=== PATIENT | female | born 1955 | race Caucasian/White ===

== ENCOUNTER 2023-09-13 17:35 | Inpatient (IN) | payer MEDICARE, OTHER, SELFPAY ==
[2023-09-13 12:55] VITALS: BP 180/111
[2023-09-13 13:43] LABS: % Basophils 0.3 % (0-2); % Eosinophils 2.2 % (0-6); % Immature Granulocytes 0.8 % (0-0.5); % Lymphocytes 21.7 % (20.5-51.1); % Monocytes 14.1 % (1.7-9.3); % Neutrophils 60.9 % (42.2-75.2); Absolute Eosinophils 0.1 10^3/uL (0-0.7); Absolute Immature Granulocytes 0.1 10^3/uL (0-0.05); Absolute Lymphocytes 1.3 10^3/uL (1.2-3.4); Absolute Monocytes 0.9 10^3/uL (0.1-0.6); Absolute Neutrophils 3.7 10^3/uL (1.4-6.5); Hematocrit 37.8 % (37.0-47.0); Hemoglobin 13.1 g/dL (12.0-16.0); Mean Corp Hgb Conc. 34.7 g/dL (33.0-37.0); Mean Corpuscular Hgb 31.1 pg (27.0-31.0); Mean Corpuscular Volume 89.8 fL (81.0-99.0); Mean Platelet Volume 9.6 fL (7.4-10.4); Nucleated Red Blood Cells % 0 %; Platelet Count 386 10^3/uL (130-400); Red Blood Cell Count 4.21 10^6/uL (4.20-5.40); Red Cell Dist. Width 13.6 % (11.5-14.5)
[2023-09-13 13:56] LABS: ALT (SGPT) 312 U/L (0-35); AST (SGOT) 131 U/L (14-36); Albumin 4.2 g/dl (3.5-5.0); Alkaline Phosphatase 184 U/L (38-126); Blood Urea Nitrogen 9 mg/dl (7-17); Calcium 9.6 mg/dl (8.4-10.2); Carbon Dioxide 23 mmol/L (22-30); Chloride 108 mmol/L (98-107); Glucose 109 mg/dl (70-99); Lipase 235 U/L (23-300); Potassium 3.7 mmol/L (3.5-5.1); Sodium 138 mmol/L (135-145); Total Bilirubin 6.2 mg/dl (0.2-1.3); Total Protein 7.6 g/dl (6.3-8.2); eGFR > 60.00
[2023-09-13 14:08] LABS: Troponin I < 0.012 ng/ml
[2023-09-13 15:20] VITALS: BP 166/92
[2023-09-13] MEDS: MORPHINE SULFATE 4 MG IV (15:47)
[2023-09-13] MEDS: ZOFRAN 4 MG IV (15:47)
--- NOTE | 2023-09-13 16:38 | ED.GENMED ---
History of Present Illness
General
Chief Complaint: Chest Pain
Source: patient and spouse
Exam Limitations: none
Time Seen by Provider: 09/13/23 13:06
Nursing documentation reviewed up to this point in time: agreed with
Travel History
Have you had any contact with someone who has COVID-19?: No
Do you have any symptoms of coronavirus? Fever > 100 degrees, chills, cough, shortness of breath, sore throat, loss of taste or smell, muscle aches, or headache?: No
History of Present Illness
History of Present Illness:
68-year-old female with a past medical history of hypertension, GERD who presents to the emergency room for evaluation of epigastric pain with nausea. Patient reports onset of symptoms about a week ago and they have been intermittent although
constant over the past few days. She reports a pressure sensation in the epigastric region. No clear triggering or relieving factors noted. She reports that she has had associated nausea. Had 1 episode of vomiting on Thursday. She reports very
poor appetite. She noticed that her stools have been very light color and her urine is getting darker. She says she is having generalized pruritus. She is concerned that she is having an issue with her gallbladder or liver and so she came to the
emergency room for assessment. She denies any chest pain or shortness of breath. She denies any fever or chills. She denies any history of liver issues or gallstones.
Past History
Social History
Tobacco: Non-smoker
Personal:
Review of Systems
Review of Systems
All Other Systems: ROS reviewed and negative except as documented in HPI and ROS
Constitutional: Denies fever or chills
EENT: Denies sore throat or runny nose
Respiratory: Denies cough or trouble breathing
Cardiac: Denies chest pain or palpitations
ABD/GI: Reports abdominal pain, nausea, vomiting, anorexia and other (Light stools); Denies diarrhea, constipated, bloody stools or black stools
: Reports dark urine; Denies dysuria or flank pain
Musculoskeletal: Denies neck pain or back pain
Neurological: Denies headache, weakness or numbness
Phy Exam
Physical Exam
Physical Exam:
General: Awake, alert, oriented x3; no acute distress
Head: Normocephalic, atraumatic
Eyes: Conjunctiva normal, sclera anicteric
Throat: Airway intact, handling secretions
Neck: Trachea midline, supple without meningismus
Lungs: Clear to auscultation bilaterally, no wheezing, rales, rhonchi
Heart: Regular rate and rhythm, no murmurs, gallops, or rubs
Abd: Soft, non distended, tender to palpation across the upper abdomen worst in the epigastric region
Neuro: Cranial nerves grossly intact, speech fluid
Skin: no rash
Extremities: No edema in extremities, equal pulses in all extremities
Scores
Heart Failure Risk
Heart Failure Risk Score: Not Applicable
Heart Score for Chest Pain Patients
STEMI patient?: Not applicable
Withdrawal Assessment of Alcohol
Withdrawal Assessment Completed?: Not applicable
Course
Orders/Labs/Results
Orders:
Orders
09/13/23 12:58
EKG [Electrocardiogram (*1)] Urgent
Reason for Study: Chest Pain
EKG- Treatment ONCE
09/13/23 13:29
Complete Blood Count/With Diff Urgent
Comprehensive Metabolic Panel Urgent
Lipase Urgent
Troponin I Urgent
09/13/23 14:27
US Abdomen Complete/Upper Urgent
Comment:
Reason For Exam: upper abd pain, tenderness
09/13/23 15:35
Morphine Sulfate 4 mg IV NOW STA
Ondansetron Injectable [Zofran] 4 mg IV NOW STA
09/13/23 17:14
Admit/Transfer Patient As Directed
Co-Sign Provider:
Level of Care: Inpatient admission
Assign to:: Medical/Surgical
Physician / Group: Simone
Diagnosis: CBD dilation
Reason for Hospitalization: CBD dilation
Expected length of stay greater than two midnights?: Yes
ELOS- Estimated Length of Stay in days: 5
I certify the patient meets the requirements for IP care: Yes
Abnormal Lab Results
09/13/23
13:29
MCH 31.1 H pg
(27.0-31.0)
Abs Immat Gran (auto) 0.1 H 10^3/uL
(0-0.05)
Absolute Monos (auto) 0.9 H 10^3/uL
(0.1-0.6)
Immature Gran % 0.8 H %
(0-0.5)
Monocytes % 14.1 H %
(1.7-9.3)
Chloride 108 H mmol/L
(98-107)
Glucose 109 H mg/dl
(70-99)
Total Bilirubin 6.2 H mg/dl
(0.2-1.3)
AST 131 H U/L
(14-36)
ALT 312 H U/L
(0-35)
Alkaline Phosphatase 184 H U/L
(38-126)
09/13/23 13:29
09/13/23 13:29
Vital Signs
Initial and Last Documented VS:
Initial Vital Signs
Temp Pulse Resp BP Pulse Ox
36.8 C 73 18 180/111 98
09/13/23 12:55 09/13/23 12:55 09/13/23 12:55 09/13/23 12:55 09/13/23 12:55
Last Documented Vital Signs
Temp Pulse Resp BP Pulse Ox
36.8 C 70 16 166/92 97
09/13/23 12:55 09/13/23 15:20 09/13/23 15:20 09/13/23 15:20 04/07/24 15:20
MDM/Problems Addressed
Differential Diagnosis Includes:
Cholelithiasis, cholecystitis, choledocholithiasis, gastritis, anginal equivalent
MDM/Problems Addressed:
68-year-old female presents for evaluation of epigastric discomfort associated with nausea, some vomiting, light stools, dark urine, generalized pruritus. Hypertensive but otherwise normal vitals. Physical exam as above. Plan placed IV check labs
including CBC and CMP, lipase. Will check an EKG and troponin. Will check an upper abdominal ultrasound. Will treat symptomatically. Reassess after the above.
Labs reviewed: CBC unremarkable, CMP shows elevated T. bili at 6.2 with elevated transaminases; lipase normal. Troponin undetectable. Her upper abdominal ultrasound reviewed by me shows dilated CBD but no clear signs of acute cholecystitis and
without any fever or leukocytosis low suspicion for this diagnosis. Clinical concern is for choledocholithiasis. Will plan to admit for GI consultation and further care. Case discussed with hospitalist for admission.
Ultrasound report reviewed�signs concerning for biliary ductal dilation by mass which is suspicious for pancreatic adenocarcinoma. I had a long discussion with the patient and her to explain likely diagnosis. Updated hospitalist.
Acute Exacerbation and/or Progression of Chronic Illness:
Acutely hypertensive
Acute Exacerbation and/or Progression of Chronic Illness: HTN
*Radiology
Radiology exam reviewed: preliminary read by ED provider and radiology read reviewed
*Pulse Oximetry
Patient hypoxic: no
*EKG
Interpreted by ED Provider?: Yes
Comparison EKG: no changes
Heart Rate: 51
Rate: bradycardiac
Rhythm: sinus
[place]: left axis deviation
Interval: normal interval
QRS Pattern: left vent hypertrophy
Ischemia: T-wave inversion
*Critical Care Note
Total Time (30-74mins, 75-104mins- exclusive of procedures): Not Applicable
Data Reviewed
Review of Other/Old Records Reveals: Labs and Records
Source: patient, records and spouse
Patient Management
Discussion with other providers: Hospitalist (Discussed with hospitalist)
Escalation/DeEscalation of care consider admission/obs:
Admission indicated
ED Attending Note
-
Portions of this chart may have been created with voice recognition software.� Occasional wrong word or��sound alike� substitutions may have occurred due to the inherent limitations of voice recognition software.
Discharge Plan
Departure
Patient Disposition: Admit
Date of Disposition: 09/13/23
Time of Disposition: 16:37
Admit to doctor: Beba
Presentation/result/management discussed w/ accepting MD/DO: Hospitalist
Discharge Problem:
Choledocholithiasis, Pancreatic cancer
Prescriptions:
No Action
diltiazem HCl 180 mg capsule,extended release 24hr
180 mg PO DAILY
omeprazole 40 mg capsule,delayed release(DR/EC)
40 mg PO DAILY
aspirin 81 mg Tablet,Delayed Release (Dr/Ec)
81 mg PO DAILY
fluticasone propionate [Flonase] 50 mcg/actuation [place],Suspension
1 spray INTRANASAL DAILY PRN (Reason: allergies)
Referrals:
Aramis George DO [Family Provider] -
Interventions
Interventions:
*Risk Screen - Suicide Last Done: 09/13/23 13:55
*General Assessment Last Done: 09/13/23 12:55
*Neglect/Abuse Screening Last Done: 09/13/23 13:55
ED- Fall Risk Assessment Last Done: 09/13/23 13:55
*ED COVID-19 Vaccine History Last Done: 09/13/23 12:55
ED- Cardiac Assessment Last Done: 09/13/23 13:55
Discharge Date and Time
Print Language: DOMINICAN
--- NOTE | 2023-09-13 17:08 | HPS.HSE ---
Family Physician
-
Family Physician: Aramis George
Chief Complaint
-
Epigastric pain and pressure with nausea and vomiting
History of Present Illness
68-year-old female with history of hypertension, presented to the hospital with the was complaining of epigastric pain and pressure over the last few days, has been intermittent, associated with recurrent nausea and nonbloody vomitus, so
primary care physician review restarted back on her PPI as was concerned about any GI or gastric related, also the meantime she noticed she has been losing weight with poor appetite also jaundice, admit. 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
Admitted pain is moderate in nature radiating to her back, no relieving aggravating factor, denies any fever or chill or cough or congestion, no chest pain or shortness of breath, nasal urinary symptoms.
Ultrasound of the abdomen showed pancreatic head mass and dilated biliary system.
Patient accompanied by the with they were told by the ER and had a long conversation with them they were kind a little surprised and shocked by the nose understandably so.
Medical History
Past Medical History
Past Medical History: Reports Other
Additional Past Medical History:
Past medical history:
Hypertension
GERD and gastritis
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
Family history: Father had esophageal cancers, also there is history of coronary artery disease and hypertension.
Past Surgical History: Reports Other
Social History
Alcohol: Other
Family History
Family History: Other
Allergies / Home Medications
Allergies reflects when Allergies were last updated in [employer].
Home Medications with original date entered in [employer]
Allergy/Medication List:
Allergies
Allergy/AdvReac Type Severity Reaction Status Date / Time
casein Allergy MILK Verified 09/13/23 12:57
PROTEIN-SINUS
INFECTIONS
AND
MIGRAINES
gluten [Gluten] Allergy sinus Verified 09/13/23 12:57
infection;headache
oxycodone Allergy hallucinati Verified 09/13/23 12:57
ons
Sulfa (Sulfonamide Allergy itchy Verified 09/13/23 12:57
Antibiotics) rash,jaundice
[Sulfa (Sulfonamides)]
Home Medications
aspirin 81 mg tablet,delayed release 81 mg PO DAILY 09/13/23
diltiazem HCl 180 mg capsule,extended release 24 hr 180 mg PO DAILY 09/13/23
fluticasone propionate 50 mcg/actuation nasal spray,suspension 1 spray intranasal DAILY PRN allergies 09/13/23
omeprazole 40 mg capsule,delayed release 40 mg PO DAILY 09/13/23
Review of Systems
-
A 12 point ROS was completed and negative except as noted: Yes
Physical Exam
Vital Signs
Vital Signs
Temp Pulse Resp BP Pulse Ox
98.3 F 70 16 166/92 97
09/13/23 12:55 09/13/23 15:20 09/13/23 15:20 09/13/23 15:20 09/13/23 15:20
Physical exam:
General: Anxious, sounds upset, awake, alert and oriented x3, not in distress and holds appropriate conversation.
HEENT: No active discharge, ecchymosis or bruising, moist lips, tongue and mucous membrane.
Eyes: Jaundiced, no discharge or red conjunctiva, no nystagmus, pupils are reactive and equal
Neck:Supple, no JVD no bruit no goiter.
Respiratory: Normal AP contour and diameter, normal chest wall movement, normal respiratory effort, no respiratory distress,
Lungs: Good air entry bilaterally, no wheezing or rhonchi, no rales or crackles
Heart: S1, S2 regular, normal rate, no added sound.
Gastrointestinal: Positive bowel sounds, soft, nontender, no guarding or rigidity or organomegaly
Musculoskeletal: , no chest wall abnormality or tenderness. All joints and extremities have good range of motion, no muscle tenderness or any joint swelling or tenderness.
Extremities: No pitting edema, good peripheral pulses, good range of motion
Skin: Warm and dry, no ulceration, normal color. Pale looking and jaundice,
Neurological: Awake, alert and oriented x3, no facial droop, moves extremities for, speech clear and comprehensive, good muscle tone,
Psychiatric: Anxious, normal thought and judgment, normal affect,
Physical Exam
General: Other
Laboratory Results
-
09/13/23 13:29
09/13/23 13:29
Laboratory Results
Total Bilirubin 6.2 mg/dl (0.2-1.3) H 09/13/23 13:29
AST 131 U/L (14-36) H 09/13/23 13:29
ALT 312 U/L (0-35) H 09/13/23 13:29
Alkaline Phosphatase 184 U/L (38-126) H 09/13/23 13:29
Troponin I < 0.012 ng/ml 09/13/23 13:29
Lipase Cancelled 09/13/23 14:27
US of abdomen:
1. 2.8 cm hypoechoic mass in the head of the pancreas obstructing the common bile duct and pancreatic duct consistent with PANCREATIC ADENOCARCINOMA.
2. SEVERE BILIARY DILATATION secondary to common bile duct obstruction.
3. Severe pancreatic ductal dilatation.
4. Mild diffuse hepatic steatosis.
EKG: Showed normal sinus bradycardia rate around 51, CT 150, QTc 405, normal axis otherwise nonspecific T wave abnormalities
Data Reviewed
-
Medical Tests (Nuc Med, Echo, EKG etc): Image Personally Visualized and interpreted, Discussed with Physician, Discussed with Nurse, Discussed with Patient and Discussed with Family
Lab Data: Labs Reviewed by me, Discussed with Patient and Discussed with Family
Old Records: Reviewed
Impression/Plan
-
IMPRESSION:
68-year-old female with history of hypertension, presented to the hospital with a few day history of epigastric pain and pressure with nausea and vomiting, workup showed biliary obstruction and pancreatic head mass, concerning for pancreatic head
malignancy while other causes may need to be considered.
Obstructive jaundice, likely secondary to common bile duct obstruction necrotic head mass
Pancreatic head mass
Severe pancreatic duct dilation
Mild fatty liver
Hypertension
Nausea and vomiting
PLAN:
The long conversation with the patient and the Offered support to patient and her family
For now we will do a full liquid diet
N.p.o. after midnight
MRCP
Recheck lab
IV fluid
Pain and nausea medication
GI consult
Is anxious with his new finding I will add Xanax as needed as discussed with the patient and the
Continue diltiazem and omeprazole.
CODE STATUS full code
DVT prophylaxis is heparin subcu for now
[2023-09-13] MEDS: MORPHINE SULFATE 2 MG IV (18:15)
[2023-09-13 18:30] VITALS: BP 165/78
[2023-09-13] MEDS: NSS 1000 IV (20:16)
[2023-09-13] MEDS: TYLENOL 650 MG PO (20:17)
[2023-09-13 21:20] VITALS: BP 138/53
[2023-09-13] MEDS: HEPARIN 5000 UNITS SC (23:10)
[2023-09-13] MEDS: BENADRYL 25 MG PO (23:11)
[2023-09-13 23:24] VITALS: BP 148/67
[2023-09-14] VITALS (11 sets, daily range): BP systolic 150–198; BP diastolic 70–86
[2023-09-14] MEDS: TYLENOL 650 MG PO ×2 (05:35→22:35)
--- NOTE | 2023-09-14 07:05 | CON.GI ---
Consultation
-
Date/Time Consultation Performed: 09/14/23
Performing Provider: Alberto Pena MD
Reason for Consultation: juandice, abdominal pain
Medical History
Chief Complaint / HPI
Chief Complaint: abdominal pain, juandice
History of Present Illness:
The patient is a 68-year-old female with past medical history as noted who presents with abdominal pain and jaundice. For the past several weeks, starting around Easter she is noticing some epigastric discomfort rating to her back, with occasional
nausea. She is lost some weight around this time with decreased appetite. About the past week she has been noticing light-colored stools and dark urine as well as pruritus. She does have some chills and no documented fevers. She denies any chest
pain or shortness of breath.
Past Medical History
Past Medical History: Other (Hypertension GERD and gastritis, Non-celiac gluten sensitivity. Dyspepsia. Erosive esophagitis. Colon polyps. Lymes disease.)
Past Surgical History: Other (Caesarean Section x 2() 1977 & 1984 oophorectomy left 2008 Procedure: Surgery for Ectopic (), right oophorectomy, [id number] Procedure: Lumpectomy() right breast-benign 1992
[facility]-12/02/11-[facility] Revision [facility] DOS: 07/04/2019)
Social History
Tobacco: Non-Smoker
Alcohol: Occasional
Family History
Family History: Other (1 grandparent with pancreatic cancer, father with esophageal cancer)
Allergies / Home Medications
Allergy/AdvReac Type Severity Reaction Status Date / Time
casein Allergy MILK Verified 09/13/23 12:57
PROTEIN-SINUS
INFECTIONS
AND
MIGRAINES
gluten [Gluten] Allergy sinus Verified 09/13/23 12:57
infection;headache
oxycodone Allergy hallucinati Verified 09/13/23 12:57
ons
Sulfa (Sulfonamide Allergy itchy Verified 09/13/23 12:57
Antibiotics) rash,jaundice
[Sulfa (Sulfonamides)]
�Medication �Instructions �Recorded
aspirin 81 mg tablet,delayed 81 mg PO DAILY 09/13/23
release
diltiazem HCl 180 mg 180 mg PO DAILY 09/13/23
capsule,extended release 24 hr
fluticasone propionate 50 1 spray intranasal DAILY PRN 09/13/23
mcg/actuation nasal allergies
spray,suspension
omeprazole 40 mg capsule,delayed 40 mg PO DAILY 09/13/23
release
Review of Systems
-
All other systems: A 12 pt ROS was Negative except as stated above in HPI
Vital Signs
Temp Pulse Resp BP Pulse Ox
97.9 F 55 18 148/67 95
09/13/23 23:24 09/13/23 23:24 09/13/23 23:24 09/13/23 23:24 09/13/23 23:24
Physical Exam
Exam
General: NAD, jaundice
HEENT: MMM, icteric, no lymphadenopathy
Heart: Regular, no murmurs
Lungs: CTA bilaterally
Abdomen: normal bowel sounds, soft, no tenderness, no rebound or guarding, no masses, bruits or ascites
Extremeties: no edema
Skin: no rashes
Results
WBC 6.0 10^3/uL (4.8-10.8) 09/13/23 13:29
Hgb 13.1 g/dL (12.0-16.0) 09/13/23 13:29
Hct 37.8 % (37.0-47.0) 09/13/23 13:29
MCV 89.8 fL (81.0-99.0) 09/13/23 13:29
Plt Count 386 10^3/uL (130-400) 09/13/23 13:29
Absolute Neuts (auto) 3.7 10^3/uL (1.4-6.5) 09/13/23 13:29
Sodium 138 mmol/L (135-145) 09/13/23 13:
Potassium 3.7 mmol/L (3.5-5.1) 09/13/23 13:
Chloride 108 mmol/L (98-107) H 09/13/23 13:29
Carbon Dioxide 23 mmol/L (22-30) 09/13/23 13:29
BUN 9 mg/dl (7-17) 09/13/23 13:
Creatinine 0.6 mg/dL (0.6-1.0) 09/13/23 13:
Calcium 9.6 mg/dl (8.4-10.2) 09/13/23 13:
Total Bilirubin 6.2 mg/dl (0.2-1.3) H 09/13/23 13:
AST 131 U/L (14-36) H 09/13/23 13:
ALT 312 U/L (0-35) H 09/13/23 13:
Alkaline Phosphatase 184 U/L (38-126) H 09/13/23 13:29
Lipase Cancelled 09/13/23 14:27
Diagnostic Image Results:
US:
IMPRESSION:
1. 2.8 cm hypoechoic mass in the head of the pancreas obstructing the common bile duct and pancreatic duct consistent with PANCREATIC ADENOCARCINOMA.
2. SEVERE BILIARY DILATATION secondary to common bile duct obstruction.
3. Severe pancreatic ductal dilatation.
4. Mild diffuse hepatic steatosis.
Prior GI Procedures:
EGD:
05/29:
Impression: - Normal esophagus.
- 2 cm hiatal hernia.
- Erythematous mucosa in the antrum. Biopsied.
- Normal gastric body. Biopsied.
- Normal examined duodenum.
- Biopsies were taken with a cold forceps for
evaluation of eosinophilic esophagitis.
Colonoscopy:
05/29:
Impression: - The examined portion of the ileum was normal.
- Diverticulosis in the sigmoid colon, in the
descending colon and in the transverse colon.
- Six 1 to 2 mm polyps in the sigmoid colon, in the
transverse colon and in the ascending colon, removed
with a jumbo cold forceps. Resected and retrieved.
- Internal hemorrhoids.
Assessment / Plan
-
1. Obstructive jaundice: With mass seen on ultrasound and duct dilation, highly suspicious for pancreatic cancer, though other etiologies including neuroendocrine tumor, autoimmune pancreatitis etc are not completely excluded. At this point we
will await MRI results, plan EUS/ERCP possibly today. I discussed with the patient at length.
-
-
Thank you for consultation and allowing me to participate in the patient's care. Please call the superintendent radio communications GI physician during the after hours with any questions or concerns.
[2023-09-14 07:06] LABS: % Basophils 0.4 % (0-2); % Eosinophils 2.1 % (0-6); % Immature Granulocytes 0.6 % (0-0.5); % Lymphocytes 29.4 % (20.5-51.1); % Monocytes 13.4 % (1.7-9.3); % Neutrophils 54.1 % (42.2-75.2); Absolute Eosinophils 0.1 10^3/uL (0-0.7); Absolute Lymphocytes 1.6 10^3/uL (1.2-3.4); Absolute Monocytes 0.7 10^3/uL (0.1-0.6); Absolute Neutrophils 2.9 10^3/uL (1.4-6.5); Hematocrit 35.8 % (37.0-47.0); Mean Corp Hgb Conc. 33.5 g/dL (33.0-37.0); Mean Corpuscular Volume 92.5 fL (81.0-99.0); Mean Platelet Volume 9.7 fL (7.4-10.4); Nucleated Red Blood Cells % 0 %; Platelet Count 372 10^3/uL (130-400); Red Blood Cell Count 3.87 10^6/uL (4.20-5.40); White Blood Cell Count 5.3 10^3/uL (4.8-10.8)
[2023-09-14 07:34] LABS: ALT (SGPT) 262 U/L (0-35); AST (SGOT) 122 U/L (14-36); Albumin 3.6 g/dl (3.5-5.0); Alkaline Phosphatase 166 U/L (38-126); Blood Urea Nitrogen 7 mg/dl (7-17); Carbon Dioxide 25 mmol/L (22-30); Chloride 106 mmol/L (98-107); Glucose 96 mg/dl (70-99); Magnesium 2.2 mg/dl (1.6-2.3); Potassium 3.6 mmol/L (3.5-5.1); Sodium 137 mmol/L (135-145); Total Bilirubin 7.3 mg/dl (0.2-1.3); Total Protein 6.7 g/dl (6.3-8.2); eGFR > 60.00
[2023-09-14 08:21] LABS: INR 0.95; PT 12.5 Sec (11.4-14.6)
[2023-09-14] MEDS: NSS 1000 IV (08:23)
[2023-09-14] MEDS: BENADRYL 25 MG PO ×2 (08:36→22:34)
[2023-09-14] MEDS: CARDIZEM CD 180 MG PO (08:36)
[2023-09-14] MEDS: PROTONIX 40 MG PO (08:36)
[2023-09-14] MEDS: HEPARIN 5000 UNITS SC ×2 (08:36→22:33)
[2023-09-14] MEDS: HEPARIN SC (15:41)
--- NOTE | 2023-09-14 15:48 | CM ---
manager intranet reviewed patient's chart and met with patient and patient lives with her spouse in a one story home, patient is independent with adl's and ambulation, no dme, patient drives, patient has a prescription plan and patient uses [facility].
PCP: Dr. George
Plan; Home when stable, no needs.
[2023-09-14] MEDS: ZOFRAN 4 MG IV (16:11)
--- NOTE | 2023-09-14 16:20 | PTCARENOTE ---
Dr. Gatica at bedside talking with pt.
--- NOTE | 2023-09-14 16:34 | PTCARENOTE ---
Dr. Kovacs aware of pt. BP 180-190's, pt. asymptomatic, no new orders obtained.
[2023-09-14] MEDS: LR 1000 IV (17:45)
--- NOTE | 2023-09-14 18:47 | W.PN.HOSP.TC ---
Addendum entered and electronically signed by Edwin Esparza MD 09/14/23 21:55:
Attending Addendum-
I saw and evaluated the patient. I reviewed the resident�s note and agree with findings and plan as documented in the resident�s note. patient has poor appetite, denies pain. Full 12 point ROS reviewed and negative except as documented Exam: GEN
NAD, HEENT- eyes with scleral icterus b/l, heart RRR, lungs clear abd soft NT ND pos bowel sounds LE no edema Plan:
# Head of Pancreas Mass- probable pancreatic malignancy, ERCP and EUS 09/13 Dr. Gatica- sphincterotomy with plastic stent placement and bx, reviewed MRCP, 3cm lesion with possible lea mets, c/s surg, c/s onc
# Obstructive Painless Jaundice- should improve after stent placement 09/13 repeat labs in am
# GERD- cont meds
# HTN- stable monitor cont meds
Time spent coordinating care, review of plan of care with resident, review of records, med rec, consults, notes, labs, rads, d/w nursing and POA Phong� 59 mins
Original Note:
Today's Communication/Plan
-
Oncologist and Surgical Oncologist consulted
Assessment / Plan
Assessment / Plan
IMPRESSIOM
This is a 68 y/o female patient that presented to ED with PMH of Hypertension,GERD, gastritis, Non-celiac gluten sensitivity, Dyspepsia,Erosive esophagitis,Colon polyps with epigastric pain radiating to back, decreased appetite and nausea.
PLAN:
#Pancreatic Head Mass (likely adenocarcinoma)
-MRI done today showed 3cm pancreatic head adenocarcinoma, complete distal common hepatic duct dilatation
-ERCP done today, ERCP images obtained during sphincterotomy, common bile duct dilatation and stent placement.
-Abnormal LFTs ( trended down AST:122, ALT: 262, ALP:166) and Total Bili trended up (7.3)
-Oncologist and surgical oncologist consulted, pending.
-Continue Zofran prn, morphine prn
#GERD
-continue protonix
#HTN
-continue diltiazem
DVT: HSQ
Full Code
Anticipated Discharge: > 48 hours
Subjective/Interval History
-
Date of Service: September 14, 2023
Patient currently does not have any acute complaints.
Objective Data
-
Labs:
Laboratory Results
09/14/23 09/14/23
05:39 07:39
WBC 5.3
Hgb 12.0
Hct 35.8 L
Plt Count 372
PT 12.5
INR 0.95
Sodium 137
Potassium 3.6
Chloride 106
Carbon Dioxide 25
BUN 7
Creatinine 0.6
Glucose 96
Calcium 9.0
Total Bilirubin 7.3 H
AST 122 H
ALT 262 H
Alkaline Phosphatase 166 H
Vital Signs:
Vital Signs
Temp Pulse Resp BP Pulse Ox
98.4 F 54 17 183/80 96
09/14/23 18:30 09/14/23 18:30 09/14/23 18:30 09/14/23 18:30 09/14/23 18:30
Review of Systems
-
History Source: Patient
All other systems: Reviewed and negative
Physical Exam
-
General: No Apparent Distress
HEENT: Normocephalic and Anicteric (icteric)
Respiratory: Clear to Auscultation
Cardiac: Regular Rhythm and S1/S2; Negative Murmur
GI: Soft and Normal Bowel Sounds
Musculoskeletal: No Edema
Neuro: Awake, Alert and Oriented
Psych: Intact Judgement/Insight
[2023-09-14 19:02] LABS: Hepatitis C Antibody Negative (Negative)
[2023-09-15] MEDS: LR 1000 IV ×3 (01:20→14:31)
[2023-09-15 03:30] VITALS: BP 126/68
[2023-09-15 07:30] VITALS: BP 141/72
[2023-09-15 08:26] LABS: % Basophils 0.1 % (0-2); % Eosinophils 0.2 % (0-6); % Immature Granulocytes 0.8 % (0-0.5); % Lymphocytes 8.6 % (20.5-51.1); % Monocytes 3.4 % (1.7-9.3); % Neutrophils 86.9 % (42.2-75.2); Absolute Immature Granulocytes 0.1 10^3/uL (0-0.05); Absolute Lymphocytes 0.8 10^3/uL (1.2-3.4); Absolute Monocytes 0.3 10^3/uL (0.1-0.6); Hematocrit 31.7 % (37.0-47.0); Hemoglobin 10.7 g/dL (12.0-16.0); Mean Corp Hgb Conc. 33.8 g/dL (33.0-37.0); Mean Corpuscular Volume 91.9 fL (81.0-99.0); Mean Platelet Volume 9.7 fL (7.4-10.4); Nucleated Red Blood Cells % 0 %; Platelet Count 369 10^3/uL (130-400); Red Blood Cell Count 3.45 10^6/uL (4.20-5.40); Red Cell Dist. Width 13.9 % (11.5-14.5); White Blood Cell Count 9.2 10^3/uL (4.8-10.8)
[2023-09-15] MEDS: CARDIZEM CD 180 MG PO (08:29)
[2023-09-15] MEDS: PROTONIX 40 MG PO (08:29)
[2023-09-15] MEDS: HEPARIN 5000 UNITS SC (08:30)
[2023-09-15 09:11] LABS: ALT (SGPT) 196 U/L (0-35); AST (SGOT) 64 U/L (14-36); Albumin 3.3 g/dl (3.5-5.0); Alkaline Phosphatase 151 U/L (38-126); Blood Urea Nitrogen 14 mg/dl (7-17); Calcium 9.3 mg/dl (8.4-10.2); Carbon Dioxide 22 mmol/L (22-30); Chloride 107 mmol/L (98-107); Estimated Creatinine Clearance 77 ml/min; Glucose 156 mg/dl (70-99); Potassium 3.9 mmol/L (3.5-5.1); Sodium 136 mmol/L (135-145); Total Bilirubin 2.5 mg/dl (0.2-1.3); Total Protein 6.2 g/dl (6.3-8.2); eGFR > 60.00
--- NOTE | 2023-09-15 09:30 | CON.ONC ---
Addendum entered and electronically signed by Genoveva Jarrett MD 09/15/23 14:44:
68 yo F presented w/ painless jaundice, found to have a likely adenocarcinoma of pancreatic head. MRI abd without liver involvement, though questionable invasion of portal vein by ERCP. Stent placed and biopsy pending. CA19-9 pending. She's been
seen by Dr. Padgett re: surgical opinion.
Plan to complete staging w/ CT chest/pelvis, await CA19-9
Her case will be discussed at 09/16 tumor board to consider upfront surgery w/ adjuvant chemo or neoadj chemo then surgery, which we discussed briefly today.
Med onc f/u TBD.
Will follow along.
Original Note:
Impression
Impression
Obstructive painless jaundice s/p biliary stent 09/13
Pancreatic head adenocarcinoma
Poor appetite
Unintentional weight loss ~12 lbs
Epigastric pain/discomfort
Plan
Plan
09/13 s/p ERCP with CBD dilatation and stent placement
Pathology pending
Additional labs have been ordered and remain pending including CA 19-9 level
09/14 Hgb 10.7, Hct 31.7
Monitor CBC w/ diff daily
Transfuse as needed to maintain Hgb >7, PLT >[address] Padgett regarding surgical intervention
Additional imaging ordered: CT chest, CT pelvis
Urinalysis/urine culture ordered due to reports of dysuria
Supportive care, emotional support
Reviewed chemotherapy/surgical planning/treatment options at length with Dr. Jarrett, patient and family. They understand we need to await final pathology report to determine the plan. Her case will be presented this at tumor board.
Vaurum provided. Office notified of new patient.
Patient History
History of Present Illness
Kadi Juárez is a pleasant 68-year-old female who presented to the ED, 09/12, for evaluation of persistent epigastric pain/pressure, generalized pruritus, poor appetite, unintentional weight loss of 12 lbs, and acute nausea/vomiting. She reported 1
episode of vomiting on Thursday. She noticed that her stools have been very light color and that her urine is getting darker. She was concerned that she was having an issue with her liver due to evidence of jaundice, so she came to the emergency room
for further assessment. She denies fevers, chest pain, SOB/BRIDGES, evidence of bleeding/bruising, or edema. She notes she has had chills at night. Denies drenching night sweats.
Past-Medical/Surgical History
Hypertension
Dyspepsia
Erosive esophagitis
Hx colon polyps
Hx Lyme disease
GERD
Gastritis
C section x2
Appendectomy
Right breast lumpectomy (benign)
Oophorectomy 2007
Hx ectopic
Family history:
Father- hx lung/esophageal cancer
Brother- hx lung cancer, heavy 3ppd smoker, ETOH ()
paternal Grandmother- hx pancreatic cancer
Patient Medication
�Medication �Instructions �Recorded �Confirmed �Last Taken �Type
aspirin 81 mg tablet,delayed 81 mg PO DAILY Blood Clot 09/13/23 09/13/23 09/13/23 History
release Prevention/Tx
diltiazem HCl 180 mg 180 mg PO DAILY Heart 09/13/23 09/13/23 09/13/23 History
capsule,extended release 24 hr Disease/Condition
fluticasone propionate 50 1 spray intranasal DAILY PRN 09/13/23 09/13/23 Unknown History
mcg/actuation nasal allergies
spray,suspension
omeprazole 40 mg capsule,delayed 40 mg PO DAILY Gastrointestinal 09/13/23 09/13/23 09/13/23 History
release Issue
Active Medications
Generic Name Dose Route Start Last Admin
Trade Name Freq PRN Reason Stop Dose Admin
Acetaminophen 650 mg 09/13/23 17:44 09/14/23 22:35
Acetaminophen 325 Mg Tablet PO 10/11/23 17:43 650 mg
Q4HPRN PRN Administration
mild pain/ROSENTHAL/temp> 100.4F
Alprazolam 0.125 mg 09/13/23 19:34
Alprazolam 0.25 Mg Tablet PO 10/11/23 17:43
Q8HPRN PRN
anxiety
Diltiazem HCl 180 mg 09/14/23 08:00 09/15/23 08:29
Diltiazem 180 Mg Extended Release (24 H) Capsule PO 10/12/23 07:59 180 mg
DAILY ROSENDA Administration
Diphenhydramine HCl 25 mg 09/13/23 20:30 09/14/23 22:34
Diphenhydramine 25 Mg Capsule PO 10/11/23 20:29 25 mg
Q4HPRN PRN Administration
itching
Heparin Sodium 5,000 units 09/14/23 00:00 09/15/23 08:30
Heparin 5,000 Units/Ml 1 Ml Vial SC 10/12/23 00:00 5,000 units
Q8 ROSENDA Administration
Hydromorphone HCl 0.25 mg 09/14/23 15:56
Hydromorphone 0.25 Mg/0.5 Ml Syringe IV 09/15/23 15:56
PACU-Q5MPRN PRN
severe pain
Parenteral Electrolytes 1,000 mls @ 100 mls/hr 09/14/23 16:00
Normosol-R IV 09/15/23 15:56
PER PROTOCOL ROSENDA
Lactated Ringer's 1,000 mls @ 175 mls/hr 09/14/23 17:00 09/15/23 08:25
Lr IV 1,000 mls
.Q5H43M ROSENDA Administration
Meperidine HCl 12.5 mg 09/14/23 15:56
Meperidine 25 Mg/Ml Injection IV 09/15/23 15:56
PACU-Q5MPRN PRN
shivers
Morphine Sulfate 2 mg 09/13/23 20:00 09/13/23 18:15
Morphine 2 Mg/Ml Syringe IV 09/27/23 19:59 2 mg
Q4HPRN PRN Administration
severe pain
Morphine Sulfate 1 mg 09/14/23 15:56
Morphine 2 Mg/Ml Syringe IV 09/15/23 15:56
PACU-Q5MPRN PRN
moderate pain
Ondansetron HCl 4 mg 09/13/23 22:00
Ondansetron 4 Mg/2 Ml Vial IV 10/11/23 21:59
Q6HPRN PRN
nausea and vomiting
Pantoprazole Sodium 40 mg 09/14/23 08:00 09/15/23 08:29
Pantoprazole 40 Mg Delayed Release Tablet PO 10/12/23 07:59 40 mg
DAILY ROSENDA Administration
Prochlorperazine Edisylate 5 mg 09/14/23 15:56
Prochlorperazine 10 Mg/2 Ml Vial IV 09/15/23 15:56
PACU-ONCEPRN PRN
nausea/vomiting
Sodium Chloride 0 flush 09/13/23 18:00
Sodium Chloride 0.9% (Flush) Syringe IV 10/11/23 17:59
PER PROTOCOL ROSENDA
Review of Systems
-
History Source: Patient, Family, Physician, Coordinated Provider and Records
Constitutional: Reports Fever (low grade, 99.0 documented this AM ), Weight Loss, No Appetite and Chills
EENT: Reports No Symptoms
Respiratory: Reports No Symptoms
Cardiac: Reports No Symptoms
GI: Reports Anorexia, Pain ('epigastric pressure' (improved) ) and Other (+belching)
Breast: Reports N/A
: Reports Dysuria
Musculoskeletal: Reports No Symptoms
Skin: Reports Itching ((improving))
Neuro: Reports No Symptoms
Endocrine: Reports No Symptoms
Hematologic/Lymphatic: Reports No Symptoms
Allergy / Immunology: Reports No Symptoms
Psych: Reports No Symptoms
Physical Exam
-
Patient is resting in bed, at bedside. She states she is feeling improved s/p biliary stent. She describes the epigastric pressure as being relieved. Continues with poor appetite. States her pruritus has improved. She complains of
dysuria/burning/itching with urination. with questions regarding chemotherapy/surgery pans.
General: Well Developed, Well Nourished, No Apparent Distress, Comfortable and Conversant
HEENT: Jaundice (+scleral icterus)
Cardiology: S1 and S2
Pulmonary: Clear
GI: Soft and Normal Bowel Sounds (hypoactive)
Genito-Urinary: Deferred by me
Musculoskeletal: No Edema
Extremities: Pulses Present
Neurology: Non Focal
Skin: Warm, Dry and Jaundice
Hematologic / Lymphatic: No Lymphadenopathy and No Petechiae
Psych: Calm
Labs
Lab Results
WBC 9.2 10^3/uL (4.8-10.8) 09/15/23 08:00
RBC 3.45 10^6/uL (4.20-5.40) L 09/15/23 08:00
Hgb 10.7 g/dL (12.0-16.0) L 09/15/23 08:00
Hct 31.7 % (37.0-47.0) L 09/15/23 08:00
MCV 91.9 fL (81.0-99.0) 09/15/23 08:00
MCH 31.0 pg (27.0-31.0) 09/15/23 08:00
MCHC 33.8 g/dL (33.0-37.0) 09/15/23 08:00
RDW 13.9 % (11.5-14.5) 09/15/23 08:00
Plt Count 369 10^3/uL (130-400) 09/15/23 08:00
MPV 9.7 fL (7.4-10.4) 09/15/23 08:00
Abs Immat Gran (auto) 0.1 10^3/uL (0-0.05) H 09/15/23 08:00
Absolute Neuts (auto) 8.0 10^3/uL (1.4-6.5) H 09/15/23 08:00
Absolute Lymphs (auto) 0.8 10^3/uL (1.2-3.4) L 09/15/23 08:00
Absolute Monos (auto) 0.3 10^3/uL (0.1-0.6) 09/15/23 08:00
Absolute Eos (auto) 0.0 10^3/uL (0-0.7) 09/15/23 08:00
Absolute Basos (auto) 0.0 10^3/uL (0-0.2) 09/15/23 08:00
Immature Gran % 0.8 % (0-0.5) H 09/15/23 08:00
Neutrophils % 86.9 % (42.2-75.2) H 09/15/23 08:00
Lymphocytes % 8.6 % (20.5-51.1) L 09/15/23 08:00
Monocytes % 3.4 % (1.7-9.3) 09/15/23 08:00
Eosinophils % 0.2 % (0-6) 09/15/23 08:00
Basophils % 0.1 % (0-2) 09/15/23 08:00
Creatinine 0.6 mg/dL (0.6-1.0) 09/15/23 08:00
Vital Signs
Vital Signs
Temp Pulse Resp BP Pulse Ox
98.5 F 62 18 141/72 97
09/15/23 07:30 09/15/23 07:30 09/15/23 07:30 09/15/23 07:30 09/15/23 07:30
09/14/23 MRI abdomen: 3.0 cm PANCREATIC HEAD ADENOCARCINOMA.COMPLETE DISTAL COMMON HEPATIC DUCT OBSTRUCTION with severe intrahepatic biliary dilatation. Mildly enlarged ben hepatis and portacaval lymph nodes suspicious for lea metastases.Small
hiatal hernia.Severe diverticulosis in the sigmoid colon.Mild cardiomegaly.
09/14/23 ERCP: ERCP images obtained during sphincterotomy, common bile duct dilatation and stent placement.
[2023-09-15 10:30] LABS: Reticulocyte Count 1.7 % (0.4-2.8)
--- NOTE | 2023-09-15 10:56 | CON.SURG ---
Surgical Consultation
-
She is a 68-year-old woman who was recently diagnosed with a pancreatic head tumor. On 09/13/23, she presented with epigastric pain, nausea, vomiting, recent weight loss, dark urine, and christ-colored stool. Subsequently, she had an abdominal
ultrasound and MRI, demonstrating a 3 cm pancreatic head mass without involving surrounding vessels, including the portal vein, hepatic artery, or superior mesenteric artery. She underwent ERCP with biliary stent placement and EUS with the biopsy of
the mass, which demonstrated a 2 cm well-defined pancreatic tumor abutting the portal vein with possible invasion. The pathology results are pending. I reviewed the ultrasound and MRI films and the official readings in my office. She also denied
alcohol or tobacco abuse or a history of pancreatitis or diabetes. She has been feeling better since the stent placement.
Her past medical history is significant for GERD and HTN. She is allergic to Oxycodone, casein, gluten, and sulfa drugs.
She was icteric. Her head and neck examination revealed no lymphadenopathy or masses. The heart had a regular rate and no murmurs. The chest was clear bilaterally. The abdomen was soft, nondistended, and without masses. She had minimal epigastric
tenderness to palpation.
Her LFTs have improved since the stent placement. Her last total bilirubin level from today was 2.5.
I had a long discussion with Mrs. Juárez and her regarding managing her pancreatic cancer. I informed them that the only therapy that has definitively been shown to increase the survival of patients with pancreatic cancer is surgical
resection. For patients with diseases not amenable to curative resection, little has been shown to impact survival significantly. Her radiographic studies reveal no obvious contraindications for surgical resection. However, there is a question of a
possible portal vein invasion, for which we may need to consider neoadjuvant chemotherapy followed by surgery. I will review the workup with Dr. Gatica and the radiologists regarding the possible portal vein involvement. I recommend CT of the chest and
pelvis, ordering CA19-9 level while she is in the hospital to complete the workup. I will see her in my office next week as an outpatient for further recommendation.
[2023-09-15 11:00] VITALS: BP 154/66
--- NOTE | 2023-09-15 12:16 | W.PN.GI.CBS2 ---
Today's Communication / Plan
-
T's marked improvement today
on clear diet will increase diet after CT as tolerating clears
s/p surgical and oncology evaluation
await surgical path
for further imaging with CT chest and pelvis
CA 19-9 pending
for possible discharge later today
family updated
Assessment / Plan
-
The patient is a 68-year-old female with past medical history GERD, gastritis, non Gluten sensitivity, dyspepsia, esophagitis presents with abdominal pain and jaundice with concern for obstructive jaundice. s/p MRI, EUS and ERCP with concern for
pancreatic mass with stent placement.
09/13 MRI abdomen
1. 3.0 cm PANCREATIC HEAD ADENOCARCINOMA.
2. COMPLETE DISTAL COMMON HEPATIC DUCT OBSTRUCTION with severe intrahepatic biliary dilatation.
3. Mildly enlarged ben hepatis and portacaval lymph nodes suspicious for lea metastases.
4. Small hiatal hernia.
5. Severe diverticulosis in the sigmoid colon.
6. Mild cardiomegaly.
09/13 EUS - A mass was identified in the pancreatic head. This
was staged T2 Nx Mx by endosonographic criteria. Fine
needle aspiration performed.
- One enlarged lymph node was visualized in the ben
hepatis region.
- There was dilation in the common bile duct which
measured up to 17 mm.
- There was no sign of significant pathology in the
ampulla.
- There was no evidence of significant pathology in
the left lobe of the liver.
09/13 ERCP
- The major papilla appeared normal.
- A single localized severe biliary stricture was
found in the middle third of the main bile duct. The
stricture was malignant appearing.
- The upper third of the main bile duct was severely
dilated.
- A biliary sphincterotomy was performed.
- The middle third of the main bile duct was
successfully dilated.
- One plastic stent was placed into the common hepatic
duct.
- obstructive jaundice with concern for pancreatic head mass with biliary stricture s/p stent
-hx dyspepsia/ erosive esophagitis
-decreased appetite
-anemia
other medical problems:
-colon polyps
-lyme disease
-gastritis
GERD
appe
lumpectomy
appe
PLAN:
LFT's marked improvement today
on clear diet will increase diet after CT as tolerating clears
s/p surgical and oncology evaluation
await surgical path
for further imaging with CT chest and pelvis
CA 19-9 pending
for possible discharge later today
family updated
Subjective
Subjective
Date of Service: September 15, 2023
on clear diet feeling much better than admission
Objective
Data Reviewed
Laboratory Data:
Laboratory Results
09/15/23 08:00
09/15/23 08:00
Laboratory Results
PT 12.5 Sec (11.4-14.6) 09/14/23 07:39
INR 0.95 09/14/23 07:39
Magnesium 2.2 mg/dl (1.6-2.3) 09/14/23 05:39
Total Bilirubin 2.5 mg/dl (0.2-1.3) H D 09/15/23 08:00
AST 64 U/L (14-36) H 09/15/23 08:00
ALT 196 U/L (0-35) H 09/15/23 08:00
Alkaline Phosphatase 151 U/L (38-126) H 09/15/23 08:00
Lipase Cancelled 09/13/23 14:27
Vital Signs and I&O:
Vital Signs
Temp Pulse Resp BP Pulse Ox
99.0 F 58 18 154/66 97
09/15/23 11:00 09/15/23 11:00 09/15/23 11:00 09/15/23 11:00 09/15/23 11:00
I&O
09/14/23 09/15/23 09/16/23
06:59 06:59 06:59
Intake Total 2580 / 2580
Balance 2580 / 2580
Physical Exam
Physical Exam
HEENT: Other (minimal jaundice )
Cardiology: Normal Sinus Rhythm
Pulmonary: Clear
GI: Soft, Non Distended and Non Tender
Extremities: No Edema
Neuro: Non Focal
[2023-09-15 13:00] LABS: Urine Albumin Negative (Neg - Trace); Urine Bilirubin Negative (Negative); Urine Character Clear (Clear); Urine Color Yellow; Urine Glucose Trace (Negative); Urine Ketone Negative (Negative); Urine Leukocyte Negative (Negative); Urine Nitrite Negative (Negative); Urine Occult Blood Negative (Negative); Urine Urobilinogen Negative (Neg - 1+)
--- NOTE | 2023-09-15 13:05 | CM ---
Chart reviewed and plan is to home when stable.
Plan; Home when stable.
[2023-09-15 15:30] VITALS: BP 168/70
[2023-09-15 16:10] LABS: LDH 286 U/L (120-246)
--- NOTE | 2023-09-15 16:36 | W.DS.TRANS ---
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
-
Discharge Instructions:
Instructions:
Stand-Alone Forms:
Changes to Home Medications: No
Discharge Medications:
DC Medications w/original date entered in [facility]box
aspirin 81 mg tablet,delayed release 81 mg PO DAILY Blood Clot Prevention/Tx 09/13/23
diltiazem HCl 180 mg capsule,extended release 24 hr 180 mg PO DAILY Heart Disease/Condition 09/13/23
fluticasone propionate 50 mcg/actuation nasal spray,suspension 1 spray intranasal DAILY PRN allergies 09/13/23
omeprazole 40 mg capsule,delayed release 40 mg PO DAILY Gastrointestinal Issue 09/13/23
Home Medication Changes
Pending Results: Yes
Additional Pending Results:
CA 19-9 pending
--- NOTE | 2023-09-15 16:39 | W.DCSUMMARY ---
Addendum entered and electronically signed by Edwin Esparza MD 09/15/23 22:39:
Attending Addendum:
Read reviewed and agree. See same day progress note for additional details.
Jake Esparza MD
Original Note:
Documented by User: Caren Butcher, Resident, 09/15/23 17:28
Discharge Summary
Discharge Data
Date of Admission: 09/13/23
Date of Discharge: 09/15/23
-
Pending Results: Yes
Additional Pending Results:
CA 19-9 pending
Hospital Course
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
Ultrasound of the abdomen on 09/12 showed 2.8cmpancreatic head mass and obstructing the common bile duct and pancreatic duct. After MRI Abdomen on 09/13 was done showing 3.0 cm pancreatic head adenocarcinoma, complete distal common hepatic duct
obstruction with severe intrahepatic biliary dilatation. LFT's increased. GI consulted and ERCP done with sphincterotomy, common bile duct dilatation and stent placement by along with biopsy of mass. Biopsy confirmed adenocarcinoma. Surgical
oncologist and oncologist were consulted. CT Abdomen on 09/14 showed no metastasis and CT Chest on 09/14 showed 6 mm lung nodule in the left upper lobe and 2 mm lung nodule within the left lower lobe. Discussed with patient about CT
chest. LFT's trending down. Surgical oncology considering upfront surgery w/ adjuvant chemo or neoadj chemo then surgery. CA19-9 pending.
Discharged patient,follow up with surgical oncology outpatient and [facility] in [place] as patient's new PCP.
Discharge Plan
-
Patient Disposition: Home (Routine Discharge)
Discharge Diagnosis/Procedures: Pancreatic Head Adenocarcinoma
Diet: No restrictions
Referrals:
Aramis Geroge DO [Family Provider] -
Prescriptions:
Continued
diltiazem HCl 180 mg capsule,extended release 24hr
180 mg PO DAILY
omeprazole 40 mg capsule,delayed release(DR/EC)
40 mg PO DAILY
aspirin 81 mg Tablet,Delayed Release (Dr/Ec)
81 mg PO DAILY
fluticasone propionate 50 mcg/actuation [place],Suspension
1 spray INTRANASAL DAILY PRN (Reason: allergies)
Discharge Orders:
Discharge Patient (As Directed); Ordered 09/15/23
Ordered By: Caren Butcher
Discharge Date and Time
Discharge Date/Time: 09/15/23 17:27
Print Language: [place]

Documented by User: Edwin Esparza MD 09/15/23 22:27
Discharge Summary
Discharge Data
Date of Admission: 09/13/23
Date of Discharge: 09/15/23
Discharge Plan
-
Patient Disposition: Home (Routine Discharge)
Discharge Diagnosis/Procedures: Pancreatic Head Adenocarcinoma
Diet: No restrictions
Referrals:
Aramis George DO [Family Provider] -
Prescriptions:
Continued
diltiazem HCl 180 mg capsule,extended release 24hr
180 mg PO DAILY
omeprazole 40 mg capsule,delayed release(DR/EC)
40 mg PO DAILY
aspirin 81 mg Tablet,Delayed Release (Dr/Ec)
81 mg PO DAILY
fluticasone propionate 50 mcg/actuation [place],Suspension
1 spray INTRANASAL DAILY PRN (Reason: allergies)
Discharge Orders:
Discharge Patient (As Directed); Ordered 09/15/23
Ordered By: Caren Butcher
Discharge Date and Time
Discharge Date/Time: 09/15/23 17:27
Print Language: [place]
--- NOTE | 2023-09-15 17:11 | PTCARENOTE ---
Patient for discharge, instructions reviewed, present. No further questions , verbalized understanding
--- NOTE | 2023-09-15 17:28 | W.PN.HOSP.TC ---
Addendum entered and electronically signed by Edwin Esparza MD 09/15/23 22:38:
Attending Addendum-
I saw and evaluated the patient. I reviewed the resident�s note and agree with findings and plan as documented in the resident�s note. feels that jaundice has decreased. no abd pain. complains of dysuria, Full 12 point ROS reviewed and negative
except as documented Exam: GEN-NAD, HEENT- PEERLA eyes with scleral icterus b/l, heart RRR, lungs clear abd soft NT ND pos bowel sounds LE no edema Plan:
# Head of Pancreas Mass- pancreatic adenocarcinoma confirmed with path, ERCP and EUS 09/13 Dr. Gatica- sphincterotomy with plastic stent placement and bx, reviewed MRCP, 3cm lesion with possible lea mets, c/s d/w Dr. Padgett ct c and P ordered ca 19-9
pending
# Obstructive Painless Jaundice- improved after stent placement 09/13 Dr. Gatica in [facility], repeat labs reviewed decreased LFT and t bili
# Dysuria- check UA - reviewed, not a UTI f/u as OP
# Pulmonary Nodules- need to f/u as OP d/w patient and , doesn't appear metastatic, personally reviewed, f/u lung ca screening protocol
# GERD- cont meds
# HTN- stable monitor cont meds
Dispo-DC home with close follow up surg/onc, GI, information given as requested for follow up in residency clinic within one week
Time spent coordinating care, review of plan of care with resident, review of records, med rec, consults, notes, labs, rads, d/w nursing and POA DC planning� 39 mins
Original Note:
Today's Communication/Plan
-
CA-19-9 pending. Discharge to home pending.
Assessment / Plan
Assessment / Plan
IMPRESSIOM
This is a 68 y/o female patient that presented to ED with PMH of Hypertension,GERD, gastritis, Non-celiac gluten sensitivity, Dyspepsia,Erosive esophagitis,Colon polyps with epigastric pain radiating to back, decreased appetite and nausea.
PLAN:
#Pancreatic Head Mass (likely adenocarcinoma)
-MRI done showed 3cm pancreatic head adenocarcinoma, complete distal common hepatic duct dilatation
-ERCP done with sphincterotomy, common bile duct dilatation and stent placement with biopsy
-Biopsy confirmed adenocarcinoma.
-CT pelvis showed no metastasis
-CT chest showed 6mm RAMON lobe and 2mm nodules LL lobe. Discussed with patient.
-LFT's are trending down.
-CA 19-9 pending and haptoglobin pending
-Oncologist and surgical oncologist consulted; she will follow outpatient surgical oncology.
-Discharge pending mostly today.
#GERD
-continue protonix
#HTN
-continue diltiazem
DVT: HSQ
Full Code
Anticipated Discharge: Today
Subjective/Interval History
-
Date of Service: September 15, 2023
Patient does not have any acute concerns.
Objective Data
-
Labs:
Laboratory Results
09/15/23
08:00
WBC 9.2
Hgb 10.7 L
Hct 31.7 L
Plt Count 369
Sodium 136
Potassium 3.9
Chloride 107
Carbon Dioxide 22
BUN 14
Creatinine 0.6
Glucose 156 H
Calcium 9.3
Total Bilirubin 2.5 H D
AST 64 H
ALT 196 H
Alkaline Phosphatase 151 H
Vital Signs:
Vital Signs
Temp Pulse Resp BP Pulse Ox
98.9 F 54 18 168/70 96
09/15/23 15:30 09/15/23 15:30 09/15/23 15:30 09/15/23 15:30 09/15/23 15:30
I&O
09/14/23 09/15/23 09/16/23
06:59 06:59 06:59
Intake Total 2580 / 2580 1440 / 1440
Balance 2579 1440 / 1440
Review of Systems
-
History Source: Patient
All other systems: Reviewed and negative
Physical Exam
-
General: No Apparent Distress
HEENT: Normocephalic
Respiratory: Clear to Auscultation
Cardiac: Regular Rhythm and S1/S2; Negative Murmur
GI: Soft, Nontender, Nondistended and Normal Bowel Sounds
Musculoskeletal: No Edema
Neuro: Awake, Alert and Oriented
Psych: Intact Judgement/Insight
[2023-09-17 07:53] LABS: CA 19-9 99 U/mL (<=35)
[2023-09-17 08:06] LABS: Haptoglobin 80 mg/dL (30-200)
== END 2023-09-15 17:27 | disposition home or self-care (01) | DRG 435 ==
LOC: 4 WEST ACU 17:35
PROVIDERS: Internal Medicine Gastroenterology; Nurse Practitioner Family; ADMITTING PHYSICIAN Internal Medicine; ATTENDING PHYSICIAN Family Medicine; CONSULT PHYSICIAN Internal Medicine Gastroenterology; CONSULT PHYSICIAN Internal Medicine Hematology & Oncology; CONSULT PHYSICIAN Surgery; EMERGENCY PHYSICIAN Emergency Medicine; FAMILY PHYSICIAN Internal Medicine
PROC: BF47ZZZ Ultrasonography of Pancreas (ICD-10-PCS; 2023-09-14)
PROC: 0FBG8ZX Excision of Pancreas, Via Natural or Artificial Opening Endoscopic, Diagnostic (ICD-10-PCS; 2023-09-14)
PROC: 0F798DZ Dilation of Common Bile Duct with Intraluminal Device, Via Natural or Artificial Opening Endoscopic (ICD-10-PCS; 2023-09-14)
DX: C25.0 Malignant neoplasm of head of pancreas (principal); K83.1 Obstruction of bile duct; I10 Essential (primary) hypertension; K21.9 Gastro-esophageal reflux disease without esophagitis
CPT/HCPCS: 88172; 88173; 88305; 71260; 72193; 74183; 74330; 76000; 76700; 80053; 81003; 83010; 83615; 83690; 83735; 84484; 85025; 85045; 85610; 86301; 86803; 88177; 93005; 96374; 96375; 99285; A9575; C1726; C1769; C2617; Q9967

== ENCOUNTER → 2023-10-02 10:29 | Outpatient (REF) | payer MEDICARE, OTHER, SELFPAY ==
[2023-10-02 11:00] VITALS: BP 128/66; BP_SYST 58
[2023-10-02] MEDS: ANCEF 10 IV (11:19)
[2023-10-02 12:20] VITALS: BP 109/53; BP_SYST 55
[2023-10-02 12:25] VITALS: BP 106/52; BP_SYST 53
[2023-10-02 12:30] VITALS: BP 109/57; BP_SYST 55
[2023-10-02 12:35] VITALS: BP 103/58; BP_SYST 55
[2023-10-02 12:59] VITALS: BP 103/58
== END ==
LOC: RADI 10:29
PROVIDERS: ATTENDING PHYSICIAN Internal Medicine Hematology & Oncology; FAMILY PHYSICIAN Internal Medicine
DX: C25.0 Malignant neoplasm of head of pancreas (principal); Z79.899 Other long term (current) drug therapy
CPT/HCPCS: 36561; 76937; 77001; 99152; 99153

== ENCOUNTER → 2023-10-05 07:37 | Outpatient (REF) | payer MEDICARE, OTHER, SELFPAY | LOC: RCS 07:37 | PROVIDERS: ATTENDING PHYSICIAN Internal Medicine Cardiovascular Disease; FAMILY PHYSICIAN Internal Medicine; REFERRING PHYSICIAN Internal Medicine Hematology & Oncology | DX: C25.0 Malignant neoplasm of head of pancreas (principal); R94.31 Abnormal electrocardiogram [ECG] [EKG] | CPT/HCPCS: 80053; 85025; 93306; 93356 ==

== ENCOUNTER → 2023-10-20 10:48 | Outpatient (REF) | payer MEDICARE, OTHER, SELFPAY ==
[2023-10-20 11:48] LABS: Hematocrit 37.6 % (37.0-47.0); Hemoglobin 12.4 g/dL (12.0-16.0); Mean Corpuscular Hgb 30.9 pg (27.0-31.0); Mean Corpuscular Volume 93.8 fL (81.0-99.0); Mean Platelet Volume 9.6 fL (7.4-10.4); Nucleated Red Blood Cells % 0 %; Platelet Count 266 10^3/uL (130-400); Red Blood Cell Count 4.01 10^6/uL (4.20-5.40); Red Cell Dist. Width 13.3 % (11.5-14.5); White Blood Cell Count 29.2 10^3/uL (4.8-10.8)
[2023-10-20 12:26] LABS: ALT (SGPT) 23 U/L (0-35); AST (SGOT) 23 U/L (14-36); Albumin 3.8 g/dl (3.5-5.0); Alkaline Phosphatase 173 U/L (38-126); Blood Urea Nitrogen 11 mg/dl (7-17); Calcium 9.6 mg/dl (8.4-10.2); Carbon Dioxide 28 mmol/L (22-30); Chloride 104 mmol/L (98-107); Glucose 92 mg/dl (70-99); Potassium 3.5 mmol/L (3.5-5.1); Sodium 142 mmol/L (135-145); Total Bilirubin 0.4 mg/dl (0.2-1.3); Total Protein 6.8 g/dl (6.3-8.2); eGFR > 60.00
[2023-10-20 13:40] LABS: Absolute Neutrophils -Man Diff 23.6 10^3/uL (1.4-6.5); Band Neutrophils 14 % (0-3); Lymphocytes 13 % (20-51); Monocytes 6 % (2-9); Segmented Neutrophils 67 % (42-75)
[2023-10-20 13:42] LABS: Normal RBC Morphology Yes; Platelets Checked Yes; Total Cells Counted 100
== END ==
LOC: REG 10:48
PROVIDERS: ATTENDING PHYSICIAN Internal Medicine Hematology & Oncology
DX: C25.0 Malignant neoplasm of head of pancreas (principal)
CPT/HCPCS: 36415; 80053; 85025

== ENCOUNTER → 2023-11-03 09:07 | Outpatient (REF) | payer MEDICARE, OTHER, SELFPAY ==
[2023-11-03 10:10] LABS: Hematocrit 37.4 % (37.0-47.0); Hemoglobin 12.2 g/dL (12.0-16.0); Mean Corp Hgb Conc. 32.6 g/dL (33.0-37.0); Mean Corpuscular Hgb 30.7 pg (27.0-31.0); Mean Platelet Volume 10.3 fL (7.4-10.4); Nucleated Red Blood Cells % 0.1 %; Platelet Count 184 10^3/uL (130-400); Red Blood Cell Count 3.98 10^6/uL (4.20-5.40); Red Cell Dist. Width 14.2 % (11.5-14.5); White Blood Cell Count 36.1 10^3/uL (4.8-10.8)
[2023-11-03 10:57] LABS: Absolute Neutrophils -Man Diff 28.8 10^3/uL (1.4-6.5); Band Neutrophils 16 % (0-3); Lymphocytes 15 % (20-51); Monocytes 5 % (2-9); Segmented Neutrophils 64 % (42-75)
[2023-11-03 10:58] LABS: Normal RBC Morphology Yes; Platelets Checked Yes; Total Cells Counted 100
[2023-11-03 12:40] LABS: AST (SGOT) 32 U/L (14-36); Albumin 3.7 g/dl (3.5-5.0); Blood Urea Nitrogen 9 mg/dl (7-17); Calcium 9.3 mg/dl (8.4-10.2); Carbon Dioxide 25 mmol/L (22-30); Glucose 102 mg/dl (70-99); Potassium 3.6 mmol/L (3.5-5.1); Total Bilirubin 0.3 mg/dl (0.2-1.3); Total Protein 6.5 g/dl (6.3-8.2); eGFR > 60.00
[2023-11-03 13:23] LABS: ALT (SGPT) 27 U/L (0-35); Alkaline Phosphatase 214 U/L (38-126); Chloride 105 mmol/L (98-107); Sodium 142 mmol/L (135-145)
== END ==
LOC: REG 09:07
PROVIDERS: ATTENDING PHYSICIAN Internal Medicine Hematology & Oncology; FAMILY PHYSICIAN Internal Medicine
DX: C25.0 Malignant neoplasm of head of pancreas (principal)
CPT/HCPCS: 36415; 80053; 85025

== ENCOUNTER → 2023-11-04 10:45 | Outpatient (REF) | payer MEDICARE, OTHER, SELFPAY ==
[2023-11-05 11:32] LABS: CA 19-9 47 U/mL (<=35)
== END ==
LOC: OIDL 10:45
PROVIDERS: ATTENDING PHYSICIAN Internal Medicine Hematology & Oncology
DX: C25.0 Malignant neoplasm of head of pancreas (principal)
CPT/HCPCS: 86301

== ENCOUNTER → 2023-11-16 14:05 | Outpatient (REF) | payer MEDICARE, OTHER, SELFPAY ==
[2023-11-16 14:33] LABS: Hematocrit 36.5 % (37.0-47.0); Hemoglobin 11.6 g/dL (12.0-16.0); Mean Corp Hgb Conc. 31.8 g/dL (33.0-37.0); Mean Corpuscular Hgb 30.4 pg (27.0-31.0); Mean Corpuscular Volume 95.8 fL (81.0-99.0); Mean Platelet Volume 10.6 fL (7.4-10.4); Platelet Count 141 10^3/uL (130-400); Red Blood Cell Count 3.81 10^6/uL (4.20-5.40); Red Cell Dist. Width 14.6 % (11.5-14.5); White Blood Cell Count 16.7 10^3/uL (4.8-10.8)
[2023-11-16 14:52] LABS: ALT (SGPT) 29 U/L (0-35); AST (SGOT) 27 U/L (14-36); Albumin 3.6 g/dl (3.5-5.0); Alkaline Phosphatase 163 U/L (38-126); Blood Urea Nitrogen 6 mg/dl (7-17); Calcium 9.4 mg/dl (8.4-10.2); Carbon Dioxide 27 mmol/L (22-30); Chloride 107 mmol/L (98-107); Glucose 109 mg/dl (70-99); Potassium 3.2 mmol/L (3.5-5.1); Sodium 142 mmol/L (135-145); Total Bilirubin 0.2 mg/dl (0.2-1.3); Total Protein 6.3 g/dl (6.3-8.2); eGFR > 60.00
[2023-11-16 15:48] LABS: Eosinophils 1 % (0-6); Lymphocytes 16 % (20-51); Monocytes 13 % (2-9); Segmented Neutrophils 59 % (42-75)
[2023-11-16 15:49] LABS: Metamyelocytes 6 % (-); Myelocytes 5 % (-); Normal RBC Morphology Yes; Platelets Checked Yes; Total Cells Counted 100
== END ==
LOC: REG 14:05
PROVIDERS: ATTENDING PHYSICIAN Internal Medicine Hematology & Oncology; FAMILY PHYSICIAN Internal Medicine
DX: C25.0 Malignant neoplasm of head of pancreas (principal)
CPT/HCPCS: 36415; 80053; 85025

== ENCOUNTER → 2023-12-01 09:59 | Outpatient (REF) | payer MEDICARE, OTHER, SELFPAY ==
[2023-12-01 11:02] LABS: % Basophils 0.6 % (0-2); % Eosinophils 0.1 % (0-6); % Immature Granulocytes 7.7 % (0-0.5); % Lymphocytes 14.1 % (20.5-51.1); % Monocytes 13.2 % (1.7-9.3); % Neutrophils 64.3 % (42.2-75.2); Absolute Basophils 0.1 10^3/uL (0-0.2); Absolute Immature Granulocytes 0.8 10^3/uL (0-0.05); Absolute Lymphocytes 1.5 10^3/uL (1.2-3.4); Absolute Monocytes 1.4 10^3/uL (0.1-0.6); Absolute Neutrophils 6.9 10^3/uL (1.4-6.5); Hematocrit 36.1 % (37.0-47.0); Hemoglobin 11.6 g/dL (12.0-16.0); Mean Corp Hgb Conc. 32.1 g/dL (33.0-37.0); Mean Corpuscular Hgb 30.6 pg (27.0-31.0); Mean Corpuscular Volume 95.3 fL (81.0-99.0); Nucleated Red Blood Cells % 0 %; Platelet Count 152 10^3/uL (130-400); Red Blood Cell Count 3.79 10^6/uL (4.20-5.40); Red Cell Dist. Width 14.8 % (11.5-14.5); White Blood Cell Count 10.8 10^3/uL (4.8-10.8)
[2023-12-01 11:25] LABS: ALT (SGPT) 29 U/L (0-35); AST (SGOT) 27 U/L (14-36); Albumin 3.5 g/dl (3.5-5.0); Alkaline Phosphatase 164 U/L (38-126); Blood Urea Nitrogen 8 mg/dl (7-17); Carbon Dioxide 25 mmol/L (22-30); Chloride 104 mmol/L (98-107); Glucose 115 mg/dl (70-99); Potassium 3.3 mmol/L (3.5-5.1); Sodium 139 mmol/L (135-145); Total Bilirubin 0.2 mg/dl (0.2-1.3); eGFR > 60.00
== END ==
LOC: REG 09:59
PROVIDERS: ATTENDING PHYSICIAN Internal Medicine Hematology & Oncology; FAMILY PHYSICIAN Internal Medicine
DX: C25.0 Malignant neoplasm of head of pancreas (principal)
CPT/HCPCS: 36415; 80053; 85025

== ENCOUNTER → 2023-12-02 08:43 | Outpatient (REF) | payer MEDICARE, OTHER, SELFPAY ==
[2023-12-03 20:03] LABS: CA 19-9 27 U/mL (<=35)
== END ==
LOC: OIDL 08:43
PROVIDERS: ATTENDING PHYSICIAN Internal Medicine Hematology & Oncology
DX: C25.0 Malignant neoplasm of head of pancreas (principal)
CPT/HCPCS: 86301

== ENCOUNTER → 2023-12-14 10:59 | Outpatient (REF) | payer MEDICARE, OTHER, SELFPAY ==
[2023-12-14 12:47] LABS: Hemoglobin 11.3 g/dL (12.0-16.0); Mean Corp Hgb Conc. 32.3 g/dL (33.0-37.0); Mean Corpuscular Hgb 30.2 pg (27.0-31.0); Mean Corpuscular Volume 93.6 fL (81.0-99.0); Mean Platelet Volume 11.8 fL (7.4-10.4); Platelet Count 75 10^3/uL (130-400); Red Blood Cell Count 3.74 10^6/uL (4.20-5.40); Red Cell Dist. Width 15.9 % (11.5-14.5); White Blood Cell Count 7.9 10^3/uL (4.8-10.8)
[2023-12-14 13:31] LABS: ALT (SGPT) 28 U/L (0-35); AST (SGOT) 29 U/L (14-36); Absolute Neutrophils -Man Diff 4.6 10^3/uL (1.4-6.5); Albumin 3.4 g/dl (3.5-5.0); Alkaline Phosphatase 164 U/L (38-126); Band Neutrophils 2 % (0-3); Calcium 9.1 mg/dl (8.4-10.2); Carbon Dioxide 26 mmol/L (22-30); Chloride 104 mmol/L (98-107); Glucose 120 mg/dl (70-99); Lymphocytes 24 % (20-51); Metamyelocytes 3 % (-); Monocytes 11 % (2-9); Myelocytes 3 % (-); Normal RBC Morphology Yes; Platelets Checked Yes; Segmented Neutrophils 57 % (42-75); Total Bilirubin 0.3 mg/dl (0.2-1.3); Total Cells Counted 100; Total Protein 5.9 g/dl (6.3-8.2); eGFR > 60.00
[2023-12-14 13:34] LABS: Blood Urea Nitrogen 9 mg/dl (7-17); Sodium 140 mmol/L (135-145)
== END ==
LOC: REG 10:59
PROVIDERS: ATTENDING PHYSICIAN Internal Medicine Hematology & Oncology; FAMILY PHYSICIAN Internal Medicine
DX: C25.0 Malignant neoplasm of head of pancreas (principal)
CPT/HCPCS: 36415; 80053; 85025

== ENCOUNTER → 2023-12-16 08:42 | Outpatient (REF) | payer MEDICARE, OTHER, SELFPAY ==
[2023-12-16 08:48] LABS: % Basophils 0.1 % (0-2); % Eosinophils 0.1 % (0-6); % Immature Granulocytes 9.8 % (0-0.5); % Lymphocytes 11.5 % (20.5-51.1); % Monocytes 11.6 % (1.7-9.3); % Neutrophils 66.9 % (42.2-75.2); Absolute Immature Granulocytes 1.7 10^3/uL (0-0.05); Absolute Neutrophils 11.3 10^3/uL (1.4-6.5); Hematocrit 32.6 % (37.0-47.0); Hemoglobin 10.8 g/dL (12.0-16.0); Mean Corp Hgb Conc. 33.1 g/dL (33.0-37.0); Mean Corpuscular Hgb 31.4 pg (27.0-31.0); Mean Corpuscular Volume 94.8 fL (81.0-99.0); Mean Platelet Volume 10.3 fL (7.4-10.4); Platelet Count 102 10^3/uL (130-400); Red Blood Cell Count 3.44 10^6/uL (4.20-5.40); Red Cell Dist. Width 15.9 % (11.5-14.5)
[2023-12-16 09:51] LABS: ALT (SGPT) 25 U/L (0-35); AST (SGOT) 26 U/L (14-36); Albumin 3.3 g/dl (3.5-5.0); Alkaline Phosphatase 197 U/L (38-126); Blood Urea Nitrogen 7 mg/dl (7-17); Carbon Dioxide 24 mmol/L (22-30); Chloride 105 mmol/L (98-107); Glucose 120 mg/dl (70-99); Potassium 2.6 mmol/L (3.5-5.1); Sodium 140 mmol/L (135-145); Total Bilirubin 0.2 mg/dl (0.2-1.3); Total Protein 5.8 g/dl (6.3-8.2); eGFR > 60.00
== END ==
LOC: OIDL 08:42
PROVIDERS: ATTENDING PHYSICIAN Internal Medicine Hematology & Oncology
DX: C25.0 Malignant neoplasm of head of pancreas (principal); D69.6 Thrombocytopenia, unspecified
CPT/HCPCS: 80053; 85025

== ENCOUNTER → 2023-12-21 10:03 | Outpatient (REF) | payer MEDICARE, OTHER, SELFPAY ==
[2023-12-21 11:40] LABS: ALT (SGPT) 19 U/L (0-35); AST (SGOT) 30 U/L (14-36); Alkaline Phosphatase 197 U/L (38-126); Blood Urea Nitrogen 11 mg/dl (7-17); Calcium 8.6 mg/dl (8.4-10.2); Carbon Dioxide 25 mmol/L (22-30); Chloride 107 mmol/L (98-107); Glucose 106 mg/dl (70-99); Potassium 3.8 mmol/L (3.5-5.1); Sodium 142 mmol/L (135-145); Total Bilirubin 0.3 mg/dl (0.2-1.3); Total Protein 5.6 g/dl (6.3-8.2); eGFR > 60.00
[2023-12-21 13:00] LABS: Hematocrit 32.4 % (37.0-47.0); Hemoglobin 10.5 g/dL (12.0-16.0); Mean Corp Hgb Conc. 32.4 g/dL (33.0-37.0); Mean Corpuscular Hgb 31.3 pg (27.0-31.0); Mean Corpuscular Volume 96.7 fL (81.0-99.0); Platelet Count 133 10^3/uL (130-400); Red Blood Cell Count 3.35 10^6/uL (4.20-5.40); Red Cell Dist. Width 17.3 % (11.5-14.5); White Blood Cell Count 16.7 10^3/uL (4.8-10.8)
[2023-12-22 10:49] LABS: % Basophils 0.5 % (0-2); % Eosinophils 0.1 % (0-6); % Immature Granulocytes 2.5 % (0-0.5); % Lymphocytes 13.4 % (20.5-51.1); % Monocytes 9.3 % (1.7-9.3); % Neutrophils 74.2 % (42.2-75.2); Absolute Basophils 0.1 10^3/uL (0-0.2); Absolute Immature Granulocytes 0.4 10^3/uL (0-0.05); Absolute Lymphocytes 2.3 10^3/uL (1.2-3.4); Absolute Monocytes 1.6 10^3/uL (0.1-0.6); Absolute Neutrophils 12.5 10^3/uL (1.4-6.5); Nucleated Red Blood Cells % 0 %
== END ==
LOC: REG 10:03
PROVIDERS: ATTENDING PHYSICIAN Internal Medicine Hematology & Oncology; FAMILY PHYSICIAN Internal Medicine; REFERRING PHYSICIAN Internal Medicine Gastroenterology
DX: C25.0 Malignant neoplasm of head of pancreas (principal)
CPT/HCPCS: 36415; 80053; 85025; 85027

== ENCOUNTER → 2023-12-28 12:50 | Outpatient (REF) | payer MEDICARE, OTHER, SELFPAY ==
[2023-12-28 13:45] LABS: Hematocrit 32.1 % (37.0-47.0); Hemoglobin 10.6 g/dL (12.0-16.0); Mean Corpuscular Hgb 30.9 pg (27.0-31.0); Mean Corpuscular Volume 93.6 fL (81.0-99.0); Mean Platelet Volume 11.3 fL (7.4-10.4); Platelet Count 108 10^3/uL (130-400); Red Blood Cell Count 3.43 10^6/uL (4.20-5.40); Red Cell Dist. Width 17.2 % (11.5-14.5); White Blood Cell Count 26.6 10^3/uL (4.8-10.8)
[2023-12-28 13:48] LABS: ALT (SGPT) 26 U/L (0-35); AST (SGOT) 29 U/L (14-36); Albumin 3.4 g/dl (3.5-5.0); Alkaline Phosphatase 187 U/L (38-126); Blood Urea Nitrogen 14 mg/dl (7-17); Calcium 8.8 mg/dl (8.4-10.2); Carbon Dioxide 23 mmol/L (22-30); Chloride 107 mmol/L (98-107); Glucose 110 mg/dl (70-99); Potassium 4.3 mmol/L (3.5-5.1); Sodium 138 mmol/L (135-145); Total Bilirubin 0.3 mg/dl (0.2-1.3); Total Protein 6.2 g/dl (6.3-8.2); eGFR > 60.00
[2023-12-28 14:06] LABS: % Basophils 0.6 % (0-2); % Immature Granulocytes 3.8 % (0-0.5); % Lymphocytes 5.3 % (20.5-51.1); % Monocytes 1.6 % (1.7-9.3); % Neutrophils 88.7 % (42.2-75.2); Absolute Basophils 0.2 10^3/uL (0-0.2); Absolute Lymphocytes 1.4 10^3/uL (1.2-3.4); Absolute Monocytes 0.4 10^3/uL (0.1-0.6); Absolute Neutrophils 23.6 10^3/uL (1.4-6.5); Nucleated Red Blood Cells % 0 %
== END ==
LOC: REG 12:50
PROVIDERS: ATTENDING PHYSICIAN Internal Medicine Hematology & Oncology; FAMILY PHYSICIAN Internal Medicine
DX: C25.0 Malignant neoplasm of head of pancreas (principal)
CPT/HCPCS: 36415; 80053; 85025

== ENCOUNTER 2024-01-06 12:02 | Outpatient (RCR) | payer MEDICARE, OTHER, SELFPAY ==
[2024-01-06 12:11] LABS: % Basophils 0.1 % (0-2); % Eosinophils 0.5 % (0-6); % Immature Granulocytes 0.8 % (0-0.5); % Lymphocytes 16.1 % (20.5-51.1); % Neutrophils 68.5 % (42.2-75.2); Absolute Immature Granulocytes 0.1 10^3/uL (0-0.05); Absolute Lymphocytes 1.4 10^3/uL (1.2-3.4); Absolute Monocytes 1.2 10^3/uL (0.1-0.6); Absolute Neutrophils 5.7 10^3/uL (1.4-6.5); Hematocrit 31.5 % (37.0-47.0); Mean Corp Hgb Conc. 31.7 g/dL (33.0-37.0); Mean Corpuscular Hgb 31.3 pg (27.0-31.0); Mean Corpuscular Volume 98.7 fL (81.0-99.0); Platelet Count 95 10^3/uL (130-400); Red Blood Cell Count 3.19 10^6/uL (4.20-5.40); Red Cell Dist. Width 18.5 % (11.5-14.5); White Blood Cell Count 8.4 10^3/uL (4.8-10.8)
== END 2024-01-06 13:48 | disposition home or self-care (01) ==
LOC: OID 12:02
PROVIDERS: ATTENDING PHYSICIAN Internal Medicine Hematology & Oncology
DX: C25.0 Malignant neoplasm of head of pancreas (principal); Z87.891 Personal history of nicotine dependence
CPT/HCPCS: 36415; 85025

== ENCOUNTER → 2024-02-19 13:00 | Outpatient (REF) | payer MEDICARE, OTHER, SELFPAY ==
[2024-02-19 14:46] LABS: Albumin 3.7 g/dl (3.5-5.0); Blood Urea Nitrogen 8 mg/dl (7-17); Calcium 9.6 mg/dl (8.4-10.2); Carbon Dioxide 25 mmol/L (22-30); Chloride 105 mmol/L (98-107); Glucose 88 mg/dl (70-99); Phosphorus 3.6 mg/dl (2.5-4.5); Potassium 3.9 mmol/L (3.5-5.1); Sodium 144 mmol/L (135-145); eGFR > 60.00
== END ==
LOC: REG 13:00
PROVIDERS: ATTENDING PHYSICIAN Internal Medicine
DX: E87.6 Hypokalemia (principal)
CPT/HCPCS: 36415; 80069

== ENCOUNTER → 2024-03-01 12:48 | Outpatient (REF) | payer MEDICARE, OTHER, SELFPAY ==
[2024-03-01 14:24] LABS: Albumin 3.8 g/dl (3.5-5.0); Blood Urea Nitrogen 8 mg/dl (7-17); Calcium 9.5 mg/dl (8.4-10.2); Carbon Dioxide 26 mmol/L (22-30); Chloride 106 mmol/L (98-107); Glucose 100 mg/dl (70-99); Phosphorus 3.7 mg/dl (2.5-4.5); Potassium 4.2 mmol/L (3.5-5.1); Sodium 142 mmol/L (135-145); eGFR > 60.00
== END ==
LOC: REG 12:48
PROVIDERS: ATTENDING PHYSICIAN Internal Medicine
DX: E87.6 Hypokalemia (principal)
CPT/HCPCS: 36415; 80069

== ENCOUNTER → 2024-03-14 14:40 | Outpatient (REF) | payer MEDICARE, OTHER, SELFPAY ==
[2024-03-14 15:33] LABS: Hematocrit 33.9 % (37.0-47.0); Hemoglobin 11.1 g/dL (12.0-16.0); Mean Corp Hgb Conc. 32.7 g/dL (33.0-37.0); Mean Corpuscular Volume 97.7 fL (81.0-99.0); Mean Platelet Volume 10.1 fL (7.4-10.4); Platelet Count 225 10^3/uL (130-400); Red Blood Cell Count 3.47 10^6/uL (4.20-5.40); Red Cell Dist. Width 13.9 % (11.5-14.5); White Blood Cell Count 3.9 10^3/uL (4.8-10.8)
[2024-03-14 15:46] LABS: ALT (SGPT) 26 U/L (0-35); AST (SGOT) 33 U/L (14-36); Albumin 3.8 g/dl (3.5-5.0); Alkaline Phosphatase 87 U/L (38-126); Blood Urea Nitrogen 9 mg/dl (7-17); Calcium 9.2 mg/dl (8.4-10.2); Carbon Dioxide 27 mmol/L (22-30); Chloride 105 mmol/L (98-107); Glucose 126 mg/dl (70-99); Potassium 3.2 mmol/L (3.5-5.1); Sodium 144 mmol/L (135-145); Total Bilirubin 0.4 mg/dl (0.2-1.3); Total Protein 6.9 g/dl (6.3-8.2); eGFR > 60.00
[2024-03-15 10:41] LABS: % Basophils 0.5 % (0-2); % Eosinophils 0.7 % (0-6); % Lymphocytes 36.4 % (20.5-51.1); % Monocytes 11.1 % (1.7-9.3); % Neutrophils 51.3 % (42.2-75.2); Absolute Lymphocytes 1.5 10^3/uL (1.2-3.4); Absolute Monocytes 0.5 10^3/uL (0.1-0.6); Absolute Neutrophils 2.1 10^3/uL (1.4-6.5); Nucleated Red Blood Cells % 0 %
== END ==
LOC: REG 14:40
PROVIDERS: ATTENDING PHYSICIAN Internal Medicine Hematology & Oncology; FAMILY PHYSICIAN Internal Medicine
DX: C25.0 Malignant neoplasm of head of pancreas (principal)
CPT/HCPCS: 36415; 80053; 85025; 85027

== ENCOUNTER → 2024-03-28 11:36 | Outpatient (REF) | payer MEDICARE, OTHER, SELFPAY ==
[2024-03-28 12:47] LABS: Hematocrit 34.8 % (37.0-47.0); Hemoglobin 11.5 g/dL (12.0-16.0); Mean Corpuscular Hgb 31.9 pg (27.0-31.0); Mean Corpuscular Volume 96.7 fL (81.0-99.0); Mean Platelet Volume 11.5 fL (7.4-10.4); Platelet Count 132 10^3/uL (130-400); White Blood Cell Count 11.1 10^3/uL (4.8-10.8)
[2024-03-28 13:33] LABS: Absolute Neutrophils -Man Diff 7.6 10^3/uL (1.4-6.5); Band Neutrophils 18 % (0-3); Lymphocytes 21 % (20-51); Metamyelocytes 1 % (-); Monocytes 8 % (2-9); Myelocytes 1 % (-); Platelets Checked Yes; Segmented Neutrophils 51 % (42-75)
[2024-03-28 13:34] LABS: Acanthocytes FEW; Anisocytosis 1+; Hypochromasia Slight; Normal RBC Morphology No; Ovalocytes 1+; Polychromasia 1+; Total Cells Counted 100
[2024-03-28 13:58] LABS: ALT (SGPT) 32 U/L (0-35); AST (SGOT) 33 U/L (14-36); Albumin 3.9 g/dl (3.5-5.0); Alkaline Phosphatase 149 U/L (38-126); Blood Urea Nitrogen 7 mg/dl (7-17); Calcium 9.7 mg/dl (8.4-10.2); Carbon Dioxide 26 mmol/L (22-30); Chloride 104 mmol/L (98-107); Glucose 97 mg/dl (70-99); Potassium 4.9 mmol/L (3.5-5.1); Sodium 142 mmol/L (135-145); Total Bilirubin 0.3 mg/dl (0.2-1.3); Total Protein 6.8 g/dl (6.3-8.2); eGFR > 60.00
== END ==
LOC: REG 11:36
PROVIDERS: ATTENDING PHYSICIAN Internal Medicine Hematology & Oncology; FAMILY PHYSICIAN Internal Medicine
DX: C25.0 Malignant neoplasm of head of pancreas (principal)
CPT/HCPCS: 36415; 80053; 85025

== ENCOUNTER → 2024-03-30 13:51 | Outpatient (REF) | payer MEDICARE, OTHER, SELFPAY ==
[2024-04-01 09:56] LABS: CA 19-9 15 U/mL (<=35)
== END ==
LOC: OIDL 13:51
PROVIDERS: ATTENDING PHYSICIAN Internal Medicine Hematology & Oncology
DX: C25.0 Malignant neoplasm of head of pancreas (principal)
CPT/HCPCS: 86301

== ENCOUNTER → 2024-04-11 11:33 | Outpatient (REF) | payer MEDICARE, OTHER, SELFPAY ==
[2024-04-11 13:22] LABS: ALT (SGPT) 36 U/L (0-35); AST (SGOT) 26 U/L (14-36); Albumin 3.6 g/dl (3.5-5.0); Alkaline Phosphatase 211 U/L (38-126); Blood Urea Nitrogen 13 mg/dl (7-17); Calcium 9.2 mg/dl (8.4-10.2); Carbon Dioxide 25 mmol/L (22-30); Chloride 103 mmol/L (98-107); Glucose 107 mg/dl (70-99); Potassium 3.1 mmol/L (3.5-5.1); Sodium 142 mmol/L (135-145); Total Bilirubin 0.3 mg/dl (0.2-1.3); Total Protein 6.5 g/dl (6.3-8.2); eGFR > 60.00
[2024-04-11 13:24] LABS: Hematocrit 33.6 % (37.0-47.0); Hemoglobin 11.2 g/dL (12.0-16.0); Mean Corp Hgb Conc. 33.3 g/dL (33.0-37.0); Mean Corpuscular Hgb 32.7 pg (27.0-31.0); Mean Corpuscular Volume 98.2 fL (81.0-99.0); Mean Platelet Volume 11.7 fL (7.4-10.4); Platelet Count 90 10^3/uL (130-400); Red Blood Cell Count 3.42 10^6/uL (4.20-5.40); Red Cell Dist. Width 14.1 % (11.5-14.5); White Blood Cell Count 12.2 10^3/uL (4.8-10.8)
[2024-04-11 13:57] LABS: % Basophils 0.7 % (0-2); % Eosinophils 0.1 % (0-6); % Immature Granulocytes 9.6 % (0-0.5); % Lymphocytes 11.6 % (20.5-51.1); % Monocytes 14.2 % (1.7-9.3); % Neutrophils 63.8 % (42.2-75.2); Absolute Basophils 0.1 10^3/uL (0-0.2); Absolute Immature Granulocytes 1.2 10^3/uL (0-0.05); Absolute Lymphocytes 1.4 10^3/uL (1.2-3.4); Absolute Monocytes 1.7 10^3/uL (0.1-0.6); Absolute Neutrophils 7.8 10^3/uL (1.4-6.5); Nucleated Red Blood Cells % 0 %
== END ==
LOC: REG 11:33
PROVIDERS: ATTENDING PHYSICIAN Internal Medicine Hematology & Oncology; FAMILY PHYSICIAN Internal Medicine
DX: C25.0 Malignant neoplasm of head of pancreas (principal)
CPT/HCPCS: 36415; 80053; 85025

== ENCOUNTER → 2024-04-25 11:41 | Outpatient (REF) | payer MEDICARE, OTHER, SELFPAY ==
[2024-04-25 13:12] LABS: Hematocrit 32.1 % (37.0-47.0); Hemoglobin 10.2 g/dL (12.0-16.0); Mean Corp Hgb Conc. 31.8 g/dL (33.0-37.0); Mean Corpuscular Hgb 31.9 pg (27.0-31.0); Mean Corpuscular Volume 100.3 fL (81.0-99.0); White Blood Cell Count 7.8 10^3/uL (4.8-10.8)
[2024-04-25 13:33] LABS: Absolute Neutrophils -Man Diff 4.9 10^3/uL (1.4-6.5); Band Neutrophils 13 % (0-3); Lymphocytes 19 % (20-51); Mean Platelet Volume 12.3 fL (7.4-10.4); Metamyelocytes 1 % (-); Monocytes 16 % (2-9); Platelet Count 52 10^3/uL (130-400); Segmented Neutrophils 51 % (42-75)
[2024-04-25 13:34] LABS: Anisocytosis 1+; Hypochromasia 1+; Normal RBC Morphology No; Nucleated Red Blood Cells 1 (-); Ovalocytes 1+; Platelets Checked Yes; Polychromasia 1+; Total Cells Counted 100
[2024-04-25 14:19] LABS: ALT (SGPT) 43 U/L (0-35); AST (SGOT) 31 U/L (14-36); Albumin 3.6 g/dl (3.5-5.0); Alkaline Phosphatase 189 U/L (38-126); Blood Urea Nitrogen 11 mg/dl (7-17); Carbon Dioxide 24 mmol/L (22-30); Chloride 107 mmol/L (98-107); Glucose 97 mg/dl (70-99); Potassium 4.4 mmol/L (3.5-5.1); Sodium 143 mmol/L (135-145); Total Bilirubin 0.4 mg/dl (0.2-1.3); Total Protein 6.4 g/dl (6.3-8.2); eGFR > 60.00
== END ==
LOC: REG 11:41
PROVIDERS: ATTENDING PHYSICIAN Internal Medicine Hematology & Oncology; FAMILY PHYSICIAN Internal Medicine
DX: C25.0 Malignant neoplasm of head of pancreas (principal); D69.6 Thrombocytopenia, unspecified; E87.6 Hypokalemia
CPT/HCPCS: 36415; 80053; 85025

== ENCOUNTER → 2024-04-29 11:01 | Outpatient (REF) | payer MEDICARE, OTHER, SELFPAY ==
[2024-04-29 11:57] LABS: Hematocrit 35.3 % (37.0-47.0); Hemoglobin 11.2 g/dL (12.0-16.0); Mean Corp Hgb Conc. 31.7 g/dL (33.0-37.0); Mean Corpuscular Hgb 32.7 pg (27.0-31.0); Mean Corpuscular Volume 102.9 fL (81.0-99.0); Mean Platelet Volume 11.2 fL (7.4-10.4); Platelet Count 109 10^3/uL (130-400); Red Blood Cell Count 3.43 10^6/uL (4.20-5.40); Red Cell Dist. Width 16.2 % (11.5-14.5)
[2024-04-29 12:48] LABS: ALT (SGPT) 32 U/L (0-35); AST (SGOT) 33 U/L (14-36); Albumin 3.6 g/dl (3.5-5.0); Alkaline Phosphatase 206 U/L (38-126); Blood Urea Nitrogen 10 mg/dl (7-17); Calcium 8.7 mg/dl (8.4-10.2); Carbon Dioxide 22 mmol/L (22-30); Chloride 104 mmol/L (98-107); Glucose 126 mg/dl (70-99); Potassium 3.6 mmol/L (3.5-5.1); Sodium 142 mmol/L (135-145); Total Bilirubin 0.4 mg/dl (0.2-1.3); Total Protein 6.6 g/dl (6.3-8.2); eGFR > 60.00
[2024-04-29 12:59] LABS: % Basophils 0.5 % (0-2); % Eosinophils 0.1 % (0-6); % Immature Granulocytes 9.8 % (0-0.5); % Monocytes 10.1 % (1.7-9.3); % Neutrophils 65.5 % (42.2-75.2); Absolute Basophils 0.1 10^3/uL (0-0.2); Absolute Immature Granulocytes 1.5 10^3/uL (0-0.05); Absolute Lymphocytes 2.1 10^3/uL (1.2-3.4); Absolute Monocytes 1.5 10^3/uL (0.1-0.6); Absolute Neutrophils 9.8 10^3/uL (1.4-6.5); Nucleated Red Blood Cells % 0.1 %
== END ==
LOC: REG 11:01
PROVIDERS: ATTENDING PHYSICIAN Internal Medicine Hematology & Oncology
DX: C25.0 Malignant neoplasm of head of pancreas (principal); D69.6 Thrombocytopenia, unspecified; E87.6 Hypokalemia
CPT/HCPCS: 36415; 80053; 85025

== ENCOUNTER → 2024-05-16 09:59 | Outpatient (REF) | payer MEDICARE, OTHER, SELFPAY ==
[2024-05-16 10:50] LABS: % Basophils 0.3 % (0-2); % Eosinophils 0.3 % (0-6); % Immature Granulocytes 1.1 % (0-0.5); % Lymphocytes 17.2 % (20.5-51.1); % Monocytes 11.4 % (1.7-9.3); % Neutrophils 69.7 % (42.2-75.2); Absolute Immature Granulocytes 0.1 10^3/uL (0-0.05); Absolute Lymphocytes 1.1 10^3/uL (1.2-3.4); Absolute Monocytes 0.7 10^3/uL (0.1-0.6); Absolute Neutrophils 4.5 10^3/uL (1.4-6.5); Hematocrit 29.9 % (37.0-47.0); Mean Corp Hgb Conc. 33.4 g/dL (33.0-37.0); Mean Corpuscular Hgb 33.9 pg (27.0-31.0); Mean Corpuscular Volume 101.4 fL (81.0-99.0); Mean Platelet Volume 12.1 fL (7.4-10.4); Nucleated Red Blood Cells % 0 %; Platelet Count 98 10^3/uL (130-400); Red Blood Cell Count 2.95 10^6/uL (4.20-5.40); Red Cell Dist. Width 17.5 % (11.5-14.5); White Blood Cell Count 6.5 10^3/uL (4.8-10.8)
[2024-05-16 11:23] LABS: ALT (SGPT) 38 U/L (0-35); AST (SGOT) 34 U/L (14-36); Albumin 3.3 g/dl (3.5-5.0); Alkaline Phosphatase 199 U/L (38-126); Blood Urea Nitrogen 11 mg/dl (7-17); Calcium 8.6 mg/dl (8.4-10.2); Carbon Dioxide 27 mmol/L (22-30); Chloride 105 mmol/L (98-107); Glucose 95 mg/dl (70-99); Sodium 142 mmol/L (135-145); Total Bilirubin 0.7 mg/dl (0.2-1.3); Total Protein 6.1 g/dl (6.3-8.2); eGFR > 60.00
== END ==
LOC: REG 09:59
PROVIDERS: ATTENDING PHYSICIAN Internal Medicine Hematology & Oncology; FAMILY PHYSICIAN Internal Medicine
DX: C25.0 Malignant neoplasm of head of pancreas (principal); D69.6 Thrombocytopenia, unspecified; E87.6 Hypokalemia
CPT/HCPCS: 36415; 80053; 85025

== ENCOUNTER → 2024-05-27 11:05 | Outpatient (REF) | payer MEDICARE, OTHER, SELFPAY ==
[2024-05-27 12:23] LABS: ALT (SGPT) 40 U/L (0-35); AST (SGOT) 28 U/L (14-36); Albumin 3.5 g/dl (3.5-5.0); Alkaline Phosphatase 188 U/L (38-126); Blood Urea Nitrogen 7 mg/dl (7-17); Carbon Dioxide 23 mmol/L (22-30); Chloride 104 mmol/L (98-107); Glucose 107 mg/dl (70-99); Potassium 3.5 mmol/L (3.5-5.1); Sodium 139 mmol/L (135-145); Total Bilirubin 0.9 mg/dl (0.2-1.3); Total Protein 6.4 g/dl (6.3-8.2); eGFR > 60.00
[2024-05-27 12:26] LABS: Hematocrit 26.7 % (37.0-47.0); Hemoglobin 8.8 g/dL (12.0-16.0); Mean Corpuscular Hgb 34.1 pg (27.0-31.0); Mean Corpuscular Volume 103.5 fL (81.0-99.0); Platelet Count 19 10^3/uL (130-400); Red Blood Cell Count 2.58 10^6/uL (4.20-5.40); Red Cell Dist. Width 16.7 % (11.5-14.5); White Blood Cell Count 2.3 10^3/uL (4.8-10.8)
[2024-05-27 12:38] LABS: Absolute Neutrophils 0.7 10^3/uL (1.4-6.5)
[2024-05-27 12:45] LABS: % Basophils 0.4 % (0-2); % Eosinophils 0.4 % (0-6); % Immature Granulocytes 1.3 % (0-0.5); % Lymphocytes 47.6 % (20.5-51.1); % Monocytes 18.3 % (1.7-9.3); Absolute Lymphocytes 1.1 10^3/uL (1.2-3.4); Absolute Monocytes 0.4 10^3/uL (0.1-0.6); Nucleated Red Blood Cells % 0 %
== END ==
LOC: REG 11:05
PROVIDERS: ATTENDING PHYSICIAN Internal Medicine Hematology & Oncology; FAMILY PHYSICIAN Internal Medicine
DX: C25.0 Malignant neoplasm of head of pancreas (principal); D69.6 Thrombocytopenia, unspecified; E87.6 Hypokalemia
CPT/HCPCS: 36415; 80053; 85025

== ENCOUNTER → 2024-05-30 10:08 | Outpatient (REF) | payer MEDICARE, OTHER, SELFPAY ==
[2024-05-30 11:19] LABS: ALT (SGPT) 30 U/L (0-35); AST (SGOT) 25 U/L (14-36); Albumin 3.3 g/dl (3.5-5.0); Alkaline Phosphatase 184 U/L (38-126); Blood Urea Nitrogen 10 mg/dl (7-17); Calcium 8.7 mg/dl (8.4-10.2); Carbon Dioxide 24 mmol/L (22-30); Chloride 106 mmol/L (98-107); Glucose 124 mg/dl (70-99); Potassium 3.3 mmol/L (3.5-5.1); Sodium 140 mmol/L (135-145); Total Bilirubin 0.6 mg/dl (0.2-1.3); eGFR > 60.00
[2024-05-30 11:25] LABS: Hematocrit 30.4 % (37.0-47.0); Hemoglobin 9.8 g/dL (12.0-16.0); Mean Corp Hgb Conc. 32.2 g/dL (33.0-37.0); Mean Corpuscular Volume 105.6 fL (81.0-99.0); Red Blood Cell Count 2.88 10^6/uL (4.20-5.40); Red Cell Dist. Width 18.5 % (11.5-14.5); White Blood Cell Count 5.6 10^3/uL (4.8-10.8)
[2024-05-30 12:05] LABS: % Basophils 0.7 % (0-2); % Eosinophils 0.2 % (0-6); % Immature Granulocytes 2.3 % (0-0.5); % Lymphocytes 18.8 % (20.5-51.1); % Monocytes 13.9 % (1.7-9.3); % Neutrophils 64.1 % (42.2-75.2); Absolute Immature Granulocytes 0.1 10^3/uL (0-0.05); Absolute Lymphocytes 1.1 10^3/uL (1.2-3.4); Absolute Monocytes 0.8 10^3/uL (0.1-0.6); Absolute Neutrophils 3.6 10^3/uL (1.4-6.5); Mean Platelet Volume 12.8 fL (7.4-10.4); Nucleated Red Blood Cells % 0 %; Platelet Count 42 10^3/uL (130-400)
[2024-06-01] LABS: CA 19-9 14 U/mL (<=35)
== END ==
LOC: REG 10:08
PROVIDERS: ATTENDING PHYSICIAN Internal Medicine Hematology & Oncology; FAMILY PHYSICIAN Internal Medicine
DX: C25.0 Malignant neoplasm of head of pancreas (principal); D69.6 Thrombocytopenia, unspecified; E87.6 Hypokalemia
CPT/HCPCS: 36415; 80053; 85025; 86301

== ENCOUNTER → 2024-06-06 11:36 | Outpatient (REF) | payer MEDICARE, OTHER, SELFPAY ==
[2024-06-06 13:06] LABS: % Basophils 0.3 % (0-2); % Eosinophils 0.1 % (0-6); % Immature Granulocytes 1.3 % (0-0.5); % Lymphocytes 15.6 % (20.5-51.1); % Neutrophils 70.7 % (42.2-75.2); Absolute Immature Granulocytes 0.1 10^3/uL (0-0.05); Absolute Lymphocytes 1.6 10^3/uL (1.2-3.4); Absolute Monocytes 1.2 10^3/uL (0.1-0.6); Absolute Neutrophils 7.3 10^3/uL (1.4-6.5); Hematocrit 30.7 % (37.0-47.0); Hemoglobin 9.7 g/dL (12.0-16.0); Mean Corp Hgb Conc. 31.6 g/dL (33.0-37.0); Mean Corpuscular Hgb 34.2 pg (27.0-31.0); Mean Corpuscular Volume 108.1 fL (81.0-99.0); Mean Platelet Volume 11.6 fL (7.4-10.4); Nucleated Red Blood Cells % 0 %; Platelet Count 106 10^3/uL (130-400); Red Blood Cell Count 2.84 10^6/uL (4.20-5.40); Red Cell Dist. Width 19.4 % (11.5-14.5); White Blood Cell Count 10.3 10^3/uL (4.8-10.8)
[2024-06-06 13:44] LABS: ALT (SGPT) 75 U/L (0-35); AST (SGOT) 95 U/L (14-36); Alkaline Phosphatase 201 U/L (38-126); Blood Urea Nitrogen 13 mg/dl (7-17); Calcium 8.7 mg/dl (8.4-10.2); Carbon Dioxide 23 mmol/L (22-30); Chloride 107 mmol/L (98-107); Glucose 132 mg/dl (70-99); Potassium 4.1 mmol/L (3.5-5.1); Sodium 141 mmol/L (135-145); Total Bilirubin 0.7 mg/dl (0.2-1.3); Total Protein 5.9 g/dl (6.3-8.2); eGFR > 60.00
== END ==
LOC: REG 11:36
PROVIDERS: ATTENDING PHYSICIAN Student in an Organized Health Care Education/Training Program; FAMILY PHYSICIAN Internal Medicine
DX: C25.0 Malignant neoplasm of head of pancreas (principal); D69.6 Thrombocytopenia, unspecified; E87.6 Hypokalemia
CPT/HCPCS: 36415; 80053; 85025

== ENCOUNTER 2024-06-17 14:24 | Emergency (ER) | payer MEDICARE, OTHER, SELFPAY ==
[2024-06-17 14:50] VITALS: BP 121/88
[2024-06-17 15:57] LABS: ALT (SGPT) 70 U/L (0-35); AST (SGOT) 58 U/L (14-36); Alkaline Phosphatase 236 U/L (38-126); Blood Urea Nitrogen 11 mg/dl (7-17); Calcium 8.6 mg/dl (8.4-10.2); Carbon Dioxide 22 mmol/L (22-30); Chloride 106 mmol/L (98-107); Glucose 104 mg/dl (70-99); Potassium 3.9 mmol/L (3.5-5.1); Sodium 137 mmol/L (135-145); Total Bilirubin 1.3 mg/dl (0.2-1.3); eGFR > 60.00
[2024-06-17 16:23] LABS: % Eosinophils 0.2 % (0-6); % Immature Granulocytes 1.2 % (0-0.5); % Lymphocytes 15.5 % (20.5-51.1); % Monocytes 9.1 % (1.7-9.3); Absolute Basophils 0.1 10^3/uL (0-0.2); Absolute Immature Granulocytes 0.1 10^3/uL (0-0.05); Absolute Lymphocytes 0.9 10^3/uL (1.2-3.4); Absolute Monocytes 0.5 10^3/uL (0.1-0.6); Absolute Neutrophils 4.3 10^3/uL (1.4-6.5); Hemoglobin 8.6 g/dL (12.0-16.0); Mean Corp Hgb Conc. 33.1 g/dL (33.0-37.0); Mean Corpuscular Hgb 35.1 pg (27.0-31.0); Mean Corpuscular Volume 106.1 fL (81.0-99.0); Mean Platelet Volume 12.8 fL (7.4-10.4); Nucleated Red Blood Cells % 0 %; Platelet Count 35 10^3/uL (130-400); Red Blood Cell Count 2.45 10^6/uL (4.20-5.40); White Blood Cell Count 5.8 10^3/uL (4.8-10.8)
[2024-06-17 16:28] VITALS: BP 110/77
[2024-06-17 18:19] VITALS: BP 121/60
--- NOTE | 2024-06-17 19:37 | ED.GENMED ---
History of Present Illness
General
Chief Complaint: Abdominal Pain
Source: patient and spouse
Exam Limitations: none
Time Seen by Provider: 06/17/24 19:08
Nursing documentation reviewed up to this point in time: agreed with
History of Present Illness
History of Present Illness:
Patient with history of pancreatic cancer, status post last chemo treatment 1 week ago, presents to ED secondary to gradually worsening abdominal pain associated with lack of bowel movement over the past 3 days. Abdominal pain described as crampy,
around umbilicus, without radiation, without any alleviating or exacerbating factors. Denies fever or chills. Denies trauma. Denies nausea or vomiting. Denies previous history of similar symptoms. Patient has taken pjeg-jva-wzinqra medications,
without improvement in symptoms.
Past History
Social History
Tobacco: Non-smoker
Personal:
Review of Systems
Review of Systems
Allergies reviewed?: Yes
All Other Systems: ROS reviewed and negative except as documented in HPI and ROS
Constitutional: Reports no symptoms; Denies fever or chills
Respiratory: Reports no symptoms
Cardiac: Reports no symptoms
ABD/GI: Reports abdominal pain and constipated; Denies nausea, vomiting or diarrhea
: Reports no symptoms
Musculoskeletal: Reports no symptoms
Skin: Reports no symptoms
Neurological: Reports no symptoms
Phy Exam
Physical Exam
Physical Exam:
Physical Exam
General: no apparent distress, not acutely ill. afebrile
Head: nc/at. eomi
Neck: supple. normal range of motion.
Heart: s1/s2 regular rate and rhythm, no murmur.
Lungs: no acute respiratory distress. clear bilaterally
Abdomen: normal bowel sounds. no distention. mild lower abdominal tenderness to palpation, without guarding
Neuro: alert and oriented. no focal neurological deficits
Skin: no rash
Psychiatric: well kept. interactive and cooperative
Extremities: no edema. no calf tenderness.
Course
Orders/Labs/Results
Orders:
Orders
06/17/24 14:57
CT Abd/pelvis W Iv Cont Urgent
Comment:
Reason For Exam: abdominal pain
06/17/24 15:24
Complete Blood Count/With Diff Urgent
Comprehensive Metabolic Panel Urgent
06/17/24 19:36
0.9% Sodium Chloride 1000 ml [Nss] 1,000 ml IV BOLUS
06/17/24 19:37
Magnesium Citrate [Citroma] 300 ml PO ONCE ONE
06/17/24 21:15
Heparin Pf [Heparin Lock Flush] 500 unit IV PER PROTOCOL
Abnormal Lab Results
06/17/24
15:24
RBC 2.45 L 10^6/uL
(4.20-5.40)
Hgb 8.6 L g/dL
(12.0-16.0)
Hct 26.0 L %
(37.0-47.0)
MCV 106.1 H fL
(81.0-99.0)
MCH 35.1 H pg
(27.0-31.0)
RDW 17.0 H %
(11.5-14.5)
Plt Count 35 L 10^3/uL
(130-400)
MPV 12.8 H fL
(7.4-10.4)
Abs Immat Gran (auto) 0.1 H 10^3/uL
(0-0.05)
Absolute Lymphs (auto) 0.9 L 10^3/uL
(1.2-3.4)
Immature Gran % 1.2 H %
(0-0.5)
Lymphocytes % 15.5 L %
(20.5-51.1)
Creatinine 0.5 L mg/dL
(0.6-1.0)
Glucose 104 H mg/dl
(70-99)
AST 58 H U/L
(14-36)
ALT 70 H U/L
(0-35)
Alkaline Phosphatase 236 H U/L
(38-126)
Total Protein 6.0 L g/dl
(6.3-8.2)
Albumin 3.0 L g/dl
(3.5-5.0)
06/17/24 15:24
06/17/24 15:24
Vital Signs
Initial and Last Documented VS:
Initial Vital Signs
Temp Pulse Resp BP Pulse Ox
97.9 F 79 18 121/88 99
06/17/24 14:50 06/17/24 14:50 06/17/24 14:50 06/17/24 14:50 06/17/24 14:50
Last Documented Vital Signs
Temp Pulse Resp BP Pulse Ox
98.0 F 67 19 119/64 96
06/17/24 16:28 06/17/24 21:10 06/17/24 21:10 06/17/24 21:10 06/17/24 21:10
MDM/Problems Addressed
MDM/Problems Addressed:
Patient with an unremarkable workup in ED, including blood work and CT scan abdomen pelvis. Patient presents symptoms likely secondary to ileus versus nonspecific abdominal discomfort, although CT scan did reveal possible moderate stool burden.
Discussed treatment options with patient and spouse, including enema administration ED. At this time, patient would like to be discharged home and continue [id number]-[id number] regimen, with consideration to return to ED with worsening symptoms. As
such, patient will be given IV fluids prior to discharge, as well as potential return precautions.
*Critical Care Note
Total Time (30-74mins, 75-104mins- exclusive of procedures): Not Applicable
ED Attending Note
-
Portions of this chart may have been created with voice recognition software.� Occasional wrong word or��sound alike� substitutions may have occurred due to the inherent limitations of voice recognition software.
Discharge Plan
Departure
Patient Disposition: Home (Routine Discharge)
Date of Disposition: 06/17/24
Time of Disposition: 20:23
Patient with high blood pressure during this ER visit?: Yes
Condition: Good
Discharge Problem:
Constipation
Instructions: Constipation, Adult (DC)
Prescriptions:
No Action
diltiazem HCl 180 mg capsule,extended release 24hr
180 mg PO DAILY
omeprazole 40 mg capsule,delayed release(DR/EC)
40 mg PO DAILY
aspirin 81 mg Tablet,Delayed Release (Dr/Ec)
81 mg PO DAILY
fluticasone propionate 50 mcg/actuation [place],Suspension
1 spray INTRANASAL DAILY PRN (Reason: allergies)
terazosin 1 mg Capsule
1 mg PO HS
Referrals:
Aramis George, [Family Provider] -
Activity Restrictions/Additional Instructions:
As discussed, please follow-up with your primary care physician and/or oncologist with any further concerns. Please consider return to ED with worsening symptoms.
Interventions
Interventions:
*Risk Screen - Suicide Last Done: 06/17/24 14:50
*General Assessment Last Done: 06/17/24 14:50
ED- Fall Risk Assessment Last Done: 06/17/24 18:19
*ED COVID-19 Vaccine History Last Done: 06/17/24 14:50
*Nursing Disposition Last Done: 06/17/24 21:18
AO-Mplxtc-Kkvigdyifd Assessment Last Done: 06/17/24 18:19
Discharge Date and Time
Discharge Date/Time: 06/17/24 21:19
Print Language: GEORGIAN
[2024-06-17] MEDS: CITROMA 300 ML PO (20:05)
[2024-06-17] MEDS: NSS 1000 IV (20:05)
[2024-06-17 21:10] VITALS: BP 119/64
--- NOTE | 2024-06-17 21:16 | VATNOTE ---
right port deaccessed per protocol with brisk blood return noted prior to.
== END 2024-06-17 21:19 | disposition home or self-care (01) ==
LOC: EMR 14:24
PROVIDERS: Physician Assistant; EMERGENCY PHYSICIAN Emergency Medicine; FAMILY PHYSICIAN Internal Medicine
DX: K59.00 Constipation, unspecified (principal); Z85.07 Personal history of malignant neoplasm of pancreas
CPT/HCPCS: 99284; 96360; 74177; 80053; 85025; Q9967

== ENCOUNTER → 2024-07-04 09:10 | Outpatient (REF) | payer MEDICARE, OTHER, SELFPAY ==
[2024-07-04 09:46] LABS: % Basophils 0.2 % (0-2); % Eosinophils 0.2 % (0-6); % Immature Granulocytes 0.8 % (0-0.5); % Lymphocytes 31.9 % (20.5-51.1); % Monocytes 14.4 % (1.7-9.3); % Neutrophils 52.5 % (42.2-75.2); Absolute Lymphocytes 1.7 10^3/uL (1.2-3.4); Absolute Monocytes 0.8 10^3/uL (0.1-0.6); Absolute Neutrophils 2.8 10^3/uL (1.4-6.5); Hemoglobin 8.7 g/dL (12.0-16.0); Mean Corp Hgb Conc. 33.5 g/dL (33.0-37.0); Mean Corpuscular Hgb 36.9 pg (27.0-31.0); Mean Corpuscular Volume 110.2 fL (81.0-99.0); Mean Platelet Volume 11.9 fL (7.4-10.4); Nucleated Red Blood Cells % 0 %; Platelet Count 98 10^3/uL (130-400); Red Blood Cell Count 2.36 10^6/uL (4.20-5.40); Red Cell Dist. Width 16.4 % (11.5-14.5); White Blood Cell Count 5.3 10^3/uL (4.8-10.8)
[2024-07-04 10:13] LABS: ALT (SGPT) 78 U/L (0-35); AST (SGOT) 63 U/L (14-36); Albumin 2.6 g/dl (3.5-5.0); Alkaline Phosphatase 212 U/L (38-126); Blood Urea Nitrogen 9 mg/dl (7-17); Calcium 8.6 mg/dl (8.4-10.2); Carbon Dioxide 27 mmol/L (22-30); Chloride 108 mmol/L (98-107); Glucose 117 mg/dl (70-99); Potassium 3.8 mmol/L (3.5-5.1); Sodium 141 mmol/L (135-145); Total Bilirubin 0.9 mg/dl (0.2-1.3); Total Protein 6.1 g/dl (6.3-8.2); eGFR > 60.00
== END ==
LOC: REG 09:10
PROVIDERS: ATTENDING PHYSICIAN Internal Medicine Hematology & Oncology; FAMILY PHYSICIAN Internal Medicine
DX: C25.0 Malignant neoplasm of head of pancreas (principal); D69.6 Thrombocytopenia, unspecified; E87.6 Hypokalemia
CPT/HCPCS: 36415; 80053; 85025

== ENCOUNTER 2024-08-04 17:51 | Emergency (ER) | payer MEDICARE, OTHER, SELFPAY ==
[2024-08-04 18:20] VITALS: BP 135/83
--- NOTE | 2024-08-04 18:33 | ED.GENMED ---
ED Provider Triage
<Ysabel Gupta PA-C - Last Filed: 08/04/24 18:40>
-
Patient seen by provider in Triage?: Seen in Triage
69-year-old female with a history of stage II pancreatic cancer, completed chemotherapy on in June and traveled to [place] 2�5 and return on . While down there she developed some swelling in both of her legs. It was mild at the time. He
got significantly worse after the flight home. She has had some pain and tightness in her calfs. She feels a little dyspneic with taking the stairs but she is not really sure if that is really new or just chronic. She is not having any chest
pain. She talked to her doctor and was sent in for evaluation for DVT studies.
A medical screening examination has been initiated by a qualified medical provider. Based on the assessment performed at this time, it has been determined that an emergent medical condition may exist and the patient has been informed that further
medical evaluation and possible additional diagnostic testing may be needed.
HPI: This is a medical evaluation conducted in person to initiate diagnostic evaluation and provide initial therapeutics. Please see further documentation by the treating clinician.
GENERAL: Alert , in no apparent distress
ENT: No visible abnormalities
LUNGS: No acute respiratory distress, not tachypnea, clear lungs edema significant left greater than right bilateral lower extremities
NEUROLOGICAL: Alert and oriented
SKIN: Skin intact. No visible changes.
MUSCULOSKELETAL: Moving extremities normally, edematous
PSYCH: Normal and appropriate interaction.
Bilateral lower extremity edema in the setting of recent travel and cancer history. Will rule out a DVT but with the bilateral nature it is more likely dependent edema, hypoalbuminemia, CHF,
History of Present Illness
<Ysabel Gupta PA-C - Last Filed: 08/04/24 18:40>
General
Chief Complaint: Swelling
Source: patient
Time Seen by Provider: 08/04/24 23:11
<Yolande Pierre DO - Last Filed: 08/05/24 03:00>
History of Present Illness
History of Present Illness:
69-year-old female history of hypertension, pancreatic cancer status post Whipple and chemotherapy completed at the beginning of June 2024 presenting with bilateral lower extremity swelling. Patient states that she is having bilateral foot
swelling for the past few weeks but over the past 1 week has had bilateral lower leg swelling as well. Patient denies chest pain, shortness of breath, or calf pain. Patient states that she recently flew from [place] at the beginning of July.
Patient is not on blood thinners. Patient states that she was seen by her PCP who sent her to the emergency department to rule out DVT. Patient states that she was given a prescription for an echocardiogram outpatient. Patient is not on diuretic,
denies history of CHF
Past History
<Ysabel Gupta PA-C - Last Filed: 08/04/24 18:40>
Social History
Tobacco: Non-smoker
Personal:
Phy Exam
<Yolande Pierre DO - Last Filed: 08/05/24 03:00>
Physical Exam
Physical Exam:
General: Alert, no acute distress
Head: NCAT
Eyes: clear conjunctiva
Neck: supple
Cardiac: regular rate and rhythm, no murmur
Lungs: clear to auscultation bilaterally. No wheezes, rales, or rhonchi. Speaking full unlabored sentences. No respiratory distress.
Abdomen: soft, nondistended nontender. No rebound or guarding.
MSK: lower extremity edema bilaterally to knees. 2+ DP pulses bilaterally. no overlying erythema or rash
Skin: warm, dry
Neuro: Alert and oriented x3. no focal deficits
Course
<Ysabel Gupta PA-C - Last Filed: 08/04/24 18:40>
Orders/Labs/Results
Orders:
Orders
08/04/24 18:30
Venous Doppler Lwr Ext Bilat [US Periph Venous LOWER Ext Lopez] Urgent
Comment:
Reason For Exam: b/l LE swelling, recent travel, cancer
08/04/24 18:31
Electrocardiogram (*1) Urgent
Reason for Study: Other
Other Reason for Exam: edema, sob
EKG- Treatment ONCE
08/04/24 18:39
Complete Blood Count/With Diff Urgent
Comprehensive Metabolic Panel Urgent
NT-proBNP Urgent
08/04/24 23:31
Potassium Chloride [KCl] 40 meq PO NOW STA
Abnormal Lab Results
08/04/24
18:39
WBC 4.4 L 10^3/uL
(4.8-10.8)
RBC 2.62 L 10^6/uL
(4.20-5.40)
Hgb 9.4 L g/dL
(12.0-16.0)
Hct 29.1 L %
(37.0-47.0)
MCV 111.1 H fL
(81.0-99.0)
MCH 35.9 H pg
(27.0-31.0)
MCHC 32.3 L g/dL
(33.0-37.0)
Plt Count 86 L 10^3/uL
(130-400)
MPV 11.5 H fL
(7.4-10.4)
Monocytes % 9.6 H %
(1.7-9.3)
Potassium 3.3 L mmol/L
(3.5-5.1)
Chloride 111 H mmol/L
(98-107)
Glucose 133 H mg/dl
(70-99)
Calcium 8.1 L mg/dl
(8.4-10.2)
AST 63 H U/L
(14-36)
ALT 52 H U/L
(0-35)
Alkaline Phosphatase 140 H U/L
(38-126)
Total Protein 6.0 L g/dl
(6.3-8.2)
Albumin 2.3 L g/dl
(3.5-5.0)
08/04/24 18:39
08/04/24 18:39
Vital Signs
Initial and Last Documented VS:
Initial Vital Signs
Temp Pulse Resp BP Pulse Ox
97.8 F 67 18 135/83 98
08/04/24 18:20 08/04/24 18:20 08/04/24 18:20 08/04/24 18:20 08/04/24 18:20
Last Documented Vital Signs
Temp Pulse Resp BP Pulse Ox
97.8 F 54 17 110/64 96
08/04/24 18:20 08/04/24 23:30 08/04/24 23:30 08/04/24 23:00 08/04/24 23:30
Dreadlt;Yolande Pierre, DO - Last Filed: 08/05/24 03:00>
Orders/Labs/Results
Orders:
Orders
08/04/24 18:30
Venous Doppler Lwr Ext Bilat [US Periph Venous LOWER Ext Lopez] Urgent
Comment:
Reason For Exam: b/l LE swelling, recent travel, cancer
08/04/24 18:31
Electrocardiogram (*1) Urgent
Reason for Study: Other
Other Reason for Exam: edema, sob
EKG- Treatment ONCE
08/04/24 18:39
Complete Blood Count/With Diff Urgent
Comprehensive Metabolic Panel Urgent
NT-proBNP Urgent
08/04/24 23:31
Potassium Chloride [KCl] 40 meq PO NOW STA
Abnormal Lab Results
08/04/24
18:39
WBC 4.4 L 10^3/uL
(4.8-10.8)
RBC 2.62 L 10^6/uL
(4.20-5.40)
Hgb 9.4 L g/dL
(12.0-16.0)
Hct 29.1 L %
(37.0-47.0)
MCV 111.1 H fL
(81.0-99.0)
MCH 35.9 H pg
(27.0-31.0)
MCHC 32.3 L g/dL
(33.0-37.0)
Plt Count 86 L 10^3/uL
(130-400)
MPV 11.5 H fL
(7.4-10.4)
Monocytes % 9.6 H %
(1.7-9.3)
Potassium 3.3 L mmol/L
(3.5-5.1)
Chloride 111 H mmol/L
(98-107)
Glucose 133 H mg/dl
(70-99)
Calcium 8.1 L mg/dl
(8.4-10.2)
AST 63 H U/L
(14-36)
ALT 52 H U/L
(0-35)
Alkaline Phosphatase 140 H U/L
(38-126)
Total Protein 6.0 L g/dl
(6.3-8.2)
Albumin 2.3 L g/dl
(3.5-5.0)
08/04/24 18:39
08/04/24 18:39
Vital Signs
Initial and Last Documented VS:
Initial Vital Signs
Temp Pulse Resp BP Pulse Ox
97.8 F 67 18 135/83 98
08/04/24 18:20 08/04/24 18:20 08/04/24 18:20 08/04/24 18:20 08/04/24 18:20
Last Documented Vital Signs
Temp Pulse Resp BP Pulse Ox
97.8 F 54 17 110/64 96
08/04/24 18:20 08/04/24 23:30 08/04/24 23:30 08/04/24 23:00 08/04/24 23:30
<Yolande Pierre DO - Last Filed: 08/05/24 03:00>
MDM/Problems Addressed
Differential Diagnosis Includes:
DVT, nephrotic syndrome, CHF
MDM/Problems Addressed:
Results reviewed. Creatinine 0.7. Vascular duplex shows no DVT bilaterally. Anemic at 9.4 (previously 8.7 on 07/04/24). Thrombocytopenia at 86 (previously 98 07/04/24). LFTs at baseline. Potassium 3.3 Discussed results with patient at bedside.
Will start on low-dose diuretic. Gave potassium supplementation here in ER. Advised to use compression socks. Advised to get echocardiogram outpatient as PCP ordered. Discussed return precautions including chest pain or shortness of breath.
Stable for discharge with PCP follow-up
<Yolande Pierre DO - Last Filed: 08/05/24 03:00>
*EKG
Interpreted by ED Provider?: Yes (EKG shows sinus bradycardia at 59bpm with LA 150 QTc 435 no acute ischemic changes)
ED Attending Note
<Ysabel Gupta PA-C - Last Filed: 08/04/24 18:40>
-
Portions of this chart may have been created with voice recognition software.� Occasional wrong word or��sound alike� substitutions may have occurred due to the inherent limitations of voice recognition software.
Discharge Plan
Departure
Patient Disposition: Home (Routine Discharge)
Date of Disposition: 08/04/24
Time of Disposition: 23:28
Patient with high blood pressure during this ER visit?: Yes
Discharge Problem:
Swelling of both lower extremities
Instructions: Dependent Edema (DC)
Prescriptions:
New
furosemide [Lasix] 20 mg tablet
20 mg PO DAILY Qty: 5 0RF
No Action
diltiazem HCl 180 mg capsule,extended release 24hr
180 mg PO DAILY
omeprazole 40 mg capsule,delayed release(DR/EC)
40 mg PO DAILY
aspirin 81 mg Tablet,Delayed Release (Dr/Ec)
81 mg PO DAILY
fluticasone propionate 50 mcg/actuation [place],Suspension
1 spray INTRANASAL DAILY PRN (Reason: allergies)
terazosin 1 mg Capsule
1 mg PO HS
Referrals:
Aramis George, [Family Provider] -
Activity Restrictions/Additional Instructions:
Take lasix daily for the next 5 days
Wear compression socks
Complete echocardiogram as ordered by your primary care doctor
Follow up with primary care doctor next week
Return to the emergency department for ches t pain, shortness of breath or new/worsening symptoms
Interventions
Interventions:
*Risk Screen - Suicide Last Done: 08/04/24 22:33
*General Assessment Last Done: 08/04/24 22:33
*Neglect/Abuse Screening Last Done: 08/04/24 22:33
ED- Fall Risk Assessment Last Done: 08/04/24 22:33
*ED COVID-19 Vaccine History Last Done: 08/04/24 18:20
*Nursing Disposition Last Done: 08/04/24 23:46
ED- Cardiac Assessment Last Done: 08/04/24 22:37
ED- Pulmonary Assessment Last Done: 08/04/24 22:37
ED-Skin Assessment Last Done: 08/04/24 22:37
Discharge Date and Time
Discharge Date/Time: 08/04/24 23:46
Print Language: SLOVENIAN
[2024-08-04 19:01] LABS: ALT (SGPT) 52 U/L (0-35); AST (SGOT) 63 U/L (14-36); Albumin 2.3 g/dl (3.5-5.0); Alkaline Phosphatase 140 U/L (38-126); Blood Urea Nitrogen 10 mg/dl (7-17); Calcium 8.1 mg/dl (8.4-10.2); Carbon Dioxide 23 mmol/L (22-30); Chloride 111 mmol/L (98-107); Glucose 133 mg/dl (70-99); Potassium 3.3 mmol/L (3.5-5.1); Sodium 140 mmol/L (135-145); eGFR > 60.00
[2024-08-04 19:02] LABS: Hematocrit 29.1 % (37.0-47.0); Hemoglobin 9.4 g/dL (12.0-16.0); Mean Corp Hgb Conc. 32.3 g/dL (33.0-37.0); Mean Corpuscular Hgb 35.9 pg (27.0-31.0); Mean Corpuscular Volume 111.1 fL (81.0-99.0); Mean Platelet Volume 11.5 fL (7.4-10.4); Platelet Count 86 10^3/uL (130-400); Red Blood Cell Count 2.62 10^6/uL (4.20-5.40); Red Cell Dist. Width 13.5 % (11.5-14.5); White Blood Cell Count 4.4 10^3/uL (4.8-10.8)
[2024-08-04 19:10] LABS: NT-proBNP 640 pg/ml
[2024-08-04 19:43] LABS: % Basophils 0.5 % (0-2); % Eosinophils 1.4 % (0-6); % Immature Granulocytes 0.2 % (0-0.5); % Lymphocytes 38.9 % (20.5-51.1); % Monocytes 9.6 % (1.7-9.3); % Neutrophils 49.4 % (42.2-75.2); Absolute Eosinophils 0.1 10^3/uL (0-0.7); Absolute Lymphocytes 1.7 10^3/uL (1.2-3.4); Absolute Monocytes 0.4 10^3/uL (0.1-0.6); Absolute Neutrophils 2.2 10^3/uL (1.4-6.5); Nucleated Red Blood Cells % 0 %
[2024-08-04 22:31] VITALS: BP 114/54
[2024-08-04 22:33] VITALS: BMI 26.1
[2024-08-04 23:00] VITALS: BP 110/64
[2024-08-04] MEDS: KCL 40 MEQ PO (23:42)
== END 2024-08-04 23:46 | disposition home or self-care (01) ==
LOC: EMR 17:51
PROVIDERS: Physician Assistant; EMERGENCY PHYSICIAN Emergency Medicine; FAMILY PHYSICIAN Internal Medicine
DX: R22.43 Localized swelling, mass and lump, lower limb, bilateral (principal); I10 Essential (primary) hypertension; Z90.49 Acquired absence of other specified parts of digestive tract
CPT/HCPCS: 99284; 80053; 83880; 85025; 93005; 93970

== ENCOUNTER → 2024-08-24 11:17 | Outpatient (REF) | payer MEDICARE, OTHER, SELFPAY ==
[2024-08-24 14:51] LABS: Hematocrit 28.9 % (37.0-47.0); Hemoglobin 9.6 g/dL (12.0-16.0); Mean Corp Hgb Conc. 33.2 g/dL (33.0-37.0); Mean Corpuscular Hgb 35.8 pg (27.0-31.0); Mean Corpuscular Volume 107.8 fL (81.0-99.0); Mean Platelet Volume 11.8 fL (7.4-10.4); Platelet Count 130 10^3/uL (130-400); Red Blood Cell Count 2.68 10^6/uL (4.20-5.40); White Blood Cell Count 4.9 10^3/uL (4.8-10.8)
[2024-08-24 15:52] LABS: ALT (SGPT) 59 U/L (0-35); AST (SGOT) 85 U/L (14-36); Albumin 2.1 g/dl (3.5-5.0); Alkaline Phosphatase 153 U/L (38-126); Blood Urea Nitrogen 14 mg/dl (7-17); Carbon Dioxide 25 mmol/L (22-30); Chloride 111 mmol/L (98-107); Creatine Phosphokinase 42 U/L (30-135); Glucose 124 mg/dl (70-99); Iron 99 ug/dl (37-170); Magnesium 2.1 mg/dl (1.6-2.3); Potassium 3.5 mmol/L (3.5-5.1); Sodium 140 mmol/L (135-145); Total Bilirubin 1.7 mg/dl (0.2-1.3); Total Protein 6.6 g/dl (6.3-8.2); eGFR > 60.00
[2024-08-24 15:54] LABS: % Basophils 0.4 % (0-2); % Eosinophils 0.2 % (0-6); % Immature Granulocytes 0.2 % (0-0.5); % Lymphocytes 38.9 % (20.5-51.1); % Monocytes 10.6 % (1.7-9.3); % Neutrophils 49.7 % (42.2-75.2); Absolute Lymphocytes 1.9 10^3/uL (1.2-3.4); Absolute Monocytes 0.5 10^3/uL (0.1-0.6); Absolute Neutrophils 2.4 10^3/uL (1.4-6.5); Nucleated Red Blood Cells % 0 %
[2024-08-24 16:01] LABS: Percent Saturation 80 % (20-50); Total Iron Binding Capacity 123 ug/dl (265-497)
[2024-08-24 16:07] LABS: Free T4 1.97 ng/dl (0.78-2.19)
[2024-08-24 16:21] LABS: TSH 2.21 uIU/ml (0.47-4.68)
[2024-08-24 16:40] LABS: Vitamin B12 931 pg/ml (239-931)
[2024-08-24 17:20] LABS: Reticulocyte Count 2.1 % (0.4-2.8)
== END ==
LOC: REG 11:17
PROVIDERS: ATTENDING PHYSICIAN Internal Medicine; OTHER PHYSICIAN Internal Medicine Cardiovascular Disease; OTHER PHYSICIAN Internal Medicine Hematology & Oncology
DX: D64.9 Anemia, unspecified (principal); E41 Nutritional marasmus; R53.83 Other fatigue; I51.9 Heart disease, unspecified; R14.0 Abdominal distension (gaseous); R09.89 Other specified symptoms and signs involving the circulatory and respiratory systems
CPT/HCPCS: 36415; 71046; 74019; 80053; 82550; 82607; 83540; 83550; 83735; 84439; 84443; 85025; 85045

== ENCOUNTER 2024-08-25 17:59 | Inpatient (IN) | payer MEDICARE, OTHER, SELFPAY ==
[2024-08-25] VITALS (7 sets, daily range): BP systolic 110–141; BP diastolic 67–95; BMI 26.4; BMI 25.0
--- NOTE | 2024-08-25 13:00 | ED.GENMED ---
History of Present Illness
<Ja Matamoros PA-C - Last Filed: 08/25/24 16:28>
General
Chief Complaint: Abdominal Symptoms
Source: patient
Exam Limitations: none
Time Seen by Provider: 08/25/24 12:22
History of Present Illness
History of Present Illness:
69-year-old female with known history of pancreatic cancer status post Whipple and recently finished course of chemotherapy in June presents with increased leg swelling and abdominal distention. She had outpatient blood work performed yesterday
as well as an x-ray of her chest. She had an x-ray of her abdomen which demonstrated possible bowel obstruction and was sent here to rule out bowel obstruction. She also was supposed to receive an echocardiogram today as an outpatient due to the
leg swelling and effusions noted on the x-ray from yesterday. She notes abdominal distention of some discomfort as well as complete lack of appetite.
Past History
<Ja Matamoros PA-C - Last Filed: 08/25/24 16:28>
Social History
Tobacco: Non-smoker
Personal:
Phy Exam
<Ja Matamoros PA-C - Last Filed: 08/25/24 16:28>
Physical Exam
Physical Exam:
General: Well developed female in no acute respiratory distress
HEENT: Normocephalic atraumatic
Heart: Regular rate and rhythm
Lungs: Subtle Rales at the bases
Extremities: No cyanosis but significant edema bilateral lower extremities
Abdomen is distended mildly diffusely tender no guarding or rebound no peritoneal signs
Course
<Ja Matamoros PA-C - Last Filed: 08/25/24 16:28>
Orders/Labs/Results
Orders:
Orders
08/25/24 12:37
CT Abd/pelvis W Iv Cont Urgent
Comment:
Reason For Exam: abdominal distention/pain
08/25/24 12:49
Echo 2D M-mode Dop w Strain Routine
Reason for Exam: swelling
08/25/24 13:01
NT-proBNP Urgent
08/25/24 14:51
Add On- LAB Urgent
Tests Added?: lipase
08/25/24 15:19
Heparin Sodium,Porcine/Pf [Heparin Flush Pres. Free 2 ml] 2 unit IV Q4HPRN PRN
08/25/24 15:26
CMP [Comprehensive Metabolic Panel] Urgent
Complete Blood Count/With Diff Urgent
Lipase Routine
Abnormal Lab Results
08/25/24
15:26
RBC 2.36 L 10^6/uL
(4.20-5.40)
Hgb 8.3 L g/dL
(12.0-16.0)
Hct 24.1 L %
(37.0-47.0)
MCV 102.1 H fL
(81.0-99.0)
MCH 35.2 H pg
(27.0-31.0)
RDW 14.8 H %
(11.5-14.5)
Plt Count 107 L 10^3/uL
(130-400)
MPV 11.1 H fL
(7.4-10.4)
Monocytes % 10.2 H %
(1.7-9.3)
Potassium 3.3 L mmol/L
(3.5-5.1)
Chloride 109 H mmol/L
(98-107)
Calcium 7.6 L mg/dl
(8.4-10.2)
Total Bilirubin 1.8 H mg/dl
(0.2-1.3)
AST 79 H U/L
(14-36)
ALT 53 H U/L
(0-35)
Alkaline Phosphatase 143 H U/L
(38-126)
Total Protein 6.2 L g/dl
(6.3-8.2)
Albumin 1.9 L g/dl
(3.5-5.0)
Lipase 17 L U/L
(23-300)
08/25/24 15:26
08/25/24 15:26
Vital Signs
Initial and Last Documented VS:
Initial Vital Signs
Temp Pulse Resp BP Pulse Ox
98.3 F 108 18 138/95 98
08/25/24 12:11 08/25/24 12:11 08/25/24 12:11 08/25/24 12:11 08/25/24 12:11
Last Documented Vital Signs
Temp Pulse Resp BP Pulse Ox
98.3 F 57 25 122/67 94
08/25/24 12:11 08/25/24 15:45 08/25/24 15:45 08/25/24 13:00 08/25/24 15:45
<Jamari Paulino, DO - Last Filed: 08/25/24 16:06>
Orders/Labs/Results
Orders:
Orders
08/25/24 12:37
CT Abd/pelvis W Iv Cont Urgent
Comment:
Reason For Exam: abdominal distention/pain
08/25/24 12:49
Echo 2D M-mode Dop w Strain Routine
Reason for Exam: swelling
08/25/24 13:01
NT-proBNP Urgent
08/25/24 14:51
Add On- LAB Urgent
Tests Added?: lipase
08/25/24 15:19
Heparin Sodium,Porcine/Pf [Heparin Flush Pres. Free 2 ml] 2 unit IV Q4HPRN PRN
08/25/24 15:26
CMP [Comprehensive Metabolic Panel] Urgent
Complete Blood Count/With Diff Urgent
Lipase Routine
Abnormal Lab Results
08/25/24
15:26
RBC 2.36 L 10^6/uL
(4.20-5.40)
Hgb 8.3 L g/dL
(12.0-16.0)
Hct 24.1 L %
(37.0-47.0)
MCV 102.1 H fL
(81.0-99.0)
MCH 35.2 H pg
(27.0-31.0)
RDW 14.8 H %
(11.5-14.5)
Plt Count 107 L 10^3/uL
(130-400)
MPV 11.1 H fL
(7.4-10.4)
Monocytes % 10.2 H %
(1.7-9.3)
Potassium 3.3 L mmol/L
(3.5-5.1)
Chloride 109 H mmol/L
(98-107)
Calcium 7.6 L mg/dl
(8.4-10.2)
Total Bilirubin 1.8 H mg/dl
(0.2-1.3)
AST 79 H U/L
(14-36)
ALT 53 H U/L
(0-35)
Alkaline Phosphatase 143 H U/L
(38-126)
Total Protein 6.2 L g/dl
(6.3-8.2)
Albumin 1.9 L g/dl
(3.5-5.0)
Lipase 17 L U/L
(23-300)
08/25/24 15:26
08/25/24 15:26
Vital Signs
Initial and Last Documented VS:
Initial Vital Signs
Temp Pulse Resp BP Pulse Ox
98.3 F 108 18 138/95 98
08/25/24 12:11 08/25/24 12:11 08/25/24 12:11 08/25/24 12:11 08/25/24 12:11
Last Documented Vital Signs
Temp Pulse Resp BP Pulse Ox
98.3 F 57 25 122/67 94
08/25/24 12:11 08/25/24 15:45 08/25/24 15:45 08/25/24 13:00 08/25/24 15:45
<Ja Matamoros PA-C - Last Filed: 08/25/24 16:28>
MDM/Problems Addressed
Differential Diagnosis Includes:
Patient sent in by family doctor to evaluate for bowel obstruction and CT scan was requested. CT scan with IV contrast ordered. Port accessed. I reviewed blood work from yesterday which showed normal renal function. BNP was added for today given
fluid retention.
CT is pending. I spoke with echo department will rearrange the echo from the emergency room visit.
<Ja Matamoros PA-C - Last Filed: 08/25/24 16:28>
*Critical Care Note
Total Time (30-74mins, 75-104mins- exclusive of procedures): Not Applicable
<Ja Matamoros PA-C - Last Filed: 08/25/24 16:28>
Update Note
Update Note:
CT shows moderate to large amount of ascites. This is new. Patient is quite symptomatic from it very anorexic and uncomfortable. Discussed with emergency room attending saw the patient as well. Notified oncology. Will keep patient in hospital
for further treatment and workup potentially interventional radiology drainage of the ascites.
ED Attending Note
<Ja Matamoros PA-C - Last Filed: 08/25/24 16:28>
-
Portions of this chart may have been created with voice recognition software.� Occasional wrong word or��sound alike� substitutions may have occurred due to the inherent limitations of voice recognition software.
<Jamari Paulino DO - Last Filed: 08/25/24 16:06>
ED Attending Note
Patient seen and examined by attending physician: Yes
I performed the substantive portion of visit, reviewed & personally made and approve the management plan that is documented in note by myself or SHEN.: Yes
ED Attending Note:
I evaluated patient at bedside. The patient has new rather significant amount of ascites on CT imaging today. There is no evidence of bowel obstruction. She has been doing rather poorly as an outpatient. Planning on admission to the hospital.
Considering IR drainage for diagnosis and therapeutic reasons.
Discharge Plan
Departure
Patient Disposition: Admit
Date of Disposition: 08/25/24
Time of Disposition: 16:27
Presentation/result/management discussed w/ accepting MD/DO: Hospitalist
Discharge Problem:
Ascites
Prescriptions:
No Action
diltiazem HCl 180 mg capsule,extended release 24hr
180 mg PO DAILY
omeprazole 40 mg capsule,delayed release(DR/EC)
40 mg PO DAILY
aspirin 81 mg Tablet,Delayed Release (Dr/Ec)
81 mg PO DAILY
fluticasone propionate 50 mcg/actuation [place],Suspension
1 spray INTRANASAL DAILY PRN (Reason: allergies)
terazosin 1 mg Capsule
1 mg PO HS
furosemide [Lasix] 20 mg tablet
20 mg PO DAILY Qty: 5 0RF
Referrals:
Aramis George DO [Family Provider] -
Interventions
Interventions:
*Risk Screen - Suicide Last Done: 08/25/24 12:11
*General Assessment Last Done: 08/25/24 12:45
*Neglect/Abuse Screening Last Done: 08/25/24 12:11
*ED- Fall Risk Assessment Last Done: 08/25/24 12:45
*ED COVID-19 Vaccine History Last Done: 08/25/24 12:45
KF-Qpxhbe-Smvgcqvima Assessment Last Done: 08/25/24 12:45
Discharge Date and Time
Print Language: TRINIDADIAN
[2024-08-25 13:33] LABS: NT-proBNP 483 pg/ml
[2024-08-25 15:55] LABS: Hematocrit 24.1 % (37.0-47.0); Hemoglobin 8.3 g/dL (12.0-16.0); Mean Corp Hgb Conc. 34.4 g/dL (33.0-37.0); Mean Corpuscular Hgb 35.2 pg (27.0-31.0); Mean Corpuscular Volume 102.1 fL (81.0-99.0); Mean Platelet Volume 11.1 fL (7.4-10.4); Platelet Count 107 10^3/uL (130-400); Red Blood Cell Count 2.36 10^6/uL (4.20-5.40); Red Cell Dist. Width 14.8 % (11.5-14.5); White Blood Cell Count 5.7 10^3/uL (4.8-10.8)
[2024-08-25 16:05] LABS: ALT (SGPT) 53 U/L (0-35); AST (SGOT) 79 U/L (14-36); Albumin 1.9 g/dl (3.5-5.0); Alkaline Phosphatase 143 U/L (38-126); Blood Urea Nitrogen 10 mg/dl (7-17); Calcium 7.6 mg/dl (8.4-10.2); Carbon Dioxide 25 mmol/L (22-30); Chloride 109 mmol/L (98-107); Estimated Creatinine Clearance 67 ml/min; Glucose 88 mg/dl (70-99); Lipase 17 U/L (23-300); Potassium 3.3 mmol/L (3.5-5.1); Sodium 138 mmol/L (135-145); Total Bilirubin 1.8 mg/dl (0.2-1.3); Total Protein 6.2 g/dl (6.3-8.2); eGFR > 60.00
[2024-08-25 16:14] LABS: % Basophils 0.2 % (0-2); % Eosinophils 1.8 % (0-6); % Immature Granulocytes 0.4 % (0-0.5); % Lymphocytes 37.6 % (20.5-51.1); % Monocytes 10.2 % (1.7-9.3); % Neutrophils 49.8 % (42.2-75.2); Absolute Eosinophils 0.1 10^3/uL (0-0.7); Absolute Lymphocytes 2.1 10^3/uL (1.2-3.4); Absolute Monocytes 0.6 10^3/uL (0.1-0.6); Absolute Neutrophils 2.8 10^3/uL (1.4-6.5); Nucleated Red Blood Cells % 0 %
--- NOTE | 2024-08-25 17:15 | HPS.HSE ---
Family Physician
-
Family Physician: Aramis George
Chief Complaint
-
abdominal distension/pain, leg swelling
History of Present Illness
69-year-old female with PMH of pancreatic cancer s/p Whipple (Jan 2024) and chemo (last Jun 2024), htn who presents to ED for abdominal distention/pain and leg swelling. She says her leg swelling has been going on for about 2 weeks, and she was
previously seen in the ED for this: 5 days of Lasix helped slightly, and she just restarted Lasix yesterday per PCP. Her abdominal distention started about 1 week ago, along with intermittent abdominal pain, feeling bloated/full, and poor oral
intake. Symptoms not improved or worsened significantly. After a week without improvement, she saw her PCP who ordered chest and abdominal x-rays, which showed pleural effusion and possible bowel obstruction, so she was sent to ED for further
evaluation. She denies nausea, vomiting, diarrhea, constipation, black or bloody stools. (She reports occasional loose stools, most recently 10 days ago, which has been her baseline since chemo.) Her last BM was this morning. She has no
pain/difficulty/choking with swallowing. She reports mild exertional dyspnea, chest pain with deep inspiration.
She follows with Dr. Jarrett for oncology, and had an appointment most recently in July. She reports plan is to monitor with scans for recurrence; however, if there were to be recurrence she says she is not interested in additional
chemotherapy or surgery.
Medical History
Past Medical History
Past Medical History: Reports Cancer (Pancreatic (dx Sep 2023; s/p whipple/chemo)), GERD, HTN and Other (Osteopenia, arthritis); Denies CHF
Past Surgical History: Reports , Gynocological (Oophorectomy), Orthopedic (L knee replacement/revision) and Other (R breast lumpectomy)
Social History
Tobacco: Former Smoker (Quit in )
Alcohol: Occasional (~1x/week)
Drug: None
Personal:
Living: With Family
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
Family History
Family History: Cancer (Father with lung and esophageal cancer, brother with lung cancer, paternal grandmother with pancreatic cancer)
Allergies / Home Medications
Allergies reflects when Allergies were last updated in [facility].
Home Medications with original date entered in [facility]
Allergy/Medication List:
Allergies
Allergy/AdvReac Type Severity Reaction Status Date / Time
casein Allergy MILK Verified 08/25/24 12:13
PROTEIN-SINUS
INFECTIONS
AND
MIGRAINES
gluten [Gluten] Allergy sinus Verified 08/25/24 12:13
infection;headache
oxycodone Allergy hallucinati Verified 08/25/24 12:13
ons
Sulfa (Sulfonamide Allergy itchy Verified 08/25/24 12:13
Antibiotics) rash,jaundice
[Sulfa (Sulfonamides)]
Home Medications
omeprazole 40 mg capsule,delayed release 40 mg PO DAILY Gastrointestinal Issue 09/13/23
furosemide 20 mg tablet (Lasix) 20 mg PO DAILY
diltiazem HCl 120 mg capsule,extended release 24 hr 120 mg PO DAILY 08/25/24
hydrocortisone 2.5 % topical cream 1 applic topical DAILYPRN PRN hemorrhoids 08/25/24
potassium chloride 20 mEq tablet,extended release(part/cryst) 20 meq PO DAILY 08/25/24
psyllium husk 3.4 gram/5.4 gram oral powder (Metamucil) 1 tsp PO DAILY 08/25/24
therapeutic multivitamin 1 tab PO Q48H 08/25/24
Review of Systems
-
History Source: Patient
A 12 point ROS was completed and negative except as noted: Yes
Constitutional: Reports Weight Loss and Fatigue; Denies Fever or Chills
EENT: Reports Sore Throat (Patient attributes to GERD)
Respiratory: Reports Trouble Breathing (Exertional dyspnea) and Other (Chest pain with deep inspiration); Denies Cough or Hemoptysis
Cardiac: Reports No Symptoms; Denies Diaphoresis, Palpitations or Syncope
Abdomen/GI: Reports Abdominal Pain, Anorexia and Other (Bloating, distention); Denies Nausea, Vomiting, Diarrhea, Constipated, Bloody Stools or Black Stools
: Reports No Symptoms; Denies Dysuria, Frequency or Difficulty Voiding
Musculoskeletal: Reports Edema (Bilateral lower extremities); Denies Joint Pain, Joint Swelling, Muscle Pain or Muscle Stiffness
Skin: Reports No Symptoms
Neurological: Reports Weakness; Denies Dizzy
Endocrine: Reports No Symptoms
Hematologic/Lymphatic: Reports No Symptoms
Psych: Reports No Symptoms
Physical Exam
Vital Signs
Vital Signs
Temp Pulse Resp BP Pulse Ox
98.3 F 67 19 122/67 95
08/25/24 12:11 08/25/24 17:30 08/25/24 17:30 08/25/24 13:00 08/25/24 17:30
Physical Exam
General: No Apparent Distress, Comfortable, Conversant and Appears Chronically Ill; No Fever, Chills or Sweats
HEENT: NormoCephalic, Anicteric, Atraumatic and PERRLA; No Oxygen
Respiratory: Crackles (At bases bilateral) and Non Labored Respirations
Cardiac: S1/S2, Regular Rhythm and Peripheral Edema (Bilateral lower extremities); No Calf Tenderness
GI: Normal Bowel Sounds, Tender (Epigastric/RUQ) and Distended
Musculoskeletal: Edema, Left Lower Extremity, Edema, Right Lower Extremity and Other (Bilateral lower extremities with +2 pitting edema, symmetric)
Skin: Warm and Dry
Neuro: Awake, Alert, Oriented and Nonfocal/grossly intact
Psych: Calm and Intact Judgment/Insight
Laboratory Results
-
08/25/24 15:26
08/25/24 15:26
Laboratory Results
Total Bilirubin 1.8 mg/dl (0.2-1.3) H 03/20/25 15:26
AST 79 U/L (14-36) H 08/25/24 15:26
ALT 53 U/L (0-35) H 08/25/24 15:26
Alkaline Phosphatase 143 U/L (38-126) H 08/25/24 15:26
Lipase 17 U/L (23-300) L 08/25/24 15:26
Data Reviewed
-
Diagnostic Radiology: Image Personally Visualized and interpreted and Report Reviewed by me
CT Scan: Image Personally Visualized and interpreted and Report Reviewed by me
Medical Tests (Nuc Med, Echo, EKG etc): Report Reviewed by me
Lab Data: Labs Reviewed by me
Impression/Plan
-
69-year-old female with PMH of pancreatic cancer s/p Whipple (Jan 2024) and chemo (last Jun 2024), htn who presents to ED for 1 week of abdominal distention/pain/poor oral intake and 2 weeks of leg swelling. Outpatient chest/abd x-rays showed
pleural effusion and possible bowel obstruction, PCP sent her to ED for further evaluation. Also reports mild exertional dyspnea, chest pain with deep inspiration.
New ascites and abdominal pain
Elevated LFTs elevated LFTs, chronic
History of pancreatic cancer s/p whipple (01/2024)/chemo (06/2024)
- Abd/pelvis CT on admission showed large amount of ascites; no signs of pneumoperitoneum, abscess, bowel obstruction. Anasarca. Bilateral pleural effusions.
- Afebrile, no leukocytosis, minimal abdominal tenderness on exam. Not highly suspicious for SBP. Will not begin antibiotics at this time.
- Concern for malignant ascites.
- Follows with Dr. Jarrett; oncology consulted.
- Consult IR for therapeutic/diagnostic paracentesis. Fluid culture, cell count, cytology, albumin.
- Pain control with as needed Dilaudid. Avoid Tylenol at this time while trending LFTs.
Bilateral lower extremity edema
- Echo 08/25/24: normal LV size/function, EF 69%. Mild Ao stenosis compared to prior echo 09/2023.
- BNP 483 (paz zone) on admission
- Do not suspect heart failure
- Continue lasix, LE elevation
Hypokalemia
- Suspect this is related to lasix and poor oral intake
- Continue daily PO K, and supplement prn. Follow BMP.
GERD- continue protonix
HTN- Continue home diltiazem 120mg qD
Anemia of chronic disease- Hgb 8.3 on admission (baseline appears to be 8-10), no signs of acute/chronic bleeding.
Osteopenia
Arthritis
Code status: DNR
Has advanced directive at home; instructed to bring copy to hospital to scan into chart
If she were to need medical decision maker, it would Phong
VTE ppx: Lovenox
Diet: Regular
Dispo planning: Pending clinical course, PT/OT evaluation
--- NOTE | 2024-08-25 17:49 | W.PN.UPDATE ---
Update Note
Progress Note Update
I personally performed a history and physical exam of the patient and discussed management with the resident. I reviewed the resident's note and agree with the documented findings and plan of care HPI/CC.
69-year-old female presented with abdominal distention and pain.
122/67, 67, 19, 98.3 F, 95% RA
Gen: NAD, AAOx3, appears chronically ill and malnourished.
Eyes: EOMI, PERRLA, no scleral icterus.
Neck: supple.
CV: RRR, +S1/S2, no m/r/g.
Resp: CTAB, no rales, wheezes, or rhonchi.
Abd: +BS, soft, NT, moderately distended with ascites
Skin: No rashes.
Neuro: CN 2-12 intact, non-focal.
Psych: Normal mood and affect.
CT A/P: Small to moderate bilateral pleural effusions. Adjacent parenchymal consolidation, likely atelectasis. Progressive severe diffuse diminished hepatic parenchymal attenuation. Most likely severe hepatic fatty infiltration. Prior Whipple
procedure. Gallbladder surgically absent. No apparent biliary ductal dilatation. At the level of the pancreaticojejunostomy, soft tissue examination is somewhat indistinct. Cannot exclude possibility of mild pancreatitis. Colonic diverticulosis
without acute diverticulitis. No bowel obstruction. No obstructive uropathy. Moderate to large volume ascites. Anasarca.
Echo: Normal left ventricular size and function. Normal regional wall motion. LV
ejection fraction is 69% by volumetric assessment. Normal diastolic function.
Mild concentric left ventricular hypertrophy.
Normal right ventricular size and function.
Mild aortic stenosis. Peak/mean gradients across the aortic valve are 24/10
mmHg. Aortic valve by the Continuity equation is calculated at 1.4 cm2.
Mild to moderate aortic regurgitation.
Ascending aorta dilatation measuring 4.2 cm.
Compared to prior study 10/05/2023, mild aortic stenosis is now present
Ascites:
-clearly the concern her is malignant ascites
-Consult interventional radiology for diagnostic and therapeutic paracentesis, send ascitic fluid for cytology, cell counts, culture, albumin
-h/o pancreatic CA s/p whipple, c/s ONC
-pain control with IV dilaudid
Essential HTN:
-cont cardizem
Hypokalemia:
-replete
[2024-08-25] MEDS: KCL PO (20:19)
[2024-08-25] MEDS: KCL 270 MEQ IV (20:37)
[2024-08-25] MEDS: LOVENOX 40 MG SC (20:38)
[2024-08-26] VITALS (12 sets, daily range): BP systolic 53–144; BP diastolic 52–73; BMI 25.9
[2024-08-26 05:50] LABS: Hematocrit 18.8 % (37.0-47.0); Hemoglobin 6.7 g/dL (12.0-16.0); Mean Corp Hgb Conc. 35.6 g/dL (33.0-37.0); Mean Corpuscular Volume 101.1 fL (81.0-99.0); Mean Platelet Volume 11.6 fL (7.4-10.4); Platelet Count 87 10^3/uL (130-400); Red Blood Cell Count 1.86 10^6/uL (4.20-5.40); White Blood Cell Count 4.8 10^3/uL (4.8-10.8)
--- NOTE | 2024-08-26 06:17 | PTCARENOTE ---
Hgb 6.7 and hct 18.8. Pt w/ no signs of bleeding. VSS. [employer] notified, up to floor to get blood consent. Hemetest stools and type and screen ordered. IV team notified about type and screen. Plan of care ongoing.
[2024-08-26 06:24] LABS: ALT (SGPT) 43 U/L (0-35); AST (SGOT) 63 U/L (14-36); Albumin 1.2 g/dl (3.5-5.0); Alkaline Phosphatase 109 U/L (38-126); Blood Urea Nitrogen 10 mg/dl (7-17); Calcium 7.4 mg/dl (8.4-10.2); Carbon Dioxide 25 mmol/L (22-30); Chloride 110 mmol/L (98-107); Estimated Creatinine Clearance 59 ml/min; Glucose 57 mg/dl (70-99); Magnesium 1.9 mg/dl (1.6-2.3); Potassium 3.7 mmol/L (3.5-5.1); Sodium 139 mmol/L (135-145); Total Bilirubin 1.5 mg/dl (0.2-1.3); Total Protein 5.1 g/dl (6.3-8.2); eGFR > 60.00
--- NOTE | 2024-08-26 06:56 | W.PN.UPDATE ---
Update Note
Progress Note Update
hgb 6.7, no active bleeding, stable VS, type and screen ordered, consent signed and in the chart. heme test stools. Will hold Lovenox.
[2024-08-26] MEDS: PROTONIX 40 MG PO (08:58)
[2024-08-26] MEDS: KCL 40 MEQ PO (08:58)
[2024-08-26] MEDS: THERAGRAN 1 TABLET PO (08:58)
[2024-08-26] MEDS: CARDIZEM CD PO (09:02)
[2024-08-26] MEDS: LASIX 20 MG PO (09:02)
--- NOTE | 2024-08-26 09:12 | W.PN.HOSP.TC ---
Today's Communication/Plan
-
2u pRBC transfusion ordered. Then IR for paracentesis. Oncology consulted.
Assessment / Plan
Assessment / Plan
69-year-old female with PMH of pancreatic cancer s/p Whipple (Jan 2024) and chemo (last Jun 2024), htn who presents to ED for 1 week of abdominal distention/pain/poor oral intake and 2 weeks of leg swelling. Outpatient chest/abd x-rays showed
pleural effusion and possible bowel obstruction, PCP sent her to ED for further evaluation. Also reports mild exertional dyspnea, chest pain with deep inspiration.
New ascites and abdominal pain
Elevated LFTs elevated LFTs, chronic
History of pancreatic cancer s/p whipple (01/2024)/chemo (06/2024)
- Abd/pelvis CT on admission showed large amount of ascites; no signs of pneumoperitoneum, abscess, bowel obstruction. Anasarca. Bilateral pleural effusions.
- Afebrile, no leukocytosis, minimal abdominal tenderness on exam. Not highly suspicious for SBP. Will not begin antibiotics at this time.
- Concern for malignant ascites.
- Follows with Dr. Jarrett; oncology consulted.
- Consult IR for therapeutic/diagnostic paracentesis today after blood transfusion (see below). Fluid culture, cell count, cytology, albumin.
- Pain control with as needed Dilaudid. Avoid Tylenol at this time while trending LFTs.
- If LFTs stable, can space or discontinue CMPs.
Bilateral lower extremity edema
- Echo 08/25/24: normal LV size/function, EF 69%. Mild Ao stenosis compared to prior echo 09/2023.
- BNP 483 (paz zone) on admission
- Do not suspect heart failure
- Continue home lasix, LE elevation
Acute on chronic anemia
Anemia of chronic disease
Hemorrhoids
- On admission, Hgb 8.3 with no symptoms of acute/chronic bleeding (baseline appears to be 8-10)
- Hgb 6.7 this AM --> blood consent signed in chart (I confirmed), cross matched. Will transfuse 2 units.
- Asymptomatic. BP soft this AM, no tachycardia.
- Patient reports streaks of blood on stool/toilet paper from hemorrhoids, does not sound like hemodynamically significant amount of blood loss. Digital rectal exam: external hemorrhoids, no active bleeding. Miralax prn to keep stools soft/easy to
pass. Heme test stools.
- Hold pharmaceutical anticoagulation.
- Transfusion of 2u pRBC ordered. Discussed with patient and nurse.
Hypokalemia
- Suspect this is related to lasix and poor oral intake
- Continue daily PO K, and supplement prn. Follow BMP.
GERD- continue protonix
HTN- Hold home diltiazem 120mg qD this AM given soft BP.
Osteopenia
Arthritis
Code status: DNR
Has advanced directive at home; instructed to bring copy to hospital to scan into chart
If she were to need medical decision maker, it would Phong
VTE ppx: SCDs
Diet: Regular
Dispo planning: Pending clinical course, PT/OT evaluation
Anticipated Discharge: 24 - 48 hours
Subjective/Interval History
-
Date of Service: August 26, 2024
No acute events overnight. No episodes of significant bleeding. This AM hgb 6.7 and she was consented and crossmatched for 2u pRBC.
Feels a little better than yesterday, says she thinks the abdominal bloating and leg swelling have both improved a bit. Still has intermittent abdominal pain. No nausea, vomiting, diarrhea, constipation. She does report history of 'pretty bad'
hemorrhoids that at her baseline occasionally bleed with bowel movements, most recently occurred this morning. Reports streaks of blood on outside of stool and on toilet paper. Denies blood in toilet bowl, saturating pads, black stools, bleeding
without a bowel movement. She reports this is a chronic problem, and has not had a recent increase in blood.
Denies lightheadedness, dizziness, chest pain, shortness of breath, palpitations, nausea, vomiting. Voiding spontaneously. Tolerating oral diet. Has not been out of bed.
Objective Data
-
Labs:
Laboratory Results
08/26/24
05:07
WBC 4.8
Hgb 6.7 L*
Hct 18.8 L*
Plt Count 87 L
Sodium 139
Potassium 3.7
Chloride 110 H
Carbon Dioxide 25
BUN 10
Creatinine 0.6
Glucose 57 L
Calcium 7.4 L
Total Bilirubin 1.5 H
AST 63 H
ALT 43 H
Alkaline Phosphatase 109
Vital Signs:
Vital Signs
Temp Pulse Resp BP Pulse Ox
97.9 F 57 16 102/57 96
08/26/24 07:42 08/26/24 07:42 08/26/24 07:42 08/26/24 07:42 08/26/24 07:42
I&O
08/25/24 08/26/24 08/27/24
06:59 06:59 06:59
Intake Total 480 / 480
Balance 480 / 480
Review of Systems
-
History Source: Patient
All other systems: Reviewed and negative
Physical Exam
-
General: No Apparent Distress, Comfortable, Conversant, Appears Chronically Ill and Cachectic; Negative Pain, Fever, Chills or Sweats
HEENT: Normocephalic, Atraumatic and Anicteric
Respiratory: Clear to Auscultation, Non Labored Respirations and Decreased Breath Sounds (bilaterally at bases); Negative Wheezes, Rales, Rhonchi or Crackles
Cardiac: Regular Rhythm, S1/S2 and Calf Tenderness (bilateral and symmetric; tiesha sign negative bilaterally)
GI: Soft, Normal Bowel Sounds and Tender (tender to palpation epigastric/RUQ, mild.)
Rectal: Hemorrhoids and Other (digital rectal exam (chaperoned by nurse): external hemorrhoids, nonthrombosed, no active bleeding externally, no stool/blood in rectum)
Musculoskeletal: Other (bilateral lower extremity edema +1, symmetric)
Neuro: Awake, Alert, Oriented and Nonfocal/Grossly Intact
Psych: Calm and Intact Judgement/Insight
Data Reviewed
-
Diagnostic Radiology: Image personally visualized and interpreted and Report Reviewed by me
CT Scan: Image personally visualized and interpreted and Report Reviewed by me
Medical Tests (Nuc Med, Echo etc): Report Reviewed by me
Labs: Labs Reviewed by me, Discussed with Physician, Discussed with Nurse and Discussed with Patient
--- NOTE | 2024-08-26 09:47 | W.PN.UPDATE ---
Addendum entered and electronically signed by Jaden Bell MD 08/26/24 14:32:
moderate protein calorie malnutrition
Original Note:
Update Note
Progress Note Update
I saw and evaluated the patient. I reviewed the resident�s note and agree with findings and plan as documented in the resident�s note.
Denies abd pain. Reports h/o hemorrhoids with streaks of blood on toilet paper.
Gen: NAD, AAOx3, appears chronically ill and malnourished.
Eyes: EOMI, PERRLA, no scleral icterus.
Neck: supple.
CV: remains RRR, +S1/S2, no m/r/g.
Resp: remains CTAB, no rales, wheezes, or rhonchi.
Abd: remains +BS, soft, NT, moderately distended with ascites
Skin: No rashes.
Neuro: CN 2-12 intact, non-focal.
Psych: Normal mood and affect.
CT A/P: Small to moderate bilateral pleural effusions. Adjacent parenchymal consolidation, likely atelectasis. Progressive severe diffuse diminished hepatic parenchymal attenuation. Most likely severe hepatic fatty infiltration. Prior Whipple
procedure. Gallbladder surgically absent. No apparent biliary ductal dilatation. At the level of the pancreaticojejunostomy, soft tissue examination is somewhat indistinct. Cannot exclude possibility of mild pancreatitis. Colonic diverticulosis
without acute diverticulitis. No bowel obstruction. No obstructive uropathy. Moderate to large volume ascites. Anasarca.
Echo: Normal left ventricular size and function. Normal regional wall motion. LV
ejection fraction is 69% by volumetric assessment. Normal diastolic function.
Mild concentric left ventricular hypertrophy.
Normal right ventricular size and function.
Mild aortic stenosis. Peak/mean gradients across the aortic valve are 24/10
mmHg. Aortic valve by the Continuity equation is calculated at 1.4 cm2.
Mild to moderate aortic regurgitation.
Ascending aorta dilatation measuring 4.2 cm.
Compared to prior study 10/05/2023, mild aortic stenosis is now present
Ascites:
-clearly the concern here is malignant ascites
-Consult interventional radiology for diagnostic and therapeutic paracentesis, send ascitic fluid for cytology, cell counts, culture, albumin
-h/o pancreatic CA s/p whipple, c/s ONC
-pain control with IV dilaudid
Anemia:
-likely mostly dilutional as well as anemia of chronic disease
-smaller component of ABLA
-transfuse 2U pRBCs
Essential HTN:
-cont Cardizem
Hypokalemia:
-resolved
DNR/SCDs
Total time spent on today's encounter was 50 minutes which included time spent in counseling the patient/family regarding diagnosis and treatment plan as listed above, goals of care, and symptom management. Case was discussed with nursing staff,
specialists, and care coordinators/case management. All labs and imaging personally reviewed by me. Remainder the time spent in detailed review of previous records, lab data, imaging, and other medical provider documentation.
--- NOTE | 2024-08-26 11:13 | PTCARENOTE ---
pt tolerating PRBC transfusion, IRAD aware. paracentesis pending. 2 Units ordered. VSS spouse at bedside, CB in reach.
--- NOTE | 2024-08-26 12:05 | PN.CDI ---
CDI
- -
CDI:
Physician Documentation Request
Admit Date: 08/25/24 17:59
Dear Doctor Lovely,
Clinical Indicators:
Patient admitted with ascites; PMH includes pancreatic cancer.
08/26 PN, '...appears chronically ill and malnourished.'
08/26 RD note/assessment, Subcutaneous Loss: Rib Cage- Moderate Orbital- Mild
Muscle Loss: Temporal - Moderate Clavicle - Moderate
'During visit RD able to visulize protrusion of cavical, apparent ribs, temporal wasting a
and orbital area slightly sunken in. With NFPA and < 75% estimated needs > 1 month
pt meets AND/ASPEN criteria for moderate protein calorie malnutrition of chronic
illness.'
Please provide in your progress notes, additional specificity regarding the severity of the malnutrition:
Moderate Protein Calorie Malnutrition
Other (please specify)
[place] Criteria ([facility] Hospitalist 2017)
2 or more criteria must be present for either
non severe or severe malnutrition
Note that the criteria differs related to the
presence of an acute or chronic illness
Acute Illness Chronic Illness
Energy Intake Non Severe: <75% for >7 days Non Severe: <75% for >1 month
Severe: <50% for >5 days Severe: <75% for >1 month
Weight Loss Non Severe: 1-2% over 1 week Non Severe: 5% over 1 month
5% over 1 month 7.5% over 3 months
7.5% over 3 months 10% over 6 months
1 year N/A 20% over 1 year
Severe: >2% over 1 week Severe: >5% over 1 month
>5% over 1 month >7.5% over 3 months
>7.5% over 3 months >10% over 6 months
1 year N/A >20% over 1 year
Body Fat Non Severe: Mild Decrease Non Severe: Mild Loss
Severe: Moderate Decrease Severe: Severe Loss
Muscle Mass Non Severe: Mild Decrease Non Severe: Mild Loss
Severe: Moderate Decrease Severe: Severe Loss
Fluid Accumulation Non Severe: Mild Accumulation Non Severe: Mild Accumulation
Severe: Moderate to severe Severe: Moderate to severe
accumulation accumulation
Reduced Cook 3 Pastry Strength Non Severe: N/A Non Severe: N/A
Severe: Measurably reduced Severe: Measurably reduced
Additional criteria that can be used to Determine if Mild or Moderate Malnutrition ([employer] Manual 2018)
Mild Moderate Severe
Albumin gm/dl <3.0 gm/dl <2.5 gm/dl <2.0 gm/dl
Pre Albumin mg/dl <15 gm/dl <10 mg/dl <5.0 mg/dl
BMI <18.5 <17 <16
Use of terms such as suspected, likely, concern for, or probable (associated with a specific diagnosis that is being evaluated, monitored, or treated as if it exists) are acceptable and can be coded in the inpatient setting, when documented at the
time of discharge.
Thank you,
Janet Maguire RN BSN
CDI Specialist
available via tiger text
Please use your independent medical judgment in providing your response.
--- NOTE | 2024-08-26 12:16 | CM ---
Patient seen at bedside. Patient states that she lives with her in a 2 story home. Patient PCP is Dr. Lay and he uses the [facility]. Patient states that she is a first floor set up. Patient has a walker, no VN in the past, and
Patient has no concerns about bills. CM will continue to follow for discharge planning needs.
Plan; home with VN vs home with no needs.
[2024-08-26 14:02] LABS: Body Fluid Mononuclear 82.8 %; Body Fluid Polymorphonuclear 17.2 %; Body Fluid WBC 81 /CUMM
[2024-08-26 14:03] LABS: Body Fluid Second Tech EM
[2024-08-26 14:14] LABS: Body Fluid Albumin < 1.0 g/dl
--- NOTE | 2024-08-26 14:15 | CON.ONC ---
Documented by User: Eduin Buchanan MD, Resident 08/26/24 16:11
Impression
Impression
69 year old female
History of Stage IIB Pancreatic Cancer
Ascites
Plan
Plan
- Will check CA 19-9
- Pending Fluid analysis from paracentesis for evidence of malignant ascites
- Follow up with Dr. Jarrett as outpatient for further management and treatment options
Patient History
History of Present Illness
69 year old female known to Dr. Jarrett with a past medical history significant for pancreatic cancer s/p Whipple Procedure in January 2024 with chemotherapy before and after surgery with her last dose in June 2024.
She was diagnosed with Pancreatic cancer in 2023 when she presented to the ED with epigastric discomfort, pruritus, transaminitis, and pale stools. Imaging showed mass at the head of the pancreas. Biliary stent was placed, FNA showed adenocarcinoma,
PET scan showed focus of uptake at the pancreatic head. She received 6 doses of FOLFIRINOX in December 2023 and had a Whipple procedure with Dr. Michel at [facility] in January 2024. Pathology demonstrated mod. differentiated adenocarcinoma (ductal type) w/
perineural invasion but w/o angiolymphatic invasion and 2 of 15 local lymph nodes positive for metastatic disease. Staging at that time was Stage IIB. She received Adjuvant chemo ending in June 2024. She had been seen at in June for
abdominal pain, for which CT scans at the time were negative for recurrence in the chest, abdomen and pelvis (06/17/2024). Most recently, she was seen in on 08/04/2024 for leg swelling, for which LE DVT was ruled out by Doppler and she was sent
home on low dose Lasix. The swelling improved somewhat but she developed abdominal pain and abdominal bloating within the last week for which she was seen by the PCP. She was sent for CXR and Abd XR which demonstrated concern for bowel obstruction
and pleural effusions for which she was sent to the ED.
While in the ED she was found to have significant Ascites on repeat CT scan of the abdomen and pelvis. She was scheduled for a paracentesis with fluid cytology.
She was seen by me s/p paracentesis. She is feeling better and her abdominal pain is much improved. She is still having LE swelling, however. There are no constitutional symptoms at this time. She denies shortness of breath, chest pain, n/v/d. She
is passing gas and has an appetite.
Past-Medical/Surgical History
Past Medical History: H/o Stage IIB Pancreatic Cancer s/p Whipple, s/p neoadjuvant/adjuvant chemo, hypertension, GERD
Past Surgical History: Whipple Procedure 2023, x2, Ectopic w/ Oophorectomy, Lumpectomy,
Patient Medication
�Medication �Instructions �Recorded �Confirmed �Last Taken �Type
omeprazole 40 mg capsule,delayed 40 mg PO DAILY Gastrointestinal 09/13/23 08/25/24 08/25/24 History
release Issue
furosemide 20 mg tablet (Lasix) 20 mg PO DAILY #5 tabs 08/04/24 08/25/24 08/25/24 Rx
diltiazem HCl 120 mg 120 mg PO DAILY 08/25/24 08/25/24 08/25/24 History
capsule,extended release 24 hr
hydrocortisone 2.5 % topical cream 1 applic topical DAILYPRN PRN 08/25/24 08/25/24 Unknown History
hemorrhoids
potassium chloride 20 mEq 20 meq PO DAILY 08/25/24 08/25/24 Unknown History
tablet,extended release(part/cryst)
psyllium husk 3.4 gram/5.4 gram 1 tsp PO DAILY 08/25/24 08/25/24 08/25/24 History
oral powder (Metamucil)
therapeutic multivitamin 1 tab PO Q48H 08/25/24 08/25/24 Unknown History
Active Medications
Generic Name Dose Route Start Last Admin
Trade Name Freq PRN Reason Stop Dose Admin
Bisacodyl 10 mg 08/25/24 19:31
Bisacodyl 10 Mg Rectal Suppository RECTAL 09/22/24 19:30
G43PART PRN
constipation
Diltiazem HCl 120 mg 08/26/24 08:00 08/26/24 09:02
Diltiazem 120 Mg Extended Release (24 H) Capsule PO 09/23/24 07:59 Not Given
DAILY ROSENDA
Furosemide 20 mg 08/26/24 08:00 08/26/24 09:02
Furosemide 20 Mg Tablet PO 09/23/24 07:59 20 mg
DAILY ROSENDA Administration
Heparin Sodium (Porcine) 500 unit 08/25/24 20:30 08/26/24 00:50
Heparin Flush Pf (100 Unit/Ml) 5 Ml Syringe IV 09/22/24 20:29 500 unit
PER PROTOCOL ROSENDA Administration
Hydromorphone HCl 0.5 mg 08/25/24 19:31
Hydromorphone 0.5 Mg/0.5 Ml Syringe IV 09/08/24 19:30
Q4HPRN PRN
severe pain
Multivitamins Therapeutic 1 tablet 08/26/24 08:00 08/26/24 08:58
Multivitamin Tablet PO 09/23/24 07:59 1 tablet
Q48H ROSENDA Administration
Pantoprazole Sodium 40 mg 08/26/24 08:00 08/26/24 08:58
Pantoprazole 40 Mg Delayed Release Tablet PO 09/23/24 07:59 40 mg
DAILY ROSENDA Administration
Polyethylene Glycol 17 grams 08/25/24 19:31
Polyethylene Glycol Powder 17 Grams Packet PO 09/22/24 19:30
DAILYPRN PRN
constipation
Potassium Chloride 40 meq 08/25/24 19:31 08/26/24 08:58
Potassium Chloride 20 Meq Extended Release Tablet PO 09/22/24 19:30 40 meq
DAILY ROSENDA Administration
Sodium Chloride 0 flush 08/25/24 20:00
Sodium Chloride 0.9% (Flush) Syringe IV 09/22/24 19:59
PER PROTOCOL ROSENDA
Review of Systems
-
History Source: Patient
Constitutional: Reports Fatigue; Denies Night Sweats or Chills
EENT: Reports No Symptoms
Respiratory: Reports No Symptoms
Cardiac: Reports No Symptoms
GI: Reports Abdominal Pain; Denies Nausea, Vomiting, Diarrhea or Constipated
Breast: Reports No Symptoms
: Reports No Symptoms
Musculoskeletal: Reports No Symptoms
Skin: Reports No Symptoms
Neuro: Reports No Symptoms
Hematologic/Lymphatic: Reports No Symptoms
Physical Exam
-
General: Well Developed, Well Nourished and Comfortable
HEENT: Moist Mucous Membranes
Cardiology: Normal Sinus Rhythm, S1, S2 and Murmur
Pulmonary: Rales; Negative Wheezes
GI: Soft, Normal Bowel Sounds and Flat
Extremities: No C/C/E
Skin: Warm, Dry, IV Access / Catheter Site and No Ecchymosis
Hematologic / Lymphatic: No Petechiae
Psych: Calm
Labs
Lab Results
WBC 4.8 10^3/uL (4.8-10.8) 08/26/24 05:07
RBC 1.86 10^6/uL (4.20-5.40) L 08/26/24 05:07
Hgb 6.7 g/dL (12.0-16.0) L* 08/26/24 05:07
Hct 18.8 % (37.0-47.0) L* 08/26/24 05:07
MCV 101.1 fL (81.0-99.0) H 08/26/24 05:07
MCH 36.0 pg (27.0-31.0) H 08/26/24 05:07
MCHC 35.6 g/dL (33.0-37.0) 08/26/24 05:07
RDW 15.0 % (11.5-14.5) H 08/26/24 05:07
Plt Count 87 10^3/uL (130-400) L 08/26/24 05:07
MPV 11.6 fL (7.4-10.4) H 08/26/24 05:07
Abs Immat Gran (auto) 0.0 10^3/uL (0-0.05) 08/25/24 15:26
Absolute Neuts (auto) 2.8 10^3/uL (1.4-6.5) 08/25/24 15:
Absolute Lymphs (auto) 2.1 10^3/uL (1.2-3.4) 08/25/24 15:26
Absolute Monos (auto) 0.6 10^3/uL (0.1-0.6) 08/25/24 15:
Absolute Eos (auto) 0.1 10^3/uL (0-0.7) 08/25/24 15:
Absolute Basos (auto) 0.0 10^3/uL (0-0.2) 08/25/24 15:26
Immature Gran % 0.4 % (0-0.5) 08/25/24 15:26
Neutrophils % 49.8 % (42.2-75.2) 08/25/24 15:26
Lymphocytes % 37.6 % (20.5-51.1) 08/25/24 15:26
Monocytes % 10.2 % (1.7-9.3) H 08/25/24 15:26
Eosinophils % 1.8 % (0-6) 08/25/24 15:
Basophils % 0.2 % (0-2) 08/25/24 15:26
Creatinine 0.6 mg/dL (0.6-1.0) 08/26/24 05:07
Vital Signs
Vital Signs
Temp Pulse Resp BP Pulse Ox
97.7 F 49 16 126/65 98
08/26/24 12:50 08/26/24 13:28 08/26/24 13:28 08/26/24 13:28 08/26/24 12:50

Documented by User: Rory Ratliff MD 08/26/24 16:55
Plan
Plan
- Will check CA 19-9
- Pending Fluid analysis from paracentesis for evidence of malignant ascites
- Follow up with Dr. Jarrett as outpatient for further management and treatment options
Oncology Addendum:
Patient seen and evaluated and agree w/ resident note and plan as outlined
-pancreatic cancer- s/p 6 cylces neoadjuvant FOLFIRI followed by whipple resection at [facility] and an additional 6 cycles adjuvant FOLFIRI
-await cytology from paracentesis
-Ca 19-9 pending
--- NOTE | 2024-08-26 15:11 | PTCARENOTE ---
pt returned from [facility] S/P paracentesis. VS WNL, 2nd unit PRBC ordered
--- NOTE | 2024-08-26 15:52 | W.PN.UPDATE ---
Update Note
Progress Note Update
At bedside to reevaluate patient. She is now status post paracentesis and 1 unit PRBC transfusion. She reports IR drained over 2 L of fluid from her abdomen. She feels slightly better without the distention. No further BM or bleeding since the 1
episode this morning. Physical exam notable for significant reduction of abdominal distention�soft, now nondistended, mild tenderness to palpation RUQ/epigastric unchanged from prior. Her bilateral lower extremity edema remains similar to this
morning. She is comfortable and conversant, no acute distress, enjoys having her visiting. Plan for second unit PRBC transfusion today, recheck Hgb in AM.
[2024-08-27 06:00] VITALS: BMI 24.2
[2024-08-27 06:01] LABS: Hematocrit 27.9 % (37.0-47.0); Hemoglobin 9.9 g/dL (12.0-16.0); Mean Corp Hgb Conc. 35.5 g/dL (33.0-37.0); Mean Corpuscular Hgb 32.6 pg (27.0-31.0); Mean Corpuscular Volume 91.8 fL (81.0-99.0); Mean Platelet Volume 10.5 fL (7.4-10.4); Platelet Count 84 10^3/uL (130-400); Red Blood Cell Count 3.04 10^6/uL (4.20-5.40); Red Cell Dist. Width 19.3 % (11.5-14.5); White Blood Cell Count 4.3 10^3/uL (4.8-10.8)
[2024-08-27 06:28] LABS: ALT (SGPT) 45 U/L (0-35); AST (SGOT) 67 U/L (14-36); Albumin 1.5 g/dl (3.5-5.0); Alkaline Phosphatase 104 U/L (38-126); Blood Urea Nitrogen 9 mg/dl (7-17); Calcium 7.3 mg/dl (8.4-10.2); Carbon Dioxide 26 mmol/L (22-30); Chloride 110 mmol/L (98-107); Estimated Creatinine Clearance 67 ml/min; Glucose 69 mg/dl (70-99); Potassium 3.9 mmol/L (3.5-5.1); Sodium 138 mmol/L (135-145); Total Bilirubin 2.4 mg/dl (0.2-1.3); Total Protein 5.1 g/dl (6.3-8.2); eGFR > 60.00
[2024-08-27 07:26] VITALS: BP 129/63
[2024-08-27] MEDS: PROTONIX 40 MG PO (08:18)
[2024-08-27] MEDS: LASIX 20 MG PO (08:18)
[2024-08-27] MEDS: KCL 40 MEQ PO (08:18)
[2024-08-27] MEDS: CARDIZEM CD 120 MG PO (08:19)
[2024-08-27 09:01] VITALS: BP 142/75; PULSE 59; O2SAT 100
[2024-08-27 09:10] VITALS: BP 142/75; PULSE 59; O2SAT 100
[2024-08-27] MEDS: TYLENOL 650 MG PO (09:31)
--- NOTE | 2024-08-27 10:28 | W.PN.HOSP.TC ---
Today's Communication/Plan
-
IV albumin today
Assessment / Plan
Assessment / Plan
pt is a 69 year old female
New ascites and abdominal pain (pain likely from ascites)--ascites could be due to recurrent cancer OR nutritional (albumin is 1.5)--s/p 2300ml paracentesis--path pending--Ca 19-9 pending--will give IV albumin today
Elevated LFTs elevated LFTs, chronic
History of pancreatic cancer s/p whipple (01/2024)/chemo (06/2024)--finished chemo 06/2024--follows with Dr. Jarrett--path and CA 19-9 pending
Bilateral lower extremity edema--pt says legs improved--likely nutritional with albumin 1.5- Echo 08/25/24: normal LV size/function, EF 69%. Mild Ao stenosis compared to prior echo 09/2023-- Do not suspect heart failure
Acute on chronic anemia/Anemia of chronic disease--s/p 2 units pRBC with improvement from 6.7 to 9.9-- Patient reports streaks of blood on stool/toilet paper from hemorrhoids, does not sound like hemodynamically significant amount of blood loss.
Digital rectal exam done by prior team showed external hemorrhoids, no active bleeding. Miralax prn to keep stools soft/easy to pass. Heme test stools.
Hypokalemia--replete--check mag
GERD- continue protonix
Essential HTN- Hold home diltiazem 120mg qD this AM given soft BP.
Osteopenia
Arthritis
DVT proph
Code status: DNR
Anticipated Discharge: Within 24 hours
Subjective/Interval History
-
Date of Service: August 27, 2024
pt feeling a bit better--using her cane--hoping to go home
Objective Data
-
Labs:
Laboratory Results
08/27/24
05:12
WBC 4.3 L
Hgb 9.9 L D
Hct 27.9 L
Plt Count 84 L
Sodium 138
Potassium 3.9
Chloride 110 H
Carbon Dioxide 26
BUN 9
Creatinine 0.6
Glucose 69 L
Calcium 7.3 L
Total Bilirubin 2.4 H D
AST 67 H
ALT 45 H
Alkaline Phosphatase 104
Vital Signs:
max temp for 24 hours
08/26/24
23:00
Temp 99.4 F
Vital Signs
Temp Pulse Resp BP Pulse Ox
97.9 F 49 14 129/63 97
08/27/24 07:26 08/27/24 07:26 08/27/24 07:26 08/27/24 07:26 08/27/24 07:26
I&O
08/26/24 08/27/24 08/28/24
06:59 06:59 06:59
Intake Total 480 / 480 980 / 980 240 / 240
Balance 480 / 480 980 / 980 240 / 240
Review of Systems
-
All other systems: Reviewed and negative
Physical Exam
-
General: Well Developed and Well Nourished
HEENT: Normocephalic and Atraumatic; Negative Oxygen
Respiratory: Clear to Auscultation; Negative Wheezes or Rhonchi
Cardiac: Regular Rhythm, S1/S2 and Murmur
GI: Soft, Nontender, Nondistended and Normal Bowel Sounds
Musculoskeletal: No Clubbing, No Cyanosis and No Edema
Psych: Calm
--- NOTE | 2024-08-27 11:12 | CM ---
Met with patient, spouse and her friends to discuss home PT. Patient agrees to start with home PT but then knows outpatient is better as there is equipment she can use. She states she used [facility] in past after TKA surgeries and wants them again.
Referrral sent in [employer].
PLan discharge home thursday with [facility] PT only.
[2024-08-27] MEDS: FLEXBUMIN 100 IV (11:48)
[2024-08-27] MEDS: PREPARATION H MAX STRENGTH PAIN RELIEF CREAM 1 APPLIC RECTAL (11:56)
--- NOTE | 2024-08-27 13:14 | W.PN.ONC2 ---
Today's Communication / Plan
-
- albumin replacement
- restart creon.
- await fluid cyto.
Impression
Impression
69 year old female
History of Stage IIB Pancreatic Cancer
Ascites/peripheral edema
Plan
Plan
- new third spacing with LE edema and new ascites, small pleural effusions.
- DDX: new metastases involving pleura. vs. liver decompensation related to cancer or cancer interventions vs. hypoalbuminemia/low protein
- No obvious new peritoneal carcinomatosis, liver lesions or other sites of metastatic disease on imaging. await cytology from paracentesis
-Ca 19-9 pending
- pt with severe hypoalbuminemia with albumin 1.5, total protein 5.1.
- check urine protein to rule out nephrotic syndrome however suspect low protein levels related to malnutrition w/ poor appetite and poor absorption s/p whipple and pt stopping creon several weeks ago due to concern it was causing diarrhea. restart
Creon now ( will bring in medication). agree with IV albumin replacement.
- monitor for re-accumulation, need for repeat para.
-pancreatic cancer- s/p 6 cylces neoadjuvant FOLFIRI followed by whipple resection at [facility] and an additional 6 cycles adjuvant FOLFIRI, completed in June.
- pancytopenia with acute on chronic anemia: denies bleeding. B12, iron levels normal. mild elevation in T bili however normal retic, LDH value not c/w hemolysis. suspect element of fluid shifts contributing to acute drops in plts, hgb. check
copper.
- s/p 2 units pRBCs with rise in hgb to 9.9 g/dl.
- CBC daily. transfuse for hgb < 7.0 g/dl.
Subjective/Objective
Chief Complaint
ascites, hx of pancreatic cancer
Subjective
pt had 2.2 L removed with IR yesterday. she notes improvement in discomfort however feels already becoming distended again. LE swelling improved. Denies SOB, epigastric pain, melena, BRBPR.
Vital Signs:
Vital Signs
Temp Pulse Resp BP Pulse Ox
97.9 F 49 14 129/63 97
08/27/24 07:26 08/27/24 07:26 08/27/24 07:26 08/27/24 07:26 08/27/24 07:26
Lab Results:
Laboratory Data
WBC 4.3 10^3/uL (4.8-10.8) L 08/27/24 05:12
Hgb 9.9 g/dL (12.0-16.0) L D 08/27/24 05:12
Plt Count 84 10^3/uL (130-400) L 08/27/24 05:12
eGFR > 60.00 08/27/24 05:12
Physical Exam
HEENT: Moist Mucous Membranes and Other (cachectic appearance ); No Jaundice
Cardiology: Normal Sinus Rhythm
Pulmonary: Clear; No Wheezes
GI: Soft and Distended
Extremities: No C/C/E; No Edema
Neuro: Non Focal
Review of Systems
Review of Systems
Constitutional: Denies Fever
Respiratory: Denies Dyspnea
Cardiovascular: Denies Chest Pain
Gastrointestinal: Reports Other (distention ); Denies Nausea/Vomiting or Diarrhea
Orders
Orders
Orders From Last 24 Hours
08/27/24 16:00
Creon 24,000 capsule PO TID
[2024-08-27 14:34] LABS: Urine Protein < 5 mg/dl
[2024-08-27 15:21] VITALS: BP 113/58
[2024-08-27 23:00] VITALS: BP 112/60
[2024-08-28 07:36] VITALS: BP 123/69
[2024-08-28] MEDS: CARDIZEM CD 120 MG PO (08:16)
[2024-08-28] MEDS: LASIX 20 MG PO (08:17)
[2024-08-28] MEDS: KCL 40 MEQ PO (08:17)
[2024-08-28] MEDS: THERAGRAN 1 TABLET PO (08:17)
[2024-08-28] MEDS: PROTONIX 40 MG PO (08:17)
[2024-08-28 08:18] LABS: ALT (SGPT) 56 U/L (0-35); AST (SGOT) 93 U/L (14-36); Albumin 2.2 g/dl (3.5-5.0); Alkaline Phosphatase 137 U/L (38-126); Blood Urea Nitrogen 8 mg/dl (7-17); Calcium 8.4 mg/dl (8.4-10.2); Carbon Dioxide 28 mmol/L (22-30); Chloride 108 mmol/L (98-107); Estimated Creatinine Clearance 50 ml/min; Glucose 69 mg/dl (70-99); Magnesium 2.1 mg/dl (1.6-2.3); Potassium 4.2 mmol/L (3.5-5.1); Sodium 139 mmol/L (135-145); Total Bilirubin 2.5 mg/dl (0.2-1.3); Total Protein 6.5 g/dl (6.3-8.2); eGFR > 60.00
[2024-08-28 08:23] LABS: Hematocrit 34.1 % (37.0-47.0); Hemoglobin 11.8 g/dL (12.0-16.0); Mean Corp Hgb Conc. 34.6 g/dL (33.0-37.0); Mean Corpuscular Hgb 32.2 pg (27.0-31.0); Mean Corpuscular Volume 92.9 fL (81.0-99.0); Mean Platelet Volume 10.3 fL (7.4-10.4); Platelet Count 95 10^3/uL (130-400); Red Blood Cell Count 3.67 10^6/uL (4.20-5.40); Red Cell Dist. Width 18.5 % (11.5-14.5); White Blood Cell Count 4.9 10^3/uL (4.8-10.8)
--- NOTE | 2024-08-28 10:13 | W.PN.HOSP.TC ---
Today's Communication/Plan
-
d/c after albumin infusion
Assessment / Plan
Assessment / Plan
pt is a 69 year old female
New ascites and abdominal pain (pain likely from ascites)--ascites could be due to recurrent cancer OR nutritional (albumin is 1.5)--s/p 2300ml paracentesis--path pending--Ca 19-9 pending--s/p IV albumin x1 with albumin improvement to 2.2--will give
one more today
Elevated LFTs elevated LFTs, chronic
History of pancreatic cancer s/p whipple (01/2024)/chemo (06/2024)--finished chemo 06/2024--follows with Dr. Jarrett--path and CA 19-9 pending
Bilateral lower extremity edema--pt says legs improved--likely nutritional with albumin 1.5- Echo 08/25/24: normal LV size/function, EF 69%. Mild Ao stenosis compared to prior echo 09/2023-- Do not suspect heart failure
Acute on chronic anemia/Anemia of chronic disease--s/p 2 units pRBC with improvement from 6.7 to 9.9-- Patient reports streaks of blood on stool/toilet paper from hemorrhoids, does not sound like hemodynamically significant amount of blood loss.
Digital rectal exam done by prior team showed external hemorrhoids, no active bleeding. Miralax prn to keep stools soft/easy to pass. Heme test stools.
Hypokalemia--replete--check mag
GERD- continue protonix
Essential HTN- Hold home diltiazem 120mg qD this AM given soft BP.
Osteopenia
Arthritis
DVT proph
Code status: DNR
Anticipated Discharge: Today
Subjective/Interval History
-
Date of Service: August 28, 2024
pt looks much improved
Objective Data
-
Labs:
Laboratory Results
08/28/24
07:25
WBC 4.9
Hgb 11.8 L
Hct 34.1 L
Plt Count 95 L
Sodium 139
Potassium 4.2
Chloride 108 H
Carbon Dioxide 28
BUN 8
Creatinine 0.7
Glucose 69 L
Calcium 8.4
Total Bilirubin 2.5 H
AST 93 H
ALT 56 H
Alkaline Phosphatase 137 H
Vital Signs:
max temp for 24 hours
08/27/24
23:00
Temp 98.0 F
Vital Signs
Temp Pulse Resp BP Pulse Ox
97.9 F 60 17 123/69 95
08/28/24 07:36 08/28/24 08:16 08/28/24 07:36 08/28/24 08:16 08/28/24 07:36
I&O
08/27/24 08/28/24 08/29/24
06:59 06:59 06:59
Intake Total 980 / 980 1320 / 1320
Balance 980 / 980 1320 / 1320
Review of Systems
-
All other systems: Reviewed and negative
Physical Exam
-
General: Well Developed, Well Nourished and No Apparent Distress
HEENT: Normocephalic and Atraumatic
Respiratory: Clear to Auscultation; Negative Wheezes or Rhonchi
Cardiac: Regular Rhythm, S1/S2 and Murmur
GI: Soft, Nontender, Nondistended and Normal Bowel Sounds
Musculoskeletal: No Clubbing and No Cyanosis; Negative No Edema (2+ LE edema bilaterally)
Neuro: Awake
Psych: Calm
[2024-08-28] MEDS: FLEXBUMIN 100 IV (10:36)
--- NOTE | 2024-08-28 11:13 | CM ---
CM following re: d/c planning.
Pt for d/c today. DC plan is for pt to return home with [facility] services.
CM met with pt and spouse at bedside, confirmed all details.
Spouse will transport pt home today.
IMM completed.
Goal: home with [facility].
--- NOTE | 2024-08-28 12:25 | W.PN.ONC2 ---
Today's Communication / Plan
-
- no rapid re-accumulation of ascites.
- ok for discharge
- will follow up fluid cyto and review at new oncology visit 08/31
Impression
Impression
69 year old female
History of Stage IIB Pancreatic Cancer
Ascites/peripheral edema
Plan
Plan
- new third spacing with LE edema and new ascites, small pleural effusions.
- DDX: new metastases involving pleura. vs. liver decompensation related to cancer or cancer interventions vs. hypoalbuminemia/low protein
- No obvious new peritoneal carcinomatosis, liver lesions or other sites of metastatic disease on imaging. await cytology from paracentesis
-Ca 19-9 pending
- pt with severe hypoalbuminemia with albumin 1.5, total protein 5.1.
- spot urine protein < 5. suspect low protein levels related to malnutrition w/ poor appetite and poor absorption s/p whipple and pt stopping creon several weeks ago due to concern it was causing diarrhea. restarted Creon now ( brought in
medication). agree with IV albumin replacement.
- monitor for re-accumulation, need for repeat para.
-pancreatic cancer- s/p 6 cylces neoadjuvant FOLFIRI followed by whipple resection at [facility] and an additional 6 cycles adjuvant FOLFIRI, completed in June.
- pancytopenia with acute on chronic anemia: denies bleeding. B12, iron levels normal. mild elevation in T bili however normal retic, LDH value not c/w hemolysis. suspect element of fluid shifts contributing to acute drops in plts, hgb. checked
copper.
- s/p 2 units pRBCs with rise in hgb to 9.9 g/dl.
- CBC daily. transfuse for hgb < 7.0 g/dl.
Subjective/Objective
Chief Complaint
new ascites, hx of pancreatic cancer
Subjective
pt with no new complaints today. abdominal distention and LE swelling unchanged compared to yesterday.
Vital Signs:
Vital Signs
Temp Pulse Resp BP Pulse Ox
97.9 F 60 17 123/69 95
08/28/24 07:36 08/28/24 08:16 08/28/24 07:36 08/28/24 08:16 08/28/24 11:55
Lab Results:
Laboratory Data
WBC 4.9 10^3/uL (4.8-10.8) 08/28/24 07:25
Hgb 11.8 g/dL (12.0-16.0) L 08/28/24 07:25
Plt Count 95 10^3/uL (130-400) L 08/28/24 07:25
eGFR > 60.00 08/28/24 07:25
Physical Exam
HEENT: No Jaundice
GI: Soft and Distended; No Fluid Wave
Extremities: Edema (trace to 1+)
Neuro: Non Focal
Review of Systems
Review of Systems
Constitutional: Denies Fever
Respiratory: Denies Dyspnea
Gastrointestinal: Denies Nausea/Vomiting
Orders
Orders
Orders From Last 24 Hours
08/27/24 14:00
Urine Protein/Creat Ratio (Random) [Protein/Creat Ratio (Random)] Routine
08/27/24 14:42
Copper, Serum [S] Routine
08/27/24 16:00
Creon 24,000 capsule PO TID
[2024-08-28 13:02] VITALS: BP 128/83
--- NOTE | 2024-08-28 13:03 | W.DCSUMMARY ---
Discharge Summary
Discharge Data
Date of Admission: 08/25/24
Date of Discharge: 08/28/24
-
Pending Results: Yes
Additional Pending Results:
serum copper, fluid cytology, Ca 19-9
Hospital Course
Primary care physician : Aramis George
Principal Discharge diagnosis : New onset ascites and abdominal pain
Chronic Discharge diagnosis : Chronic elevated liver function test, history of pancreatic cancer status post Whipple procedure along with chemotherapy which finished June 2024, bilateral lower extremity edema, acute on chronic anemia with anemia
of chronic disease, gastroesophageal reflux disease, essential hypertension, osteopenia
Hospital Course : Patient was a 69-year-old female who was diagnosed with pancreatic cancer in January 2024 and underwent Whipple procedure at that time. She then underwent chemotherapy and finished that June 2024. She presented with abdominal
distention pain and leg swelling. She stated that this has been ongoing for approximately 2 weeks and was seen in the emergency department prior. 5 days of Lasix did help and she restarted the Lasix on the day prior to admission by her primary
care physician. Abdominal distention started approximately 1 week prior to admission with feeling bloated and full and poor oral intake. After week without improvement, she did see her primary care physician who ordered chest and abdominal x-rays
which showed a pleural effusion and possible bowel obstruction. She was sent to the emergency department. She was found to have significant ascites on exam and was admitted.
Problem #1: New onset ascites and abdominal pain. Patient was seen in consultation by interventional radiology and 2300 mL of clear yellow ascitic fluid was removed. Analysis of the fluid is not consistent with portal hypertension. There appears
to be no signs of infection in the fluid either. With patient's history of pancreatic cancer, certainly recurrence and metastatic ascitic fluid is possible. Cytology has been sent and is pending at this time. However, it was noticed that the
patient had very low albumin levels (as low as 1.2 on August 26, 2024). Low albumin levels can cause decreased oncotic pressure in the blood vessels and cause third spacing of fluid into the soft tissues as well as increased ascitic fluid. Patient
was given IV albumin daily x 2 with improvement of her albumin to the mid 2 range. No rapid reaccumulation of fluid was noted. Also of note, patient has had poor appetite and poor oral intake since stopping her Creon (thinking it was giving her
diarrhea). Hematology was consulted and recommended restarting the Creon as well as agreeing with IV albumin infusion.
Problem #2: All other medical issues. These include Chronic elevated liver function test, history of pancreatic cancer status post Whipple procedure along with chemotherapy which finished June 2024, bilateral lower extremity edema, acute on
chronic anemia with anemia of chronic disease, gastroesophageal reflux disease, essential hypertension, osteopenia. In regards to the patient's anemia, she was given 2 units of packed red blood cells for hemoglobin of 6.7 with significant
improvement to 11.8 at the time of discharge. There was no active bleeding noted. B12 and iron levels were normal. She had a normal retake count and her lactate dehydrogenase values were not consistent with hemolysis. Again an element of fluid
shifts contributing to the low hemoglobin is certainly a consideration. Serum copper level has been checked by hematology and is pending. Otherwise, these medical issues were stable and medications were continued as able.
Patient is stable for discharge home at this time. If there are any questions regarding this dictation or her hospital stay, please do not hesitate to call. Our office number is [phone].
Important imaging findings :
ABDOMINAL/PELVIC CT SCAN IMPRESSION:
Small to moderate bilateral pleural effusions. Adjacent parenchymal consolidation, likely atelectasis.
Progressive severe diffuse diminished hepatic parenchymal attenuation. Most likely severe hepatic fatty infiltration.
Prior Whipple procedure. Gallbladder surgically absent. No apparent biliary ductal dilatation.
At the level of the pancreaticojejunostomy, soft tissue examination is somewhat indistinct. Cannot exclude possibility of mild pancreatitis.
Colonic diverticulosis without acute diverticulitis. No bowel obstruction.
No obstructive uropathy.
Moderate to large volume ascites.
Anasarca.
Procedure findings :
PARACENTESIS FINDINGS: 2300 cc of clear yellow ascitic fluid was evacuated. Samples sent for analysis as requested.
Discharge Plan
-
Patient Disposition: Home with Home Care
Discharge Diagnosis/Procedures: History of pancreatic cancer status post Whipple and finished with chemotherapy, new onset ascites and abdominal pain, bilateral lower extremity edema, acute anemia on anemia of chronic disease, hypokalemia,
gastroesophageal reflux disease, essential hypertension, osteopenia, arthritis, chronic elevated liver function tests
Condition: Good
Diet: As tolerated, Regular and Supplements
Activity: As tolerated
Driving Restrictions: As prior to admission
Bathing Restrictions: None
Other Services: PT and OT
Referrals:
Aramis George DO [Family Provider] - in less than 1 week
Genoveva Jarrett MD [Active] - (as scheduled)
Prescriptions:
New
acetaminophen 325 mg Tablet
650 mg PO Q6HPRN PRN (Reason: mild pain/ fever>100.5F) Qty: 1 0RF
bisacodyl 10 mg Suppository
10 mg PA [id number] PRN (Reason: constipation) Qty: 0 0RF
Creon
24,000 cap PO TID Qty: 0 0RF
Continued
omeprazole 40 mg capsule,delayed release(DR/EC)
40 mg PO DAILY
furosemide [Lasix] 20 mg tablet
20 mg PO DAILY Qty: 5 0RF
therapeutic multivitamin Tablet
1 tab PO Q48H
diltiazem HCl 120 mg capsule,extended release 24hr
120 mg PO DAILY
hydrocortisone 2.5 % Cream
1 applic TOPICAL DAILYPRN PRN (Reason: hemorrhoids)
Metamucil 3.4 gram/5.4 gram Powder
1 tsp PO DAILY
potassium chloride 20 mEq Tablet,Er Particles/Crystals
20 meq PO DAILY
Patient Comments:
08/25/24: Patient states she is using old script from last year, this was filled November 2023.
Discharge Orders:
Discharge Patient (As Directed); Ordered 08/28/24
Ordered By: Linda Sexton
Discharge Date and Time
Print Language: MALIAN
[2024-08-29 13:00] LABS: CA 19-9 38 U/mL (<=35)
[2024-08-29 20:35] LABS: Copper, Serum 46.4 ug/dL (80.0-155.0)
== END 2024-08-28 13:10 | disposition home health service (06) | DRG 436 ==
LOC: 3 WEST ACU 17:59
PROVIDERS: Internal Medicine Hematology & Oncology; Physician Assistant; Radiology Vascular & Interventional Radiology; Student in an Organized Health Care Education/Training Program; ADMITTING PHYSICIAN Internal Medicine; ATTENDING PHYSICIAN Internal Medicine; CONSULT PHYSICIAN Internal Medicine Hematology & Oncology; EMERGENCY PHYSICIAN Emergency Medicine; FAMILY PHYSICIAN Internal Medicine
PROC: 30233N1 Transfusion of Nonautologous Red Blood Cells into Peripheral Vein, Percutaneous Approach (ICD-10-PCS; 2024-08-26)
PROC: 0W9G3ZX Drainage of Peritoneal Cavity, Percutaneous Approach, Diagnostic (ICD-10-PCS; 2024-08-26)
DX: C25.9 Malignant neoplasm of pancreas, unspecified (principal); D61.818 Other pancytopenia; E44.0 Moderate protein-calorie malnutrition; R64 Cachexia; J90 Pleural effusion, not elsewhere classified; J98.11 Atelectasis; R18.0 Malignant ascites; Z87.891 Personal history of nicotine dependence; E87.6 Hypokalemia; K21.9 Gastro-esophageal reflux disease without esophagitis; I10 Essential (primary) hypertension; D63.8 Anemia in other chronic diseases classified elsewhere; M19.90 Unspecified osteoarthritis, unspecified site; M85.80 Other specified disorders of bone density and structure, unspecified site; Z66 Do not resuscitate; K64.9 Unspecified hemorrhoids; Z68.24 Body mass index [BMI] 24.0-24.9, adult; Z90.411 Acquired partial absence of pancreas; K57.30 Diverticulosis of large intestine without perforation or abscess without bleeding; Z79.899 Other long term (current) drug therapy; Z92.21 Personal history of antineoplastic chemotherapy
CPT/HCPCS: 88305; 36415; 49083; 71046; 74019; 74177; 80053; 82042; 82525; 82550; 82570; 82607; 83540; 83550; 83690; 83735; 83880; 84156; 84439; 84443; 85025; 85027; 85045; 86301; 86850; 86900; 86901; 86920; 87015; 87070; 87205; 88112; 89051; 93306; 93356; 97162; 97166; 99285; P9016; P9047; Q9967

== ENCOUNTER → 2024-09-12 12:34 | Outpatient (REF) | payer MEDICARE, OTHER, SELFPAY ==
[2024-09-12 13:32] LABS: % Basophils 0.2 % (0-2); % Eosinophils 0.9 % (0-6); % Immature Granulocytes 0.2 % (0-0.5); % Lymphocytes 43.6 % (20.5-51.1); % Monocytes 12.1 % (1.7-9.3); Absolute Lymphocytes 1.8 10^3/uL (1.2-3.4); Absolute Monocytes 0.5 10^3/uL (0.1-0.6); Absolute Neutrophils 1.8 10^3/uL (1.4-6.5); Hematocrit 29.9 % (37.0-47.0); Mean Corp Hgb Conc. 33.4 g/dL (33.0-37.0); Mean Corpuscular Hgb 33.4 pg (27.0-31.0); Mean Platelet Volume 11.7 fL (7.4-10.4); Nucleated Red Blood Cells % 0 %; Platelet Count 166 10^3/uL (130-400); Red Blood Cell Count 2.99 10^6/uL (4.20-5.40); White Blood Cell Count 4.2 10^3/uL (4.8-10.8)
[2024-09-12 14:01] LABS: ALT (SGPT) 55 U/L (0-35); AST (SGOT) 81 U/L (14-36); Albumin 2.8 g/dl (3.5-5.0); Alkaline Phosphatase 138 U/L (38-126); Blood Urea Nitrogen 14 mg/dl (7-17); Calcium 8.5 mg/dl (8.4-10.2); Carbon Dioxide 28 mmol/L (22-30); Chloride 109 mmol/L (98-107); Glucose 116 mg/dl (70-99); Magnesium 1.9 mg/dl (1.6-2.3); Potassium 3.3 mmol/L (3.5-5.1); Sodium 145 mmol/L (135-145); Total Bilirubin 1.4 mg/dl (0.2-1.3); Total Protein 7.2 g/dl (6.3-8.2); eGFR > 60.00
[2024-09-15 02:09] LABS: CA 19-9 44 U/mL (<=35)
== END ==
LOC: REG 12:34
PROVIDERS: ATTENDING PHYSICIAN Internal Medicine Hematology & Oncology; FAMILY PHYSICIAN Internal Medicine
DX: C25.0 Malignant neoplasm of head of pancreas (principal); D69.6 Thrombocytopenia, unspecified; E87.6 Hypokalemia; Z12.31 Encounter for screening mammogram for malignant neoplasm of breast
CPT/HCPCS: 36415; 80053; 83735; 85025; 86301

== ENCOUNTER → 2024-09-26 12:09 | Outpatient (REF) | payer MEDICARE, OTHER, SELFPAY ==
[2024-09-26 13:32] LABS: % Basophils 0.3 % (0-2); % Eosinophils 0.8 % (0-6); % Immature Granulocytes 0.3 % (0-0.5); % Monocytes 15.3 % (1.7-9.3); % Neutrophils 44.3 % (42.2-75.2); Absolute Lymphocytes 1.5 10^3/uL (1.2-3.4); Absolute Monocytes 0.6 10^3/uL (0.1-0.6); Absolute Neutrophils 1.7 10^3/uL (1.4-6.5); Hematocrit 28.5 % (37.0-47.0); Hemoglobin 9.6 g/dL (12.0-16.0); Mean Corp Hgb Conc. 33.7 g/dL (33.0-37.0); Mean Corpuscular Hgb 33.6 pg (27.0-31.0); Mean Corpuscular Volume 99.7 fL (81.0-99.0); Mean Platelet Volume 10.5 fL (7.4-10.4); Nucleated Red Blood Cells % 0 %; Platelet Count 189 10^3/uL (130-400); Red Blood Cell Count 2.86 10^6/uL (4.20-5.40); Red Cell Dist. Width 18.6 % (11.5-14.5); White Blood Cell Count 3.9 10^3/uL (4.8-10.8)
[2024-09-26 13:59] LABS: ALT (SGPT) 34 U/L (0-35); AST (SGOT) 51 U/L (14-36); Albumin 2.7 g/dl (3.5-5.0); Alkaline Phosphatase 138 U/L (38-126); Blood Urea Nitrogen 10 mg/dl (7-17); Calcium 8.3 mg/dl (8.4-10.2); Carbon Dioxide 26 mmol/L (22-30); Chloride 110 mmol/L (98-107); Glucose 88 mg/dl (70-99); Magnesium 1.9 mg/dl (1.6-2.3); Sodium 143 mmol/L (135-145); Total Bilirubin 1.2 mg/dl (0.2-1.3); eGFR > 60.00
[2024-09-29 07:35] LABS: CA 19-9 40 U/mL (<=35)
== END ==
LOC: REG 12:09
PROVIDERS: ATTENDING PHYSICIAN Internal Medicine Hematology & Oncology; FAMILY PHYSICIAN Internal Medicine
DX: C25.0 Malignant neoplasm of head of pancreas (principal); D69.6 Thrombocytopenia, unspecified; E87.6 Hypokalemia; Z12.31 Encounter for screening mammogram for malignant neoplasm of breast
CPT/HCPCS: 36415; 80053; 83735; 85025; 86301

== ENCOUNTER → 2024-10-07 10:43 | Outpatient (REF) | payer MEDICARE, OTHER, SELFPAY ==
[2024-10-07 11:24] LABS: % Basophils 0.3 % (0-2); % Eosinophils 0.5 % (0-6); % Immature Granulocytes 0.3 % (0-0.5); % Lymphocytes 37.5 % (20.5-51.1); % Monocytes 13.5 % (1.7-9.3); % Neutrophils 47.9 % (42.2-75.2); Absolute Lymphocytes 1.4 10^3/uL (1.2-3.4); Absolute Monocytes 0.5 10^3/uL (0.1-0.6); Absolute Neutrophils 1.8 10^3/uL (1.4-6.5); Hematocrit 27.8 % (37.0-47.0); Hemoglobin 9.3 g/dL (12.0-16.0); Mean Corp Hgb Conc. 33.5 g/dL (33.0-37.0); Mean Corpuscular Hgb 33.9 pg (27.0-31.0); Mean Corpuscular Volume 101.5 fL (81.0-99.0); Mean Platelet Volume 10.4 fL (7.4-10.4); Nucleated Red Blood Cells % 0 %; Platelet Count 168 10^3/uL (130-400); Red Blood Cell Count 2.74 10^6/uL (4.20-5.40); Red Cell Dist. Width 17.9 % (11.5-14.5); White Blood Cell Count 3.8 10^3/uL (4.8-10.8)
[2024-10-07 14:02] LABS: ALT (SGPT) 28 U/L (0-35); AST (SGOT) 41 U/L (14-36); Albumin 2.8 g/dl (3.5-5.0); Alkaline Phosphatase 135 U/L (38-126); Blood Urea Nitrogen 12 mg/dl (7-17); Calcium 8.4 mg/dl (8.4-10.2); Carbon Dioxide 22 mmol/L (22-30); Chloride 112 mmol/L (98-107); Glucose 145 mg/dl (70-99); Magnesium 2.1 mg/dl (1.6-2.3); Sodium 144 mmol/L (135-145); Total Bilirubin 0.9 mg/dl (0.2-1.3); Total Protein 6.9 g/dl (6.3-8.2); eGFR > 60.00
[2024-10-09 05:33] LABS: CA 19-9 40 U/mL (<=35)
== END ==
LOC: REG 10:43
PROVIDERS: ATTENDING PHYSICIAN Internal Medicine Hematology & Oncology; FAMILY PHYSICIAN Internal Medicine
DX: C25.0 Malignant neoplasm of head of pancreas (principal); D69.6 Thrombocytopenia, unspecified; E87.6 Hypokalemia; Z12.31 Encounter for screening mammogram for malignant neoplasm of breast
CPT/HCPCS: 36415; 80053; 83735; 85025; 86301

== ENCOUNTER → 2024-11-07 11:19 | Outpatient (REF) | payer MEDICARE, OTHER, SELFPAY ==
[2024-11-07 12:09] LABS: % Basophils 0.5 % (0-2); % Eosinophils 2.2 % (0-6); % Immature Granulocytes 0.3 % (0-0.5); % Lymphocytes 43.7 % (20.5-51.1); % Monocytes 14.3 % (1.7-9.3); Absolute Eosinophils 0.1 10^3/uL (0-0.7); Absolute Lymphocytes 1.6 10^3/uL (1.2-3.4); Absolute Monocytes 0.5 10^3/uL (0.1-0.6); Absolute Neutrophils 1.5 10^3/uL (1.4-6.5); Hematocrit 28.1 % (37.0-47.0); Hemoglobin 9.3 g/dL (12.0-16.0); Mean Corp Hgb Conc. 33.1 g/dL (33.0-37.0); Mean Corpuscular Hgb 34.8 pg (27.0-31.0); Mean Corpuscular Volume 105.2 fL (81.0-99.0); Mean Platelet Volume 10.4 fL (7.4-10.4); Nucleated Red Blood Cells % 0 %; Platelet Count 187 10^3/uL (130-400); Red Blood Cell Count 2.67 10^6/uL (4.20-5.40); Red Cell Dist. Width 14.3 % (11.5-14.5); White Blood Cell Count 3.7 10^3/uL (4.8-10.8)
[2024-11-07 13:22] LABS: ALT (SGPT) 23 U/L (0-35); AST (SGOT) 32 U/L (14-36); Albumin 3.2 g/dl (3.5-5.0); Alkaline Phosphatase 101 U/L (38-126); Blood Urea Nitrogen 11 mg/dl (7-17); Calcium 8.5 mg/dl (8.4-10.2); Carbon Dioxide 22 mmol/L (22-30); Chloride 116 mmol/L (98-107); Glucose 84 mg/dl (70-99); Magnesium 2.1 mg/dl (1.6-2.3); Potassium 3.8 mmol/L (3.5-5.1); Sodium 144 mmol/L (135-145); Total Bilirubin 0.7 mg/dl (0.2-1.3); Total Protein 6.8 g/dl (6.3-8.2); eGFR > 60.00
[2024-11-09 23:36] LABS: CA 19-9 33 U/mL (<=35)
== END ==
LOC: REG 11:19
PROVIDERS: ATTENDING PHYSICIAN Internal Medicine Hematology & Oncology; FAMILY PHYSICIAN Internal Medicine
DX: C25.0 Malignant neoplasm of head of pancreas (principal); D69.6 Thrombocytopenia, unspecified; E88.09 Other disorders of plasma-protein metabolism, not elsewhere classified; K75.81 Nonalcoholic steatohepatitis (NASH)
CPT/HCPCS: 36415; 80053; 83735; 85025; 86301

== ENCOUNTER → 2024-11-10 14:14 | Outpatient (REF) | payer MEDICARE, OTHER, SELFPAY | LOC: WDC 14:14 | PROVIDERS: ATTENDING PHYSICIAN Internal Medicine Hematology & Oncology; FAMILY PHYSICIAN Internal Medicine | DX: Z12.31 Encounter for screening mammogram for malignant neoplasm of breast (principal) | CPT/HCPCS: 77063; 77067 ==

== ENCOUNTER → 2024-12-12 07:41 | Outpatient (REF) | payer MEDICARE, OTHER, SELFPAY | LOC: RAD 07:41 | PROVIDERS: ATTENDING PHYSICIAN Internal Medicine Hematology & Oncology; FAMILY PHYSICIAN Internal Medicine | DX: K75.81 Nonalcoholic steatohepatitis (NASH) (principal); E88.09 Other disorders of plasma-protein metabolism, not elsewhere classified | CPT/HCPCS: 71260; 74177; Q9967 ==

== ENCOUNTER → 2024-12-21 10:23 | Outpatient (REF) | payer MEDICARE, OTHER, SELFPAY ==
[2024-12-21 11:07] LABS: Hematocrit 31.9 % (37.0-47.0); Hemoglobin 10.5 g/dL (12.0-16.0); Mean Corp Hgb Conc. 32.9 g/dL (33.0-37.0); Mean Corpuscular Volume 107.8 fL (81.0-99.0); Nucleated Red Blood Cells % 0 %; Platelet Count 177 10^3/uL (130-400); Red Cell Dist. Width 12.4 % (11.5-14.5)
[2024-12-21 13:01] LABS: ALT (SGPT) 27 U/L (0-35); AST (SGOT) 30 U/L (14-36); Albumin 3.6 g/dl (3.5-5.0); Alkaline Phosphatase 134 U/L (38-126); Blood Urea Nitrogen 9 mg/dl (7-17); Calcium 8.9 mg/dl (8.4-10.2); Carbon Dioxide 25 mmol/L (22-30); Chloride 110 mmol/L (98-107); Glucose 72 mg/dl (70-99); Magnesium 2.3 mg/dl (1.6-2.3); Potassium 3.9 mmol/L (3.5-5.1); Sodium 142 mmol/L (135-145); Total Protein 7.0 g/dl (6.3-8.2); eGFR > 60.00
[2024-12-26 08:00] LABS: CA 19-9 37 U/mL (<=35)
== END ==
LOC: REG 10:23
PROVIDERS: ATTENDING PHYSICIAN Internal Medicine Hematology & Oncology; FAMILY PHYSICIAN Internal Medicine
DX: C25.0 Malignant neoplasm of head of pancreas (principal); D69.6 Thrombocytopenia, unspecified; E88.09 Other disorders of plasma-protein metabolism, not elsewhere classified; K75.81 Nonalcoholic steatohepatitis (NASH)
CPT/HCPCS: 36415; 80053; 83735; 85025; 86301

== ENCOUNTER → 2025-01-23 13:25 | Outpatient (REF) | payer MEDICARE, OTHER, SELFPAY | LOC: HWRAD 13:25 | PROVIDERS: ATTENDING PHYSICIAN Internal Medicine Critical Care Medicine; FAMILY PHYSICIAN Internal Medicine; REFERRING PHYSICIAN Internal Medicine Hematology & Oncology | DX: R91.8 Other nonspecific abnormal finding of lung field (principal) | CPT/HCPCS: 71250 ==

== ENCOUNTER 2025-01-30 06:14 | Day surgery (SDC) | payer MEDICARE, OTHER, SELFPAY ==
[2025-01-25 14:05] VITALS: BMI 20.9
[2025-01-25 14:20] LABS: Hematocrit 31.6 % (37.0-47.0); Hemoglobin 10.4 g/dL (12.0-16.0); Mean Corp Hgb Conc. 32.9 g/dL (33.0-37.0); Mean Corpuscular Volume 104.6 fL (81.0-99.0); Platelet Count 170 10^3/uL (130-400); Red Cell Dist. Width 12.5 % (11.5-14.5)
[2025-01-25 14:35] LABS: INR 1.05; PT 14.2 Sec (11.4-14.6)
[2025-01-25 14:36] LABS: APTT 32.6 Sec (23.4-35.0)
[2025-01-25 14:43] LABS: Blood Urea Nitrogen 15 mg/dl (7-17); Calcium 9.4 mg/dl (8.4-10.2); Carbon Dioxide 26 mmol/L (22-30); Chloride 109 mmol/L (98-107); Estimated Creatinine Clearance 56 ml/min; Glucose 85 mg/dl (70-99); Potassium 4.0 mmol/L (3.5-5.1); Sodium 142 mmol/L (135-145); eGFR > 60.00
[2025-01-30] VITALS (9 sets, daily range): BP systolic 119–155; BP diastolic 63–71; BMI 20.9; BMI 22.2
[2025-01-30] MEDS: VENTOLIN NEBULES 2.5 MG INH (08:55)
== END 2025-01-30 12:27 | disposition home or self-care (01) ==
LOC: SDS 06:14
PROVIDERS: ATTENDING PHYSICIAN Internal Medicine Critical Care Medicine; FAMILY PHYSICIAN Internal Medicine
DX: R59.0 Localized enlarged lymph nodes (principal); R91.8 Other nonspecific abnormal finding of lung field; C78.01 Secondary malignant neoplasm of right lung
CPT/HCPCS: 31629; 31653; 31628; 31627; 31623; 31624; 31654; 36415; 71045; 76000; 80048; 85027; 85610; 85730; 87070; 87102; 87116; 87205; 88112; 88173; 88305; 88333; 88341; 88342; 93005; 94640; C1887

== ENCOUNTER → 2025-03-17 14:56 | Outpatient (REF) | payer MEDICARE, OTHER, SELFPAY | LOC: RAD 14:56 | PROVIDERS: ATTENDING PHYSICIAN Internal Medicine Hematology & Oncology; FAMILY PHYSICIAN Internal Medicine | DX: K75.81 Nonalcoholic steatohepatitis (NASH) (principal); C25.0 Malignant neoplasm of head of pancreas; R91.8 Other nonspecific abnormal finding of lung field; C78.00 Secondary malignant neoplasm of unspecified lung | CPT/HCPCS: 71260; 74177; Q9967 ==

== ENCOUNTER → 2025-03-29 08:28 | Outpatient (REF) | payer MEDICARE, OTHER, SELFPAY ==
[2025-03-29 10:05] LABS: Hematocrit 32.9 % (37.0-47.0); Hemoglobin 10.6 g/dL (12.0-16.0); Mean Corp Hgb Conc. 32.2 g/dL (33.0-37.0); Mean Corpuscular Volume 102.8 fL (81.0-99.0); Nucleated Red Blood Cells % 0 %; Platelet Count 192 10^3/uL (130-400); Red Cell Dist. Width 12.3 % (11.5-14.5)
[2025-03-29 10:18] LABS: ALT (SGPT) 21 U/L (0-35); AST (SGOT) 27 U/L (14-36); Albumin 3.5 g/dl (3.5-5.0); Alkaline Phosphatase 202 U/L (38-126); Blood Urea Nitrogen 9 mg/dl (7-17); Calcium 8.9 mg/dl (8.4-10.2); Carbon Dioxide 27 mmol/L (22-30); Chloride 109 mmol/L (98-107); Glucose 107 mg/dl (70-99); Potassium 3.7 mmol/L (3.5-5.1); Sodium 139 mmol/L (135-145); Total Protein 7.2 g/dl (6.3-8.2); eGFR > 60.00
== END ==
LOC: REG 08:28
PROVIDERS: ATTENDING PHYSICIAN Internal Medicine Hematology & Oncology; FAMILY PHYSICIAN Internal Medicine
DX: C25.0 Malignant neoplasm of head of pancreas (principal); D69.6 Thrombocytopenia, unspecified; E88.09 Other disorders of plasma-protein metabolism, not elsewhere classified; K75.81 Nonalcoholic steatohepatitis (NASH); R91.8 Other nonspecific abnormal finding of lung field; C78.00 Secondary malignant neoplasm of unspecified lung
CPT/HCPCS: 36415; 80053; 85025

== ENCOUNTER → 2025-04-04 10:27 | Outpatient (REF) | payer MEDICARE, OTHER, SELFPAY ==
[2025-04-04 11:20] LABS: Hematocrit 33.3 % (37.0-47.0); Hemoglobin 10.7 g/dL (12.0-16.0); Mean Corp Hgb Conc. 32.1 g/dL (33.0-37.0); Mean Corpuscular Volume 104.7 fL (81.0-99.0); Nucleated Red Blood Cells % 0 %; Platelet Count 122 10^3/uL (130-400); Red Cell Dist. Width 12.0 % (11.5-14.5)
[2025-04-04 11:46] LABS: ALT (SGPT) 39 U/L (0-35); AST (SGOT) 31 U/L (14-36); Albumin 3.7 g/dl (3.5-5.0); Alkaline Phosphatase 188 U/L (38-126); Blood Urea Nitrogen 13 mg/dl (7-17); Calcium 8.8 mg/dl (8.4-10.2); Carbon Dioxide 26 mmol/L (22-30); Chloride 105 mmol/L (98-107); Glucose 93 mg/dl (70-99); Potassium 4.2 mmol/L (3.5-5.1); Sodium 136 mmol/L (135-145); Total Protein 7.3 g/dl (6.3-8.2); eGFR > 60.00
== END ==
LOC: REG 10:27
PROVIDERS: ATTENDING PHYSICIAN Internal Medicine Hematology & Oncology; FAMILY PHYSICIAN Internal Medicine
DX: C25.0 Malignant neoplasm of head of pancreas (principal); D69.6 Thrombocytopenia, unspecified; E88.09 Other disorders of plasma-protein metabolism, not elsewhere classified; K75.81 Nonalcoholic steatohepatitis (NASH); R91.8 Other nonspecific abnormal finding of lung field; C78.00 Secondary malignant neoplasm of unspecified lung
CPT/HCPCS: 36415; 80053; 85025

== ENCOUNTER → 2025-04-11 10:22 | Outpatient (REF) | payer MEDICARE, OTHER, SELFPAY ==
[2025-04-11 11:35] LABS: ALT (SGPT) 52 U/L (0-35); AST (SGOT) 25 U/L (14-36); Albumin 3.5 g/dl (3.5-5.0); Alkaline Phosphatase 179 U/L (38-126); Blood Urea Nitrogen 15 mg/dl (7-17); Calcium 8.6 mg/dl (8.4-10.2); Carbon Dioxide 25 mmol/L (22-30); Chloride 106 mmol/L (98-107); Glucose 160 mg/dl (70-99); Potassium 3.8 mmol/L (3.5-5.1); Sodium 136 mmol/L (135-145); Total Protein 7.0 g/dl (6.3-8.2); eGFR > 60.00
[2025-04-11 12:22] LABS: Hematocrit 30.4 % (37.0-47.0); Hemoglobin 9.9 g/dL (12.0-16.0); Mean Corp Hgb Conc. 32.6 g/dL (33.0-37.0); Mean Corpuscular Volume 100.7 fL (81.0-99.0); Nucleated Red Blood Cells % 0 %; Red Cell Dist. Width 11.7 % (11.5-14.5)
[2025-04-12 09:54] LABS: Platelet Count 41 10^3/uL (130-400)
== END ==
LOC: REG 10:22
PROVIDERS: ATTENDING PHYSICIAN Internal Medicine Hematology & Oncology; FAMILY PHYSICIAN Internal Medicine
DX: C25.0 Malignant neoplasm of head of pancreas (principal); D69.6 Thrombocytopenia, unspecified; E88.09 Other disorders of plasma-protein metabolism, not elsewhere classified; K75.81 Nonalcoholic steatohepatitis (NASH); R91.8 Other nonspecific abnormal finding of lung field; C78.00 Secondary malignant neoplasm of unspecified lung
CPT/HCPCS: 36415; 80053; 85025

== ENCOUNTER → 2025-04-17 12:32 | Outpatient (REF) | payer MEDICARE, OTHER, SELFPAY ==
[2025-04-17 13:25] LABS: Hematocrit 30.2 % (37.0-47.0); Hemoglobin 9.7 g/dL (12.0-16.0); Mean Corp Hgb Conc. 32.1 g/dL (33.0-37.0); Mean Corpuscular Volume 100.7 fL (81.0-99.0); Platelet Count 69 10^3/uL (130-400); Red Cell Dist. Width 12.9 % (11.5-14.5)
[2025-04-17 13:39] LABS: ALT (SGPT) 26 U/L (0-35); AST (SGOT) 37 U/L (14-36); Albumin 3.5 g/dl (3.5-5.0); Alkaline Phosphatase 308 U/L (38-126); Blood Urea Nitrogen 12 mg/dl (7-17); Calcium 9.1 mg/dl (8.4-10.2); Carbon Dioxide 28 mmol/L (22-30); Chloride 103 mmol/L (98-107); Glucose 90 mg/dl (70-99); Potassium 2.8 mmol/L (3.5-5.1); Sodium 138 mmol/L (135-145); Total Protein 6.8 g/dl (6.3-8.2); eGFR > 60.00
[2025-04-17 15:02] LABS: Absolute Neutrophils -Man Diff 22.9 10^3/uL (1.4-6.5); Normal RBC Morphology Yes; Platelets Checked Yes; Total Cells Counted 100
[2025-04-18 12:39] LABS: Magnesium 1.9 mg/dl (1.6-2.3)
== END ==
LOC: REG 12:32
PROVIDERS: ATTENDING PHYSICIAN Internal Medicine Hematology & Oncology; FAMILY PHYSICIAN Internal Medicine
DX: C25.0 Malignant neoplasm of head of pancreas (principal); D69.6 Thrombocytopenia, unspecified; E88.09 Other disorders of plasma-protein metabolism, not elsewhere classified; K75.81 Nonalcoholic steatohepatitis (NASH); R91.8 Other nonspecific abnormal finding of lung field; C78.00 Secondary malignant neoplasm of unspecified lung
CPT/HCPCS: 36415; 80053; 83735; 85025

== ENCOUNTER → 2025-04-25 10:48 | Outpatient (REF) | payer MEDICARE, OTHER, SELFPAY ==
[2025-04-25 11:16] LABS: Hematocrit 30.4 % (37.0-47.0); Hemoglobin 9.8 g/dL (12.0-16.0); Mean Corp Hgb Conc. 32.2 g/dL (33.0-37.0); Mean Corpuscular Volume 102.4 fL (81.0-99.0); Nucleated Red Blood Cells % 0 %; Platelet Count 245 10^3/uL (130-400); Red Cell Dist. Width 14.6 % (11.5-14.5)
[2025-04-25 11:33] LABS: ALT (SGPT) 22 U/L (0-35); AST (SGOT) 26 U/L (14-36); Albumin 3.5 g/dl (3.5-5.0); Alkaline Phosphatase 310 U/L (38-126); Blood Urea Nitrogen 11 mg/dl (7-17); Calcium 8.7 mg/dl (8.4-10.2); Carbon Dioxide 27 mmol/L (22-30); Chloride 109 mmol/L (98-107); Glucose 100 mg/dl (70-99); Potassium 4.3 mmol/L (3.5-5.1); Sodium 141 mmol/L (135-145); Total Protein 6.8 g/dl (6.3-8.2); eGFR > 60.00
[2025-04-26 15:51] LABS: CA 19-9 51 U/mL (<=35)
== END ==
LOC: REG 10:48
PROVIDERS: ATTENDING PHYSICIAN Internal Medicine Hematology & Oncology; FAMILY PHYSICIAN Internal Medicine
DX: C25.0 Malignant neoplasm of head of pancreas (principal); D69.6 Thrombocytopenia, unspecified; E88.09 Other disorders of plasma-protein metabolism, not elsewhere classified; K75.81 Nonalcoholic steatohepatitis (NASH); R91.8 Other nonspecific abnormal finding of lung field; C78.00 Secondary malignant neoplasm of unspecified lung
CPT/HCPCS: 36415; 80053; 85025; 86301

== ENCOUNTER → 2025-05-08 11:25 | Outpatient (REF) | payer MEDICARE, OTHER, SELFPAY ==
[2025-05-08 12:19] LABS: Hematocrit 24.3 % (37.0-47.0); Hemoglobin 7.9 g/dL (12.0-16.0); Mean Corp Hgb Conc. 32.5 g/dL (33.0-37.0); Mean Corpuscular Volume 104.3 fL (81.0-99.0); Red Cell Dist. Width 15.4 % (11.5-14.5)
[2025-05-08 13:00] LABS: ALT (SGPT) 36 U/L (0-35); AST (SGOT) 27 U/L (14-36); Albumin 3.2 g/dl (3.5-5.0); Alkaline Phosphatase 210 U/L (38-126); Blood Urea Nitrogen 12 mg/dl (7-17); Calcium 8.4 mg/dl (8.4-10.2); Carbon Dioxide 25 mmol/L (22-30); Chloride 110 mmol/L (98-107); Glucose 92 mg/dl (70-99); Potassium 3.7 mmol/L (3.5-5.1); Sodium 140 mmol/L (135-145); Total Protein 6.2 g/dl (6.3-8.2); eGFR > 60.00
[2025-05-08 13:06] LABS: Nucleated Red Blood Cells % 0 %; Platelet Count 60 10^3/uL (130-400)
[2025-05-09 13:39] LABS: CA 19-9 33 U/mL (<=35)
== END ==
LOC: REG 11:25
PROVIDERS: ATTENDING PHYSICIAN Internal Medicine Hematology & Oncology; FAMILY PHYSICIAN Internal Medicine
DX: C25.0 Malignant neoplasm of head of pancreas (principal); D69.6 Thrombocytopenia, unspecified; E88.09 Other disorders of plasma-protein metabolism, not elsewhere classified; K75.81 Nonalcoholic steatohepatitis (NASH); R91.8 Other nonspecific abnormal finding of lung field; C78.00 Secondary malignant neoplasm of unspecified lung
CPT/HCPCS: 36415; 80053; 85025; 86301

== ENCOUNTER → 2025-05-15 11:31 | Outpatient (REF) | payer MEDICARE, OTHER, SELFPAY ==
[2025-05-15 13:09] LABS: ALT (SGPT) 25 U/L (0-35); AST (SGOT) 26 U/L (14-36); Albumin 3.4 g/dl (3.5-5.0); Alkaline Phosphatase 258 U/L (38-126); Blood Urea Nitrogen 10 mg/dl (7-17); Calcium 8.7 mg/dl (8.4-10.2); Carbon Dioxide 26 mmol/L (22-30); Chloride 110 mmol/L (98-107); Glucose 82 mg/dl (70-99); Potassium 4.0 mmol/L (3.5-5.1); Sodium 141 mmol/L (135-145); Total Protein 6.5 g/dl (6.3-8.2); eGFR > 60.00
[2025-05-15 14:01] LABS: Absolute Neutrophils -Man Diff 1.1 10^3/uL (1.4-6.5); Hematocrit 28.9 % (37.0-47.0); Hemoglobin 9.1 g/dL (12.0-16.0); Mean Corp Hgb Conc. 31.5 g/dL (33.0-37.0); Mean Corpuscular Volume 110.3 fL (81.0-99.0); Platelet Count 181 10^3/uL (130-400); Platelets Checked Yes; Red Cell Dist. Width 16.5 % (11.5-14.5)
[2025-05-15 14:02] LABS: Anisocytosis 1+; Hypochromasia 1+; Normal RBC Morphology No; Ovalocytes 1+; Polychromasia 1+; Total Cells Counted 100
[2025-05-17 10:12] LABS: CA 19-9 33 U/mL (<=35)
== END ==
LOC: REG 11:31
PROVIDERS: ATTENDING PHYSICIAN Internal Medicine Hematology & Oncology; FAMILY PHYSICIAN Internal Medicine
DX: C25.0 Malignant neoplasm of head of pancreas (principal); D69.6 Thrombocytopenia, unspecified; E88.09 Other disorders of plasma-protein metabolism, not elsewhere classified; K75.81 Nonalcoholic steatohepatitis (NASH); R91.8 Other nonspecific abnormal finding of lung field; C78.00 Secondary malignant neoplasm of unspecified lung
CPT/HCPCS: 36415; 80053; 85025; 86301

== ENCOUNTER → 2025-05-29 11:23 | Outpatient (REF) | payer MEDICARE, OTHER, SELFPAY ==
[2025-05-29 13:27] LABS: Hematocrit 32.0 % (37.0-47.0); Hemoglobin 10.2 g/dL (12.0-16.0); Mean Corp Hgb Conc. 31.9 g/dL (33.0-37.0); Mean Corpuscular Volume 105.6 fL (81.0-99.0); Platelet Count 96 10^3/uL (130-400); Red Cell Dist. Width 15.9 % (11.5-14.5)
[2025-05-29 13:30] LABS: Nucleated Red Blood Cells % 0 %
[2025-05-29 14:10] LABS: ALT (SGPT) 31 U/L (0-35); AST (SGOT) 32 U/L (14-36); Albumin 3.5 g/dl (3.5-5.0); Alkaline Phosphatase 311 U/L (38-126); Blood Urea Nitrogen 10 mg/dl (7-17); Calcium 8.7 mg/dl (8.4-10.2); Carbon Dioxide 25 mmol/L (22-30); Chloride 108 mmol/L (98-107); Glucose 72 mg/dl (70-99); Potassium 4.2 mmol/L (3.5-5.1); Sodium 140 mmol/L (135-145); Total Protein 6.6 g/dl (6.3-8.2); eGFR > 60.00
[2025-05-31 18:39] LABS: CA 19-9 46 U/mL (<=35)
== END ==
LOC: REG 11:23
PROVIDERS: ATTENDING PHYSICIAN Internal Medicine Hematology & Oncology; FAMILY PHYSICIAN Internal Medicine
DX: C25.0 Malignant neoplasm of head of pancreas (principal); D69.6 Thrombocytopenia, unspecified; E88.09 Other disorders of plasma-protein metabolism, not elsewhere classified; K75.81 Nonalcoholic steatohepatitis (NASH); R91.8 Other nonspecific abnormal finding of lung field; C78.00 Secondary malignant neoplasm of unspecified lung
CPT/HCPCS: 36415; 80053; 85025; 86301

== ENCOUNTER 2025-06-02 15:48 | Emergency (ER) | payer MEDICARE, OTHER, SELFPAY ==
[2025-06-02 16:11] VITALS: BP 161/83
[2025-06-02 19:13] LABS: Urine Character Clear (Clear)
[2025-06-02 19:34] LABS: Urine Squamous Cell 0-2 /LPF (Few)
[2025-06-02 19:35] LABS: Urine White Cell 40-50 /HPF (0-5)
--- NOTE | 2025-06-02 23:00 | ED.GENMED ---
History of Present Illness
General
Chief Complaint: Cancer Problem
Source: patient
Exam Limitations: none
Time Seen by Provider: 06/02/25 17:45
Nursing documentation reviewed up to this point in time: agreed with
History of Present Illness
History of Present Illness:
Patient to the emergency department for evaluation of a protrusion that she noted the vaginal area. She noticed this today. She denies any pain or discharge. Brought to the emergency department by spouse for evaluation.
Past History
Past History
ED Past Medical History: Cancer (pancreatic, lung), GERD and HTN
Social History
Tobacco: Non-smoker
Personal:
Review of Systems
Review of Systems
Allergies reviewed?: Yes
All Other Systems: ROS reviewed and negative except as documented in HPI and ROS
Constitutional: Reports no symptoms
EENT: Reports no symptoms
Respiratory: Reports no symptoms
Cardiac: Reports no symptoms
ABD/GI: Reports no symptoms
: Reports other (Patient reports a small protrusion from urethra)
Musculoskeletal: Reports no symptoms
Skin: Reports no symptoms
Neurological: Reports no symptoms
Psychiatric: Reports no symptoms
Phy Exam
General Physical Exam
General Presentation: well appearing and no apparent distress
General age: appears stated age
General Skin: warm and dry
General Habitus: normal
Gastrointestinal Exam
Gastrointestinal Exam: normal bowel sounds, non tender, soft, no organomegaly and non distended
Genitourinary Exam Female
Exam Female: other (Pea-sized soft mass noted at opening of urethra consistent with urethral caruncle. )
Uterus: other
Musculoskeletal Exam
Musculoskeletal Exam: full ROM and neuro vasc intact
Skin Exam
Skin Exam: normal color, warm/dry and no rash
Psychiatric Exam
Psychiatric Exam: normal mood/affect
Course
Orders/Labs/Results
Orders:
Orders
06/02/25 19:07
Urinalysis Reflex To Culture Urgent
Date Specimen was Collected: 06/02/25
Time Specimen was Collected: 19:05
Urine Microscopic Reflex Cult Urgent
Urine Culture Urgent
PENNY Source: U
Specimen Description:
Date Specimen was Collected: 06/02/25
Time Specimen was Collected: 19:05
Abnormal Lab Results
06/02/25
19:07
Ur Occult Blood Reflex 2+ A
(Negative)
Leukocyte Esterase Rfl 2+ A
(Negative)
Urine RBC 3-6 A /HPF
(0-2)
Urine WBC (Reflex) 40-50 A /HPF
(0-5)
Urine Bacteria (Reflex) Few A
(Negative)
Vital Signs
Initial and Last Documented VS:
Initial Vital Signs
Temp Pulse Resp BP Pulse Ox
98.6 F 65 18 161/83 98
06/02/25 16:11 06/02/25 16:11 06/02/25 16:11 06/02/25 16:11 06/02/25 16:11
Last Documented Vital Signs
Temp Pulse Resp BP Pulse Ox
98.6 F 65 18 161/83 98
06/02/25 16:11 06/02/25 16:11 06/02/25 16:11 06/02/25 16:11 06/02/25 23:03
*Pulse Oximetry
SaO2: 98
Oxygen Mode of Delivery: Room air
Patient hypoxic: no
*Critical Care Note
Total Time (30-74mins, 75-104mins- exclusive of procedures): Not Applicable
Update Note
Update Note:
Patient to the emergency department for evaluation of a small protrusion in the vaginal area. She noticed this today. She has no pain at the site. Does not recall having this issue in the past. On exam a pea-sized lesion was noted at the
urethra, suspect urethral caruncle. Discussed finding with patient. She will be discharged home. She was given the number for urology to follow-up with. She will also follow-up with [employer]. She is given instructions on signs and symptoms to return
to the emergency department she is agreeable to this plan.
ED Attending Note
-
Portions of this chart may have been created with voice recognition software.� Occasional wrong word or��sound alike� substitutions may have occurred due to the inherent limitations of voice recognition software.
Discharge Plan
Departure
Patient Disposition: Home (Routine Discharge)
Date of Disposition: 06/02/25
Time of Disposition: 19:05
Patient with high blood pressure during this ER visit?: No
Condition: Good
Covid-19: Not Applicable
Discharge Problem:
Urethral caruncle
Instructions: General
Prescriptions:
No Action
omeprazole 40 mg capsule,delayed release(DR/EC)
40 mg PO DAILY
diltiazem HCl 120 mg capsule,extended release 24hr
120 mg PO DAILY
Creon
24,000 cap PO TID Qty: 0 0RF
calcium carbonate-vitamin D3 [Calcium + D] 600 mg-5 mcg (200 unit) Tablet
1 tab PO DAILY
ibuprofen [Motrin] 400 mg Tablet
400 mg PO Q6H PRN (Reason: pain)
Referrals:
Aramis George DO [Family Provider, Internal Medicine]
Juve Jefferson MD [Active, Urology] - Next open appointment
Activity Restrictions/Additional Instructions:
As we discussed, the lesion that you are feeling is a small urethral caruncle. These are typically benign growths. 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 I also gave you the number for urology, which would also be an
appropriate specialist to follow
Interventions
Interventions:
*General Assessment Last Done: 06/02/25 19:09
*Neglect/Abuse Screening Last Done: 06/02/25 19:09
*ED COVID-19 Vaccine History Last Done: 06/02/25 19:09
*ED Influenza Vaccine History Last Done: 06/02/25 19:09
[facility] Risk Assessment Tool Last Done: 06/02/25 19:09
*Risk Screen - Suicide (C-SSRS) Last Done: 06/02/25 19:09
*Nursing Disposition Last Done: 06/02/25 19:13
Discharge Date and Time
Discharge Date/Time: 06/02/25 19:13
Print Language: CITIZEN [place]
== END 2025-06-02 19:13 | disposition home or self-care (01) ==
LOC: EMR 15:48
PROVIDERS: Nurse Practitioner; EMERGENCY PHYSICIAN Emergency Medicine; FAMILY PHYSICIAN Internal Medicine
DX: N36.2 Urethral caruncle (principal); I10 Essential (primary) hypertension; K21.9 Gastro-esophageal reflux disease without esophagitis; Z85.07 Personal history of malignant neoplasm of pancreas; Z85.118 Personal history of other malignant neoplasm of bronchus and lung
CPT/HCPCS: 99283; 81003; 81015; 87086

== ENCOUNTER → 2025-06-05 13:49 | Outpatient (REF) | payer MEDICARE, OTHER, SELFPAY ==
[2025-06-05 14:48] LABS: Hematocrit 32.7 % (37.0-47.0); Hemoglobin 10.4 g/dL (12.0-16.0); Mean Corp Hgb Conc. 31.8 g/dL (33.0-37.0); Mean Corpuscular Volume 105.8 fL (81.0-99.0); Nucleated Red Blood Cells % 0 %; Platelet Count 218 10^3/uL (130-400); Red Cell Dist. Width 15.9 % (11.5-14.5)
[2025-06-05 15:14] LABS: ALT (SGPT) 26 U/L (0-35); AST (SGOT) 33 U/L (14-36); Albumin 3.6 g/dl (3.5-5.0); Alkaline Phosphatase 260 U/L (38-126); Blood Urea Nitrogen 10 mg/dl (7-17); Calcium 8.8 mg/dl (8.4-10.2); Carbon Dioxide 29 mmol/L (22-30); Chloride 109 mmol/L (98-107); Glucose 113 mg/dl (70-99); Potassium 4.6 mmol/L (3.5-5.1); Sodium 141 mmol/L (135-145); Total Protein 6.9 g/dl (6.3-8.2); eGFR > 60.00
== END ==
LOC: REG 13:49
PROVIDERS: ATTENDING PHYSICIAN Internal Medicine Hematology & Oncology
DX: C25.0 Malignant neoplasm of head of pancreas (principal); D69.6 Thrombocytopenia, unspecified; E88.09 Other disorders of plasma-protein metabolism, not elsewhere classified; K75.81 Nonalcoholic steatohepatitis (NASH); R91.8 Other nonspecific abnormal finding of lung field; C78.00 Secondary malignant neoplasm of unspecified lung
CPT/HCPCS: 36415; 80053; 85025